=== PATIENT | female | born 1960 | race Caucasian/White ===

== ENCOUNTER 2016-05-08 23:27 | Observation (INO) | payer OTHER ==
[2016-05-08] MEDS ORDERED: MORPHINE SULFATE 4 MG/ML SYRINGE IV STA (23:45)
[2016-05-08] MEDS ORDERED: ASPIRIN 81 MG CHEW PO STA (23:45)
[2016-05-08] MEDS ORDERED: NITROGLYCERIN OINT 1 INCH/GM PACKET TOPICAL STA (23:45)
[2016-05-08] MEDS ORDERED: SODIUM CHLORIDE 0.9% 1,000 ML IV STA (23:45)
[2016-05-08] MEDS ORDERED: ONDANSETRON 4 MG/2 ML VIAL IVP STA (23:45)
[2016-05-08 23:58] LABS: Basophils % (A) 1 %; CH 32.1; CHCM 33.4; Eosinophils # (A) 0.3 k/uL (0-0.7); Eosinophils % (A) 3 %; HCT 42.9 % (34.0-46.0); HDW 2.43; HGB 14.3 gm/dL (11.4-16.0); Luc # (Auto) 0.12; Luc % (Auto) 1; Lymphocytes # (A) 2.5 k/uL (1.0-4.8); Lymphocytes % (A) 30 %; MCH 32.2 pg (25.0-35.0); MCHC 33.3 g/dL (31.0-37.0); MCV 96.7 fL (80.0-100.0); Mean Platelet Volume 7.4; Monocytes # (A) 0.4 k/uL (0-1.0); Monocytes % (A) 4 %; Neutrophils # (A) 5.1 k/uL (1.3-7.7); Neutrophils % (A) 61 %; RBC 4.43 m/uL (3.80-5.40); RDW 13.7 % (11.5-15.5); WBC 8.4 k/uL (3.8-10.6); WBC (Perox) 8.36
[2016-05-09 00:08] LABS: ALT 29 U/L (9-52); AST 28 U/L (14-36); Alkaline Phosphatase 88 U/L (38-126); Anion Gap 12 mmol/L; Blood Urea Nitrogen 14 mg/dL (7-17); Calcium 10.3 mg/dL (8.4-10.2); Carbon Dioxide 28 mmol/L (22-30); Chloride 106 mmol/L (98-107); Glucose 84 mg/dL (74-99); Magnesium 2.2 mg/dL (1.6-2.3); Non-African American GFR(MDRD) >60 (>60 ml/min/1.73 sqM); Potassium 3.5 mmol/L (3.5-5.1); Sodium 146 mmol/L (137-145); Total Bilirubin 0.4 mg/dL (0.2-1.3); Total Protein 7.6 g/dL (6.3-8.2)
[2016-05-09 00:14] LABS: Partial Thromboplastin Time 24.2 sec (22.0-30.0); Prothrombin Time 9.9 sec (9.0-12.0)
[2016-05-09 00:20] LABS: Creatine Kinase 73 U/L (30-135)
[2016-05-09 00:33] LABS: Creatine Kinase MB 0.8 ng/mL (0.0-2.4); Troponin I <0.012 ng/mL (0.000-0.034)
--- NOTE | 2016-05-09 00:41 | XR ---
Chest PA and lateral views INDICATION: Chest pain COMPARISON: CXR 08/30/14 FINDINGS: PA and lateral views of the chest are obtained. The cardiomediastinal silhouette is within normal limits. Lungs are clear. No pleural effusion or pneumothorax. Bony elements are within normal limits. IMPRESSION: No radiographic evidence of acute cardiopulmonary disease.
[2016-05-09] MEDS ORDERED: HEPARIN SODIUM,PORCINE 5,000 UNIT/ML 1 ML VIAL IV ONE (00:49)
[2016-05-09] MEDS ORDERED: NITROGLYCERIN SL TABS 0.4 MG TAB SUBLINGUAL PRN (00:49)
--- NOTE | 2016-05-09 00:49 | ED ---
Chest Pain HPI - General Chief Complaint: Chest Pain Stated Complaint: Chest pain Time Seen by Provider: 05/08/16 23:36 Source: patient Mode of arrival: wheelchair Limitations: no limitations - History of Present Illness Initial Comments: 56 years old female came in with a chest pain started around 4 PM she was resting at the time denies any nausea no vomiting she had a shortness of breath but then she has a history of COPD chest pain was worse with deep breaths denies any fever or any chills she does cough and bringing up some phlegm so far she has no history of heart disease. Denies any headaches no neck stiffness no abdominal pain no frequency urgency dysuria no sinus symptoms of TIA or CVA - Related Data Home Medications Medication Instructions Recorded Confirmed Dicyclomine [Bentyl] 10 mg PO QID PRN 01/26/14 08/30/14 Ranitidine HCl [Zantac] 150 mg PO BID 01/26/14 08/30/14 clonazePAM [KlonoPIN] 1 mg PO BID PRN 01/26/14 08/30/14 Previous Rx's Medication Instructions Recorded Azithromycin [Zithromax Z-pack] 0 mg PO DIRECTED #6 tab 08/30/14 Promethaz-Cod 6.25-10 mg/5 ml 5 ml PO Q6HR PRN #100 bottle 08/30/14 [Phenergan with Codeine] Allergies Allergy/AdvReac Type Severity Reaction Status Date / Time Penicillins Allergy Unknown Verified 05/08/16 23:32 Childhood Review of Systems ROS Statement: Those systems with pertinent positive or pertinent negative responses have been documented in the HPI. ROS Other: All systems not noted in ROS Statement are negative. EKG Findings - EKG Comments: EKG Findings:: EKG is normal sinus rhythm ventricular rate is 93 IN interval is 136 QRS duration is 80 QT/QTc is 366/455 review of this EKG does not reveal any ST elevation or significant ST depression Past Medical History Past Medical History: COPD, GERD/Reflux Additional Past Medical History / Comment(s): past hx. colon polyps, IBS, hx. ulcerative colitis History of Any Multi-Drug Resistant Organisms: None Reported Past Surgical History: Cholecystectomy, Tonsillectomy Additional Past Surgical History / Comment(s): D & C Past Anesthesia/Blood Transfusion Reactions: No Reported Reaction Past Psychological History: Anxiety Smoking Status: Current every day smoker Past Alcohol Use History: None Reported Past Drug Use History: None Reported General Exam - General Exam Comments Initial Comments: General: The patient is awake and alert, in no distress, and does not appear acutely ill. Skin: Skin is warm and dry and no rashes or lesions are noted. Eye: Pupils are equal, round and reactive to light, extra-ocular movements are intact; there is normal conjunctiva bilaterally. Ears, nose, mouth and throat: There are moist mucous membranes and no oral lesions. Neck: The neck is supple, there is no tenderness or JVD. Cardiovascular: There is a regular rate and rhythm. No murmur, rub or gallop is appreciated. Respiratory: To auscultation bilateral, family is consistent with a moderate to severe COPD Gastrointestinal: Soft, non-distended, non-tender abdomen without masses or organomegaly noted. There is no rebound or guarding present. Bowel sounds are unremarkable. Back: There is no tenderness to palpation in the midline. There is no obvious deformity. Musculoskeletal: Normal ROM, no tenderness, There is no pedal edema. There is no calf tenderness or swelling. No cords were appreciated. Neurological: CN II-XII intact, Cranial nerves III through XII are intact. There are no obvious motor or sensory deficits. Coordination appears grossly intact. Speech is normal. Psychiatric: Cooperative, appropriate mood & affect, normal judgment. Limitations: no limitations Course Vital Signs 05/08/16 05/09/16 23:30 00:30 Temperature 98.2 F Pulse Rate 105 H 78 Respiratory 20 18 Rate Blood Pressure 161/89 162/96 O2 Sat by Pulse 99 98 Oximetry Critical Care Time Total Critical Care Time: 40 Critical Care Time: Her labs were reviewed home and those were explained to the patient patient has a quite a few risk factors she is 56 she has smoked for 44 years and medically very significant family history of heart disease both parents had a heart attack in mid 40s no her mom d-dimer, CBC, troponin, compressive metabolic panel and chest x-ray are normal I plan to heparinize her and admit her for serial cardiac markers she be admitted to the Dr. Fink's service and cardiology be consulted and she'll be heparinized him of this was discussed with the patient and she is agreeable Disposition Clinical Impression: Chest pain, Pleuritic chest pain Disposition: ADMITTED IP TO THIS HOSP Condition: Good
[2016-05-09] MEDS ORDERED: DICYCLOMINE 10 MG CAP PO PRN (00:53)
[2016-05-09] MEDS ORDERED: clonazePAM 1 MG TAB PO PRN (00:53)
[2016-05-09] MEDS ORDERED: HEPARIN SODIUM,PORCINE/D5W PMX 25,000 UNIT in DEXTROSE/WATER 1 500ML.BAG IV SCH (01:15)
[2016-05-09 01:58] VITALS: RESP 16
[2016-05-09] MEDS: MORPHINE SULFATE 2 MG/ML SYRINGE IVP PRN ×3 (03:22→11:53)
[2016-05-09 08:08] LABS: Creatine Kinase 54 U/L (30-135)
[2016-05-09 08:21] LABS: Creatine Kinase MB 0.5 ng/mL (0.0-2.4); Troponin I <0.012 ng/mL (0.000-0.034)
[2016-05-09] MEDS ORDERED: FAMOTIDINE 20 MG TAB PO SCH (09:00)
[2016-05-09] MEDS ORDERED: METOPROLOL TARTRATE 25 MG TAB PO SCH (09:00)
--- NOTE | 2016-05-09 10:54 | CONS ---
DATE OF CONSULTATION: Mrs. Beverly is a 56-year-old female with history of chronic tobacco use, history of hypertension and borderline hyperlipidemia, who presented with chest discomfort. The discomfort started yesterday 4 p.m. and has been continuous. The discomfort is worse when she takes a deep breath. She has mild cough and she is complaining of headache for a few days. Patient has no prior documented history of coronary artery disease. She is quite active physically, has no exertional chest discomfort. She has mild dyspnea related to her smoking. She has occasional palpitation. No peripheral edema. No PND. No orthopnea. She has rare dizziness. Her coronary risk factors are remarkable for smoking about 1 pack a day, borderline hyperlipidemia, and a history of hypertension. Her medications at home include Klonopin, ranitidine, Phenergan with codeine, Bentyl. REVIEW OF SYSTEMS: RESPIRATORY SYSTEM: She has history of for chronic obstructive lung disease and history of chronic tobacco use with cough. GI SYSTEM: No recent GI bleeding. She had a prior history of ulcerative colitis stable. SYSTEM: No dysuria or hematuria. NERVOUS SYSTEM: No stroke or seizure. PHYSICAL EXAMINATION: A 56-year-old female, alert, oriented, in no apparent distress. Blood pressure 131/60 with a heart rate in the 90s. HEAD: Normocephalic. EYES: Sclerae anicteric. NECK: Good upstroke. No bruit. No jugular venous distention. LUNGS: Clear to auscultation. HEART: Regular rate and rhythm. S1, S2, no S3, with systolic murmur heard at the base. No diastolic murmur. No rub. ABDOMEN: Soft, nontender, positive bowel sounds. No organomegaly. EXTREMITIES: No edema. Intact distal pulses. EKG sinus mechanism, normal axis and intervals, normal echocardiogram. Lab data revealed troponin less than 0.012. BUN AND creatinine of 14 and 0.9. Potassium 3.5. Hemoglobin 14.3. Chest x-ray with no infiltrate. IMPRESSION: 1. Chest discomfort, had respirophasic pattern, atypical for ischemic heart disease. 2. History of chronic tobacco use. 3. Prior history of hypertension. RECOMMENDATIONS: I will stop the heparin. I will proceed with stress echocardiogram. If there is no evidence of inducible ischemia, then no further cardiac workup will be needed. I have discussed with the patient the importance of smoking cessation. Thank you for this consult. We will follow with you.
--- NOTE | 2016-05-09 12:03 | ECHOF ---
Referral Reason: MEASUREMENTS -------- HEIGHT: 165.1 cm WEIGHT: 49.9 kg BP: 130/60 RVIDd: 2.7 cm (< 3.3) IVSd: 0.9 cm (0.6 - 1.1) LVIDd: 3.7 cm (3.9 - 5.3) LVPWd: 0.9 cm (0.6 - 1.1) IVSs: 1.0 cm LVIDs: 2.4 cm LVPWs: 1.5 cm LA Diam: 2.6 cm (2.7 - 3.8) LAESV Index (A-L): 14.38 ml/m Ao Diam: 2.7 cm (2.0 - 3.7) LA Diam: 2.9 cm (2.7 - 3.8) MV E Hitesh: 0.79 m/s MV DecT: 212 ms MV A Hitesh: 0.92 m/s MV E/A Ratio: 0.86 RAP: 5.00 mmHg RVSP: 18.74 mmHg FINDINGS -------- Sinus rhythm. This was a technically good study. LV size, wall thickness and systolic function are normal, with an EF greater than 55%. The right ventricle is normal in size. Normal LA size by volume 22+/-6 ml/m2. The right atrial size is normal. The aortic valve is trileaflet, and appears structurally normal. No aortic stenosis or regurgitation. Mild mitral regurgitation is present. Mild tricuspid regurgitation present. There is no evidence of pulmonary hypertension. The right ventricular systolic pressure, as measured by Doppler, is 18.74mmHg. The pulmonic valve is normal. The aortic root size is normal. There is no pericardial effusion. CONCLUSIONS -------- 1. LV size, wall thickness and systolic function are normal, with an EF greater than 55%. 2. Mild mitral regurgitation is present. 3. Mild tricuspid regurgitation present. 4. There is no evidence of pulmonary hypertension. SITE SAFETY REPRESENTATIVE: Fannie Juarez RDCS
[2016-05-09 12:36] VITALS: BP 148/81; PULSE 104; TEMP 98.5
--- NOTE | 2016-05-09 12:52 | P.HPIM ---
History of Present Illness H&P Date: 05/09/16 Chief Complaint: Chest pain HISTORY AND PHYSICAL AND DISCHARGE SUMMARY: This is a 56-year-old female patient of Dr. Malik Cobb with a past medical history of COPD, vitamin D deficiency, gastroesophageal reflux disease with hiatal hernia, irritable bowel syndrome, ulcerative colitis, hepatitis C which patient states went away without treatment, glaucoma status post laser surgery, tobacco use and dependence, anxiety. Patient states that she had chest pain that kept getting worse and worse and when she got out of the car she felt it go into her neck and jaw. She denies any sweats, nausea. She is never had this pain before. She denies any pain with activity. Pain hurts more with deep breathing. She denies any history of neck problems. She does complain of Raynaud's type phenomenon that has not been diagnosed and a family member recommended that she take witches brew and magnesium to treat. She does have a niece diagnosed with lupus and mother had lupus symptoms but not diagnosed. She came into [facility] emergency center for evaluation. Troponin has been negative on 2 draws. Echocardiogram reveals EF of 55%, mild mitral regurgitation, mild tricuspid regurgitation. No pulmonary hypertension. Patient has been placed on the observation unit and seen in consultation by Dr. Ravi from cardiology. Exercise stress test reveals negative for stress-induced ischemia. Cervical spine x-ray shows degenerative disc disease of C5-C6 with posterior spondylosis. Consider MRI follow-up. DAVID and rheumatoid factor are pending. Patient will be discharged home today in stable condition. Review of Systems All systems: negative Constitutional: Denies chills, Denies fever, Denies malaise, Denies poor appetite, Denies sweats, Denies weakness Eyes: denies blurred vision, denies pain Ears, nose, mouth and throat: Denies dysphagia, Denies headache, Denies mouth pain, Denies sore throat Cardiovascular: Reports chest pain, Reports lightheadedness, Denies leg edema, Denies paroxysmal nocturnal dyspnea, Denies shortness of breath, Denies syncope Respiratory: Denies cough, Denies cough with sputum, Denies dyspnea, Denies excessive sputum, Denies wheezing Gastrointestinal: Denies abdominal pain, Denies diarrhea, Denies nausea, Denies vomiting Genitourinary: Denies dysuria, Denies hematuria Musculoskeletal: Reports neck pain, Denies myalgias Integumentary: Denies pruritus, Denies rash Neurological: Denies numbness, Denies weakness Psychiatric: Denies anxiety, Denies depression Endocrine: Denies fatigue, Denies weight change Past Medical History Past Medical History: COPD, GERD/Reflux Additional Past Medical History / Comment(s): Hiatal hernia, past hx. colon polyps, IBS, hx. ulcerative colitis, vitamin D deficiency, hepatitis C which patient states went away without treatment, glaucoma status post laser surgery, infectious mononucleosis History of Any Multi-Drug Resistant Organisms: None Reported Past Surgical History: Cholecystectomy, Tonsillectomy Additional Past Surgical History / Comment(s): D & C, laser surgery for glaucoma Past Anesthesia/Blood Transfusion Reactions: No Reported Reaction Past Psychological History: Anxiety Smoking Status: Current every day smoker Past Alcohol Use History: None Reported Additional Past Alcohol Use History / Comment(s): Patient is a smoker one pack per day since she was 11 years old. She denies any medical marijuana, marijuana , street drug use or alcohol use. Past Drug Use History: None Reported - Past Family History Father Family Medical History: Myocardial Infarction (HI) Additional Family Medical History / Comment(s): 1st in 40's. Father at age 73 from esophageal cancer. Mother Family Medical History: Myocardial Infarction (HI) Additional Family Medical History / Comment(s): 1st in 40's. Mother at age 68 from lung cancer. Brother(s) Additional Family Medical History / Comment(s): She has 2 brothers and one has history of bladder cancer and is a smoker. Sister(s) Additional Family Medical History / Comment(s): Patient has 1 sister with no major medical problems. Daughter(s) Additional Family Medical History / Comment(s): Patient has 1 daughter and 3 sons with no major medical problems. Patient has one niece that has been diagnosed with lupus. Medications and Allergies Home Medications Medication Instructions Recorded Confirmed Type Dicyclomine [Bentyl] 10 mg PO HS 01/26/14 05/09/16 History clonazePAM [KlonoPIN] 1 mg PO HS 01/26/14 05/09/16 History Amitriptyline HCl [Elavil] 20 mg PO HS 05/09/16 05/09/16 History Black Cohosh 40 mg PO HS 05/09/16 05/09/16 History Cholecalciferol [Vitamin D3] 2,000 unit PO HS 05/09/16 05/09/16 History Fluticasone Nasal [place] [Flonase 2 spr EA NOSTRIL DAILY PRN 05/09/16 05/09/16 History Nasal [place]] L.acidoph,Paracasei, B.lactis 1 cap PO HS 05/09/16 05/09/16 History [Probiotic] Magnesium Oxide [Mag-Ox] 400 mg PO HS 05/09/16 05/09/16 History Pnv with Ca,No.72/Iron/FA 1 tab PO HS 05/09/16 05/09/16 History [ Plus Tablet] Allergies Allergy/AdvReac Type Severity Reaction Status Date / Time Penicillins Allergy Unknown Verified 05/09/16 08:07 Childhood Physical Exam Vitals: Vital Signs Temp Pulse Pulse Resp BP BP Pulse Ox 05/09/16 08:00 98 16 05/09/16 07:40 99.2 F 98 16 134/81 93 L 05/09/16 04:00 98.0 F 90 16 131/66 92 L 05/09/16 03:50 95 16 05/09/16 02:15 84 16 05/09/16 01:57 97.8 F 86 16 158/87 100 05/09/16 01:25 97.4 F L 80 18 155/69 97 05/09/16 00:55 85 20 158/99 98 Intake and Output 05/08/16 05/09/16 05/09/16 22:59 06:59 14:59 Other: Voiding Method Toilet Toilet # Voids 2 Gen: This is a 56-year-old female. She is sitting up in bed and appears to be comfortable. HEENT: Head is atraumatic, normocephalic. Pupils equal, round. Sclerae is anicteric. NECK: Supple. No JVD. No lymphadenopathy. No thyromegaly. LUNGS: Clear to auscultation. No wheezes or rhonchi. No intercostal retractions. HEART: Regular rate and rhythm. Systolic murmur. ABDOMEN: Soft. Bowel sounds are present. No masses. No tenderness. EXTREMITIES: No pedal edema. No calf tenderness. Dorsalis pedis +2 bilaterally. NEUROLOGICAL: Patient is awake, alert and oriented x3. Cranial nerves 2 through 12 are grossly intact. Results CBC & Chem 7: 05/08/16 23:40 05/08/16 23:40 Labs: Abnormal Lab Results - Last 24 Hours (Table) 05/09/16 Range/Units 06:48 APTT 31.7 H (22.0-30.0) sec Thrombosis Risk Factor Assmnt - DVT/VTE Prophylaxis DVT/VTE Prophylaxis: Mechanical Prophylaxis ordered - Choose All That Apply Each Factor Represents 1 point: Abnormal pulmonary function (COPD), Age 41-60 years Thrombosis Risk Factor Assessment Total Risk Factor Score: 2 Thrombosis Risk Factor Assessment Level: Low Risk Assessment and Plan Plan: 1. Chest pain. Echocardiogram as above. Stress test is negative, patient will be discharged home. 2. Tobacco use and dependence. Smoking cessation. 3. Irritable bowel syndrome. Continue Bentyl. 4. Anxiety. Continue Elavil and Klonopin. 5. COPD, stable. 6. Vitamin D deficiency, continue supplement. 7. Raynaud's, rule out autoimmune disease with history of lupus and family. DAVID and rheumatoid factor ordered. 8. Neck pain. Cervical spine x-ray reveals degenerative changes with spondylosis at C5-6. Patient placed on the observation unit. Discharge plan: Return home Impression and plan of care have been directed as dictated by the signing physician. Ashly Obando nurse practitioner acting as scribe for signing physician. Cc: Dr. Malik Cobb Time with Patient: Greater than 30
--- NOTE | 2016-05-09 12:55 | ECHOS ---
DATE OF SERVICE: 05/09/2016 AGE: 56Y SEX: F HT: 65" WT: 110 lbs. Protocol Osmar: X Others: Stress Echo Stage: 1 Dur. of Exercise: 4:01 *Heart Rate Blood Pressure *Rest: 104 Rest: 130/80 * *Max. Achieved: 145 Maximum BP: 144/66 85% PMHR: 139 100% PMHR: 164 *METS: 5.0 INDICATIONS: Chest pain. MEDICATIONS: Klonopin, vitamin D3, Elavil, herbal meds. Patient was exercised for a total period of 4 minutes. A peak heart rate of 145 was achieved. Maximum blood pressure of 144/66 mmHg was noted. Resting EKG shows normal sinus rhythm with normal [place] interval and QRS duration and normal ST-T waves. No ST segment depression suggestive of ischemia is noted. The baseline echocardiographic images reveal a normal left ventricular chamber size with normal left ventricular systolic function. In the immediate postexercise period, normal increase in the wall thickness and contractility is noted. FINAL IMPRESSION: This dobutamine stress echocardiographic study is negative for stress-induced ischemia. Patient's exercise tolerance is below average. EKG portion of the stress test is not suggestive of ischemia.
--- NOTE | 2016-05-09 12:59 | XR ---
EXAMINATION TYPE: XR cervical spine comp DATE OF EXAM: 05/09/2016 12:50 PM COMPARISON: NONE HISTORY: Neck pain TECHNIQUE: Four views are submitted. FINDINGS: The odontoid is intact. There are no compression deformities. The prevertebral soft tissue structur es are within normal limits. Moderate degenerative disc disease C5-C6 with posterior spondylosis. Fa cet arthropathy C4-5, C5-6 and C6-C7. IMPRESSION: 1. Degenerative disc disease C5-C6 with posterior spondylosis. Consider MRI follow-up..
[2016-05-09 13:04] LABS: Creatine Kinase 50 U/L (30-135)
[2016-05-09 13:16] LABS: Creatine Kinase MB 0.5 ng/mL (0.0-2.4); Troponin I <0.012 ng/mL (0.000-0.034)
[2016-05-09] MEDS ORDERED: ATORVASTATIN 40 MG TAB PO SCH (21:00)
[2016-05-10] MEDS ORDERED: ASPIRIN 325 MG TAB PO SCH (09:00)
== END 2016-05-09 15:08 | disposition home or self-care (01) ==
LOC: EC 23:27 → 3OBS 05-09 00:49
PROVIDERS: ADMIT Internal Medicine; ATTEND Internal Medicine
DX: R07.89 Other chest pain (principal); J44.9 Chronic obstructive pulmonary disease, unspecified; Z79.899 Other long term (current) drug therapy; Z88.0 Allergy status to penicillin; K21.9 Gastro-esophageal reflux disease without esophagitis; F41.9 Anxiety disorder, unspecified; F17.200 Nicotine dependence, unspecified, uncomplicated; Z86.010 Personal history of colon polyps; K58.9 Irritable bowel syndrome, unspecified; Z82.49 Family history of ischemic heart disease and other diseases of the circulatory system; I10 Essential (primary) hypertension; R51 Headache; E55.9 Vitamin D deficiency, unspecified; Z80.0 Family history of malignant neoplasm of digestive organs; Z80.1 Family history of malignant neoplasm of trachea, bronchus and lung; I73.00 Raynaud's syndrome without gangrene; M47.812 Spondylosis without myelopathy or radiculopathy, cervical region; M50.322 Other cervical disc degeneration at C5-C6 level
CPT/HCPCS: 96376; 96360; 96374; 96375 ×2; 99291; 36415; 93005; 93017; 93306; 93350; 85379; 83880; 80053; 82550 ×2; 82553 ×2; 83735; 84484 ×2; 85025; 85610; 85730 ×2; 86431; 86038; 71020; 72050; 96361; G0378; J2270 ×2; J1644 ×2; J2405; 96366

== ENCOUNTER 2017-05-02 06:49 | Day surgery (SDC) | payer OTHER ==
[2017-04-27 15:27] VITALS: BMI 20.2
[~2017-05-02 06:49] MED LIST: LACTATED RINGERS 1,000 ML IV SCH; MOXIFLOXACIN HCL 0.5% DROPS 3 ML BTL OP ONE; TETRACAINE 0.5% OPHTH (PF) DROPS 4 ML BTL OP ONE; TIMOLOL 0.5% OPHTH DROPS 5 ML BTL OP ONE
[2017-05-02] MEDS: CYCLOPENTOLATE 1% OPHTH SOLN 2 ML BTL OP ONE ×3 (07:29→07:45)
[2017-05-02] MEDS: PHENYLEPHRINE 2.5% OPHTH DRP 2ML OP NR ×3 (07:32→07:49)
[2017-05-02] MEDS ORDERED: LIDOCAINE 1% 20 ML VIAL (10MG/ML) FOR IV START INTRADERMA ONE (07:49)
[2017-05-02] MEDS ORDERED: LACTATED RINGERS 1,000 ML IV ONE (07:50)
[2017-05-02 08:08] VITALS: RESP 18; TEMP 97.8
[2017-05-02] MEDS ORDERED: fentaNYL (PF) 50 MCG/ML 2 ML AMP ONE (08:12)
[2017-05-02] MEDS ORDERED: MIDAZOLAM 2 MG/2 ML VIAL ONE (08:12)
[2017-05-02] MEDS ORDERED: EPINEPHrine (PF) 0.3 ML in BALANCED SALT IRRIG SOLN COMB2 500 ML IRRIGATION ONE (08:15)
[2017-05-02] MEDS ORDERED: BALANCED SALT IRRIG SOLN COMB2 15 ML IRRIG.SOLN IRRIGATION ONE (08:23)
[2017-05-02] MEDS ORDERED: DUOVISC KIT (GREEN BOX) INTRAOCULA ONE (08:24)
[2017-05-02] MEDS ORDERED: LIDOCAINE 1% (PF) 10MG/ML VIAL MISCELLANE ONE (08:25)
[2017-05-02] MEDS ORDERED: CHONDROITIN-SOD HYALURONATE 1 EACH SYRINGE (0.75 ML) INTRAOCULA ONE (08:33)
--- NOTE | 2017-05-02 08:55 | P.OP ---
Date of Procedure: 05/02/17 Preoperative Diagnosis: NS & NAG Postoperative Diagnosis: with miosis Procedure(s) Performed: PIOL, iStent implant and Malyugin ring implant Implants: PCB0 24.00 & iStent [id number] Anesthesia: MAC Surgeon: Haseeb Rashid Estimated Blood Loss (ml): 0 Pathology: none sent Condition: stable Disposition: same day Indications for Procedure: NAG & blurry vision Operative Findings: no complications
[2017-05-02 09:22] VITALS: PULSE 80
[2017-05-02 09:31] VITALS: BP 160/92
--- NOTE | 2017-05-03 09:45 | OP ---
OPERATIVE REPORT DATE OF SURGERY: May 02, 2017. PROCEDURE PERFORMED: Phacoemulsification of cataract and intraocular lens implant of the right eye with eye stent implantation of the right eye. 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 POSTOPERATIVE DIAGNOSES: Nuclear sclerosis, cortical sclerosis, narrow angle glaucoma, with persistent miosis. SURGEON: Dr. Haseeb Rashid. ANESTHESIA: Topical. ESTIMATED BLOOD LOSS: None. SPECIMEN: Taken none. NARRATIVE: After obtaining the appropriate consent, the patient was brought to the operating room there she was placed on cardiac monitoring prepped and draped in the usual sterile manner. She was approached from her right temporal side and at the 11 o'clock position an MVR blade was used to create a paracentesis port. Through this opening 1% Xylocaine MPF 50 50 mix with balanced salt solution was injected into the anterior chamber. This was followed by stabilization of the anterior chamber with Viscoat. At the 9 o'clock position, a 2.5 mm keratome was used to create a self-sealing corneal flap incision in a Langerman's fashion. Additional Viscoat was placed on the patient's cornea. The patient was asked to rotate her head approximately 45 degrees and look straight ahead in that direction. A gonio prism was placed on the eye to check for the trabecular meshwork and a Glaukos eye stent GTS 100 mL was passed across the anterior chamber and implanted into the trabecular meshwork without difficulty. The patient was then rotated back into the normal supine position. At this point, it appeared that the iris dilation was waning and therefore a 7 mm Malyugin ring was inserted on the pupillary sphincter to maintain dilation through the balance of the case. Once the ring was secure, a cystotome was then introduced to begin a continuous tear capsulorrhexis which was then completed using the Utrata forceps. Hydrodissection and hydrodelineation of the lens was accomplished with balanced salt solution. Phacoemulsification of the lens utilizing phaco chop was accomplished in 7.49 seconds at 9% power. Additional Xylocaine MPF was instilled into the anterior chamber. This was followed by removal of the remaining cortex within the capsular bag and careful polishing of the posterior capsule was accomplished under the capsule vacuum mode. Provisc was then used to stabilize the capsular bag and an AUGUST PCB 0 0 24.0 diopter posterior chamber intraocular lens was then inserted into the capsular bag without difficulty. The remaining viscoelastic from in and around the intra-ocular lens was removed after removing the Malyugin ring. The eye was then brought to normal intraocular pressure through the paracentesis port and watertight integrity was confirmed. She then received 2 drops of 0.5% timolol followed by 2 drops of Vigamox was then lightly patched and shielded in the usual manner. There were no complications from the procedure. She tolerated the procedure well, was returned to outpatient recovery in good condition. MMTAMMIEL / IJN: [id number] /
== END 2017-05-02 10:12 | disposition home or self-care (01) ==
LOC: OR 06:49
PROVIDERS: ATTEND Ophthalmology
DX: H25.11 Age-related nuclear cataract, right eye (principal); H40.1131 Primary open-angle glaucoma, bilateral, mild stage; H40.033 Anatomical narrow angle, bilateral; H18.51 Endothelial corneal dystrophy; I10 Essential (primary) hypertension; H52.03 Hypermetropia, bilateral; H52.223 Regular astigmatism, bilateral; H52.4 Presbyopia; H57.03 Miosis; Z88.0 Allergy status to penicillin; F17.210 Nicotine dependence, cigarettes, uncomplicated; J44.9 Chronic obstructive pulmonary disease, unspecified; K21.9 Gastro-esophageal reflux disease without esophagitis; Z79.899 Other long term (current) drug therapy; Z88.8 Allergy status to other drugs, medicaments and biological substances; M79.7 Fibromyalgia; Z79.51 Long term (current) use of inhaled steroids; Z83.3 Family history of diabetes mellitus; Z82.49 Family history of ischemic heart disease and other diseases of the circulatory system; Z97.3 Presence of spectacles and contact lenses
CPT/HCPCS: 0191T; 66982

== ENCOUNTER 2017-05-30 07:09 | Day surgery (SDC) | payer OTHER ==
[2017-05-24 12:05] VITALS: BMI 20.5
[2017-05-30 07:45] VITALS: TEMP 97.7
[2017-05-30] MEDS ORDERED: LIDOCAINE 1% 20 ML VIAL (10MG/ML) FOR IV START INTRADERMA ONE (08:01)
[2017-05-30] MEDS: CYCLOPENTOLATE 1% OPHTH SOLN 2 ML BTL OP ONE ×3 (08:10→08:22)
[2017-05-30] MEDS: PHENYLEPHRINE 2.5% OPHTH DRP 2ML OP NR ×3 (08:13→08:25)
[2017-05-30] MEDS ORDERED: DUOVISC KIT (GREEN BOX) INTRAOCULA ONE (08:46)
[2017-05-30] MEDS ORDERED: BALANCED SALT IRRIG SOLN COMB2 15 ML IRRIG.SOLN IRRIGATION ONE (08:46)
[2017-05-30] MEDS ORDERED: LIDOCAINE 1% (PF) 10MG/ML VIAL MISCELLANE ONE (08:46)
[2017-05-30] MEDS ORDERED: fentaNYL (PF) 50 MCG/ML 2 ML AMP ONE (08:47)
[2017-05-30] MEDS ORDERED: MIDAZOLAM 2 MG/2 ML VIAL ONE (08:47)
[2017-05-30] MEDS ORDERED: EPINEPHrine (PF) 0.3 ML in BALANCED SALT IRRIG SOLN COMB2 500 ML IRRIGATION ONE (08:55)
[2017-05-30] MEDS ORDERED: EPINEPHrine (PF) 1 MG/ML AMP MISCELLANE ONE (09:02)
--- NOTE | 2017-05-30 09:21 | P.OP ---
Date of Procedure: 05/30/17 Preoperative Diagnosis: NS & CS glaucoma Postoperative Diagnosis: same Procedure(s) Performed: PIOL & iSTent implantation OS Implants: PCB00 24.50 & [id number] Anesthesia: MAC Surgeon: Haseeb Rashid Estimated Blood Loss (ml): 0 Pathology: none sent Condition: stable Disposition: same day Indications for Procedure: blurry vision and glaucoma Operative Findings: no complications
[2017-05-30 09:25] VITALS: RESP 16
[2017-05-30 09:54] VITALS: BP 153/94; PULSE 76
--- NOTE | 2017-05-30 14:17 | OP ---
OPERATIVE REPORT DATE OF SURGERY: May 30, 2017. PROCEDURE PERFORMED: Phacoemulsification of cataract and intraocular lens implant of the left eye with eye stent implantation, left eye. 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 POSTOPERATIVE DIAGNOSES: Nuclear sclerosis with narrow anterior chamber angle and primary open angle glaucoma mild stage. SURGEONS: Dr. Haseeb Rashid. ANESTHESIA: Topical. ESTIMATED BLOOD LOSS: None. SPECIMEN: Taken none. NARRATIVE: After obtaining the appropriate consent, the patient was brought to the operating room, there she was placed on cardiac monitoring prepped and draped in the usual sterile manner. She was approached from her left temporal side and at the 5 o'clock position an MVR blade was used to create a paracentesis port. Through this opening 1% Xylocaine MPF 50 50 mix with balanced salt solution was injected into the anterior chamber. This was followed by stabilization of the anterior chamber with Viscoat. At the 3 o'clock position, a 2.5 mm keratome was used to create a self-sealing corneal flap incision in Langerman's fashion. The patient was then asked to turn her head to her right approximately 45 degrees and maintaining gaze in that general direction. A small amount of Viscoat was placed on the patient's cornea and a gonio prism was placed to examine the trabecular meshwork. This area was completely wide open. Therefore, a Agrar33 stent model number DTS 100 mL was then passed across the patient's anterior chamber and placed into the trabecular meshwork without difficulty. She was then rotated back into the normal supine position where a cystotome was used to start a continuous tear capsulorrhexis which was completed using the Utrata forceps. Hydrodissection and hydrodelineation of the lens was accomplished with balanced salt solution. Phacoemulsification of the lens utilizing phaco chop was accomplished in 6.78 seconds at 8% power. Additional Xylocaine MPF was instilled into the anterior chamber. This was followed by removal of the remaining cortex under irrigation and aspiration along with careful polishing of the posterior capsule in capsule vacuum mode. Additional Provisc was then used to stabilize the capsular bag and an AUGUST PZB 0 0 24.5 diopter posterior chamber intraocular lens was then placed into the capsular bag without difficulty. The remaining viscoelastic was then removed under irrigation aspiration. The eye was brought to normal intraocular pressure through the paracentesis port with balanced salt solution. The eye was confirmed watertight. She then received 2 drops of 0.5% timolol followed by 2 drops of Vigamox, was then lightly patched and shielded in the usual manner. There were no complications from the procedure. She tolerated the procedure well and was returned to outpatient recovery in good condition. MMODL / STEPHANIEN: [id number] /
== END 2017-05-30 10:04 | disposition home or self-care (01) ==
LOC: OR 07:09
PROVIDERS: ATTEND Ophthalmology
DX: H25.12 Age-related nuclear cataract, left eye (principal); F17.210 Nicotine dependence, cigarettes, uncomplicated; H40.1121 Primary open-angle glaucoma, left eye, mild stage; M79.7 Fibromyalgia; H40.032 Anatomical narrow angle, left eye; H18.51 Endothelial corneal dystrophy; H52.03 Hypermetropia, bilateral; I10 Essential (primary) hypertension; Z88.0 Allergy status to penicillin; H52.4 Presbyopia; H52.223 Regular astigmatism, bilateral; Z79.899 Other long term (current) drug therapy
CPT/HCPCS: 0191T; 66984

== ENCOUNTER → 2017-10-12 | Outpatient (CLI) | payer OTHER ==
[2017-10-12 12:04] LABS: HCT 46.1 % (34.0-46.0); MCH 31.9 pg (25.0-35.0); MCHC 32.5 g/dL (31.0-37.0); MCV 98.2 fL (80.0-100.0); Mean Platelet Volume 7.5; Platelet Count 184 k/uL (150-450); RBC 4.69 m/uL (3.80-5.40); RDW 14.1 % (11.5-15.5); WBC 6.6 k/uL (3.8-10.6)
[2017-10-12 12:37] LABS: Anion Gap 8 mmol/L; Blood Urea Nitrogen 13 mg/dL (7-17); Carbon Dioxide 25 mmol/L (22-30); Chloride 107 mmol/L (98-107); Sodium 140 mmol/L (137-145)
== END | disposition home or self-care (01) ==
LOC: LABPAT 11:33
PROVIDERS: ATTEND Internal Medicine Interventional Cardiology
DX: Z01.812 Encounter for preprocedural laboratory examination (principal)
CPT/HCPCS: 36415; 80051; 82565; 84520; 85027

== ENCOUNTER 2017-10-18 06:27 | Observation (INO) | payer OTHER ==
[2017-10-18] MEDS ORDERED: ATORVASTATIN 80 MG TAB PO STA (06:51)
[2017-10-18] MEDS ORDERED: ASPIRIN 325 MG TAB PO STA (06:51)
[2017-10-18] MEDS ORDERED: ALPRAZolam 0.5 MG TAB PO PRN (06:51)
[2017-10-18] MEDS ORDERED: SODIUM CHLORIDE 0.9% 1,000 ML in EMPTY BAG 1 BAG IV ONE (06:51)
[2017-10-18] MEDS ORDERED: NITROGLYCERIN SL TABS 0.4 MG TAB SUBLINGUAL PRN ×2 (06:51→08:20)
[2017-10-18] MEDS ORDERED: ALPRAZolam 0.25 MG TAB PO PRN (06:51)
[2017-10-18] MEDS ORDERED: fentaNYL (PF) 50 MCG/ML 2 ML AMP IVP ONE (07:30)
[2017-10-18] MEDS ORDERED: LIDOCAINE 1% (PF) 10MG/ML VIAL SQ ONE (07:35)
[2017-10-18] MEDS: MIDAZOLAM 2 MG/2 ML VIAL IVP ONE ×2 (07:38→07:53)
[2017-10-18] MEDS ORDERED: IV FLUID CONTINUATION 1,000 ML IV ONE (07:39)
[2017-10-18] MEDS ORDERED: VERAPAMIL SYRINGE (5 MG/10 ML) INTRAARTER ONE (07:40)
[2017-10-18] MEDS ORDERED: BIVALIRUDIN BOLUS 250 MG/50 ML IV ONE (07:53)
[2017-10-18] MEDS ORDERED: BIVALIRUDIN 250 MG in SODIUM CHLORIDE 0.9% 50 ML IV ONE (07:53)
[2017-10-18] MEDS ORDERED: CLOPIDOGREL 75 MG TAB PO ONE (07:56)
[2017-10-18] MEDS ORDERED: NITROGLYCERIN 1000MCG/10ML SYRINGE INTRACORON ONE (07:57)
[2017-10-18] MEDS ORDERED: IOPAMIDOL-370 125ML BTL INJ ONE (08:02)
[2017-10-18] MEDS ORDERED: IOPAMIDOL-370 100ML BTL INJ ONE (08:07)
[2017-10-18] MEDS ORDERED: RX INFO: IV CONTRAST WAS GIVEN 1 EACH MISC MISCELLANE PRN (08:20)
[2017-10-18] MEDS ORDERED: ATROPINE SULFATE 0.1 MG/ML 10ML SYRINGE IV PRN (08:20)
[2017-10-18] MEDS ORDERED: MAG HYDROX/AL HYDROX/SIMETH 30 ML CUP PO PRN (08:20)
[2017-10-18] MEDS ORDERED: SODIUM CHLORIDE 0.9% 1,000 ML IV SCH (08:30)
--- NOTE | 2017-10-18 08:53 | CC ---
CARDIAC CATHETERIZATION REPORT Mrs. Beverly is a 57-year-old female with known history of chronic tobacco use, history of hypertension and a family history of premature coronary artery disease who has been complaining of episode of chest discomfort. She has underwent a myocardial perfusion imaging that revealed evidence of inducible ischemia. In view of that, recommendation was made regarding cardiac catheterization. The procedure as well as the risks and the complications were discussed with the patient who is in full understanding and agreement. 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 Using Xylocaine anesthesia in the Seldinger technique, a 6-Salvadorean sheath was introduced in the right radial artery. Selective right and left angiography performed using 5-Salvadorean 3.5 bend right and left Meet catheter. Multiple views of the coronary artery including hemiaxial views obtained. Following that angioplasty and stenting was performed. Following that 5-Salvadorean tight pigtail catheter was left ventricle and a 30-degree AL view of the left ventricle was obtained. Following that, catheter and sheaths were removed. Hemostasis was obtained with deployment of a TR band. There was no immediate complication. Patient is returned to her room in stable condition. FINDINGS: FLUOROSCOPY: There was mild calcification involving the right coronary artery and the left anterior descending artery. LEFT MAIN: This is a large-sized vessel bifurcating in left circumflex, left anterior descending artery. Left main coronary artery has no evidence of high-grade stenosis. LEFT ANTERIOR DESCENDING ARTERY: This is a large-sized vessel reaching to the apex with wraparound apex segment giving rise to a large diagonal branch. The left anterior descending artery proximally at the ostium is calcified and has a 10% to 20% plaque. LEFT CIRCUMFLEX: This is a nondominant large vessel giving rise to 3 obtuse marginal branches. In the mid segment at the takeoff of the second obtuse marginal branch, there is an 80% to 85% stenosis. The rest of the vessel has no high-grade stenosis. RIGHT CORONARY ARTERY: This is a large dominant vessel bifurcating distally PDA and posterolateral segment and branches. The right coronary artery has mild plaque in the mid segment of about 20% to 30%. The rest of the vessel has no high-grade stenosis. LEFT VENTRICULOGRAM: Left ventriculogram was performed in 30-degree AL view and revealed a normal left ventricular size and systolic function. The ejection fraction is 60%. There was no significant mitral regurgitation. HEMODYNAMICS: There was no gradient across the aortic valve. The left ventricular end- diastolic pressure key 10 to 12 mmHg. CONCLUSION: 1. Mildly calcified coronary arteries. 2. Significant stenosis in the mid left circumflex and the origin of the second obtuse marginal branch. 3. Mild disease in the left anterior descending artery and the right coronary artery. 4. Normal left ventricular size and systolic function. RECOMMENDATION: In view of finding anatomy, I recommend proceeding with angioplasty and stenting of the left circumflex. The procedure as well as risks and the complications were discussed with the patient who is in full understanding and agreement. Of note, the patient received intra-arterial verapamil. MMODL / IJN: [id number] /
--- NOTE | 2017-10-18 08:59 | PTCA ---
PERCUTANEOUSTRANS CORORONARY ANGIOGRAPHY Mrs Beverly is a 57-year-old female with a known history of hypertension, chronic tobacco use and family history of premature coronary artery disease who has been complaining of chest discomfort and abnormal myocardial perfusion imaging underwent a cardiac catheterization and was found to have significant obstructive disease involving the left circumflex in the origin of the second obtuse marginal branch. In view of that, recommendation was made regarding angioplasty and stenting. The procedure as well as the risks and the complication were discussed with the patient who is in full understanding and agreement. PROCEDURE: A 6-Swedish FL3.5 guiding catheter introduced in the system. After cannulating the left main, a 0.014 balanced medium weight J-wire was advanced across the lesion, positioned distally then a 2.5 x 15 mm Xience Alpine stent was advanced, deployed and post dilated at 14 atmospheres. After the last inflation, after appropriate wait, the balloon and the guidewire were withdrawn back in the guiding catheter. Images were obtained and repeated. Those images reveal stable successful stenting. At that point, a 6-Swedish tight pigtail catheter was introduced in the left ventricle and left ventriculography was performed. Following that, catheter and sheaths were removed. Hemostasis was obtained with deployment of an TR band. There was no immediate complication. Patient is returned to her room in stable condition. Of note, the patient had chest discomfort with the inflation that resolved at the end of the procedure. She received Angiomax per protocol as well as oral loading dose of clopidogrel. RESULTS: Successful stenting of the second obtuse marginal branch and mid left circumflex with reduction of stenosis from 80% to 0%. RECOMMENDATION: The patient will be continued on aspirin, Plavix and aggressive coronary risk modification. Those findings and recommendation were discussed with the patient and her family who are in full understanding and agreement. DURATION OF PROCEDURE: 36 minutes. MMODL / IJN: [id number] /
[2017-10-18 09:37] VITALS: BMI 18.8
[2017-10-18] MEDS: ASPIRIN 81 MG PO SCH (10:05)
[2017-10-18] MEDS: ACETAMINOPHEN TAB 500 MG TAB PO PRN (17:10)
[2017-10-18] MEDS ORDERED: clonazePAM 1 MG TAB PO SCH (21:00)
[2017-10-18] MEDS ORDERED: ATORVASTATIN 40 MG TAB PO SCH (21:00)
[2017-10-18] MEDS ORDERED: ZOLPIDEM 5 MG TAB PO PRN (21:00)
[2017-10-18] MEDS ORDERED: DICYCLOMINE 20 MG TAB PO SCH (21:00)
[2017-10-18] MEDS ORDERED: MAGNESIUM OXIDE 400 MG TAB PO SCH (21:00)
[2017-10-18] MEDS ORDERED: LISINOPRIL 2.5 MG TAB PO SCH (21:00)
[2017-10-18] MEDS ORDERED: CHOLECALCIFEROL 1,000 UNIT TAB PO SCH (21:00)
[2017-10-18] MEDS ORDERED: AMITRIPTYLINE HCL 10 MG TAB PO SCH (21:00)
[2017-10-18] MEDS ORDERED: amLODIPine 2.5 MG TAB PO SCH (21:00)
[2017-10-18] MEDS ORDERED: FAMOTIDINE 20 MG TAB PO SCH (21:00)
[2017-10-18] MEDS: MORPHINE SULFATE 2 MG/ML SYRINGE IVP PRN (22:52)
[2017-10-19] MEDS: MORPHINE SULFATE 2 MG/ML SYRINGE IVP PRN (04:33)
[2017-10-19 06:13] LABS: Anion Gap 12 mmol/L; Blood Urea Nitrogen 14 mg/dL (7-17); Calcium 9.2 mg/dL (8.4-10.2); Carbon Dioxide 20 mmol/L (22-30); Chloride 108 mmol/L (98-107); Glucose 100 mg/dL (74-99); Sodium 140 mmol/L (137-145)
[2017-10-19 08:07] VITALS: BP 141/80; PULSE 103; RESP 16; TEMP 98.2
[2017-10-19] MEDS: ACETAMINOPHEN TAB 500 MG TAB PO PRN (08:15)
[2017-10-19] MEDS: ASPIRIN 81 MG PO SCH (08:17)
[2017-10-19] MEDS ORDERED: CLOPIDOGREL 75 MG TAB PO SCH (09:00)
--- NOTE | 2017-10-19 11:45 | P.PN ---
Subjective Progress Note Date: 10/19/17 Discharge note This Is a 57-year-old female with known history of chronic tobacco use, hypertension, family history of premature coronary artery disease who underwent myocardial perfusion imaging which revealed evidence of inducible ischemia in view of that patient was admitted to the hospital to undergo cardiac catheterization. This was performed yesterday by Dr. Ravi, subsequently she underwent angioplasty and stenting of the circumflex artery. She was seen and examined this morning, denied any chest pain, breathing overall has been stable. She was complaining last evening of some discomfort in the right arm area, right radial site this morning looks good, it soft and she has a good distal pulse. Blood pressure 140/80, heart rate in the 70s, 97% on room air. Sodium 140, potassium 4.0, BUN 14, creatinine 0.7. Objective - Vital Signs Vital signs: Vital Signs Temp 98.2 F 10/19/17 08:00 Pulse 103 H 10/19/17 08:00 Resp 16 10/19/17 08:00 BP 141/80 10/19/17 08:00 Pulse Ox 97 10/19/17 08:00 Intake & Output 10/18/17 10/19/17 10/19/17 18:59 06:59 18:59 Intake Total 1687 Output Total 275 Balance 1412 Weight 49.8 kg 52.3 kg Intake: IV 905 Sodium Chloride 0.9% 1, 800 000 ml @ 100 mls/hr IV . Q10H [facility] Rx#:[id number] Oral 782 Output: Urine 275 Other: Voiding Method Toilet # Voids 1 1 - Exam PHYSICAL EXAMINATION: GENERAL: 87-year-old female in no acute distress at the time of my examination HEENT: Head is atraumatic, normocephalic. Pupils equal, round. Sclera anicteric. Conjunctiva are clear. Mucous membranes of the mouth are moist. Neck is supple. There is no elevated jugular venous pressure.] bruit is heard. HEART EXAMINATION: Heart S1, S2 normal. No murmur or gallop heard. CHEST EXAMINATION: Lungs are clear to auscultation and precussion. No chest wall tenderness is noted on palpation or with deep breathing. ABDOMEN: Soft, nontender. Bowel sounds are heard. No organomegaly noted. EXTREMITIES: 2+ peripheral pulses with no evidence of peripheral edema and no calf tenderness noted. Right radial site, soft, clean and dry, good distal pulse. NEUROLOGIC patient is awake, alert and oriented ?-3. . - Labs CBC & Chem 7: 10/19/17 05:32 Labs: Abnormal Lab Results - Last 24 Hours (Table) 10/19/17 Range/Units 05:32 Chloride 108 H (98-107) mmol/L Carbon Dioxide 20 L (22-30) mmol/L Glucose 100 H (74-99) mg/dL Assessment and Plan Plan: Assessment and plan #1 status post angioplasty and stenting of the circumflex artery #2 nicotine dependence #3 family history of premature coronary artery disease Plan Patient will be discharged home today. We will make her a follow-up appointment to see Dr. Ravi in the office in one week. Discharge medications include Norvasc 2.5 mg daily, Ecotrin 81 mg daily, Lipitor 40 mg daily, Plavix 75 mg daily, Zestril 2-1/2 mg daily, sublingual nitroglycerin as needed for chest pain. has been educated regarding her medications as well as the importance of nicotine cessation. DNP note has been reviewed, I agree with a documented findings and plan of care. Patient was seen and examined.
== END 2017-10-19 10:24 | disposition home or self-care (01) ==
LOC: CATHCVL 06:27 → 6SEL 08:10 → CATHCVL 10-19 06:32 → 6SEL 10-19 06:32
PROVIDERS: ADMIT Internal Medicine Interventional Cardiology; ATTEND Internal Medicine Interventional Cardiology
DX: I25.10 Atherosclerotic heart disease of native coronary artery without angina pectoris (principal); I10 Essential (primary) hypertension; Z82.49 Family history of ischemic heart disease and other diseases of the circulatory system; M79.7 Fibromyalgia; F17.210 Nicotine dependence, cigarettes, uncomplicated; Z79.899 Other long term (current) drug therapy; Z88.0 Allergy status to penicillin
CPT/HCPCS: 92928; 93458; 80048; G0378; C9600; C1769 ×2; C1887; C1894; C1874; J2250; J3010; J2270 ×2; J0583; J2001; Q9967 ×2

== ENCOUNTER → 2018-01-28 | Outpatient (CLI) | payer OTHER ==
[2018-01-28 15:41] LABS: Albumin 4.9 g/dL (3.80-4.90); Albumin/Globulin Ratio 2.58 (1.20-2.10); Anion Gap 6.3 mmol/L (4.00-12.00); Calcium 9.6 mg/dL (8.7-10.3); Carbon Dioxide 24.7 mmol/L (21.6-31.8); Globulin 1.9 g/dL (1.6-3.3); LDL Cholesterol,Calculated 78.8 mg/dL (0.0-131.0); Potassium 4.1 mmol/L (3.5-5.5); Total Bilirubin 0.5 mg/dL (0.3-1.2); Total Protein 6.8 g/dL (6.2-8.2); VLDL Calculation 15.2 mg/dL (5.00-40.00)
== END | disposition home or self-care (01) ==
LOC: LABWHC1 11:44
PROVIDERS: ATTEND Internal Medicine Interventional Cardiology
DX: E78.2 Mixed hyperlipidemia (principal)
CPT/HCPCS: 36415; 80053; 80061

== ENCOUNTER → 2018-08-14 | Outpatient (CLI) | payer OTHER ==
[2018-08-14 17:31] LABS: HCT 42.3 % (34.0-46.0); HGB 14.1 gm/dL (11.4-16.0); MCHC 33.3 g/dL (31.0-37.0); MCV 96.1 fL (80.0-100.0); Mean Platelet Volume 7.9; Platelet Count 165 k/uL (150-450); RDW 13.8 % (11.5-15.5); WBC 8.3 k/uL (3.8-10.6)
[2018-08-14 17:52] LABS: African American GFR (CKD) >90 (>60 ml/min/1.73 sqM); Anion Gap 7 mmol/L; Blood Urea Nitrogen 10 mg/dL (7-17); Carbon Dioxide 25 mmol/L (22-30); Chloride 105 mmol/L (98-107); Potassium 4.4 mmol/L (3.5-5.1); Sodium 137 mmol/L (137-145)
== END | disposition home or self-care (01) ==
LOC: LABPAT 16:41
PROVIDERS: ATTEND Internal Medicine Interventional Cardiology
DX: Z01.812 Encounter for preprocedural laboratory examination (principal); I25.10 Atherosclerotic heart disease of native coronary artery without angina pectoris
CPT/HCPCS: 80051; 82565; 84520; 85027

== ENCOUNTER 2018-08-22 06:05 | Day surgery (SDC) | payer OTHER ==
[2018-08-20 11:15] VITALS: BMI 18.5
[2018-08-22] MEDS ORDERED: ALPRAZolam 0.25 MG TAB PO PRN (06:53)
[2018-08-22] MEDS ORDERED: SODIUM CHLORIDE 0.9% 1,000 ML in EMPTY BAG 1 BAG IV ONE (06:53)
[2018-08-22] MEDS ORDERED: ASPIRIN 325 MG TAB PO ONE (06:53)
[2018-08-22] MEDS ORDERED: LIDOCAINE 1% INJ 10MG/ML (20 ML MDV) ONE (07:17)
[2018-08-22] MEDS ORDERED: VERAPAMIL 2.5 MG/ML 2 ML AMP ONE (07:18)
[2018-08-22] MEDS ORDERED: fentaNYL (PF) 50 MCG/ML 2 ML AMP ONE (07:18)
[2018-08-22] MEDS ORDERED: SODIUM CHLORIDE 0.9% 1,000 ML IV ONE (07:20)
[2018-08-22] MEDS ORDERED: fentaNYL (PF) 50 MCG/ML 2 ML AMP IV ONE (07:45)
[2018-08-22] MEDS ORDERED: LIDOCAINE 1% INJ 10MG/ML (20 ML MDV) SQ ONE (07:50)
[2018-08-22] MEDS: MIDAZOLAM (PF) 2 MG/2 ML VIAL IV ONE ×2 (07:51→08:01)
[2018-08-22] MEDS: VERAPAMIL SYRINGE (5 MG/10 ML) INTRAARTER ONE ×2 (07:52→07:57)
[2018-08-22] MEDS ORDERED: HEPARIN SODIUM 1,000 UN/ML (10ML VL) ONE (07:59)
[2018-08-22] MEDS ORDERED: HEPARIN SODIUM 1,000 UN/ML (10ML VL) IV ONE (08:00)
[2018-08-22] MEDS ORDERED: IOPAMIDOL-370 125ML BTL INJ ONE (08:04)
[2018-08-22] MEDS ORDERED: NITROGLYCERIN SL TABS 0.4 MG TAB SUBLINGUAL PRN (08:19)
[2018-08-22] MEDS ORDERED: RX INFO: IV CONTRAST WAS GIVEN 1 EACH MISC MISCELLANE PRN (08:19)
[2018-08-22] MEDS ORDERED: SODIUM CHLORIDE 0.9% 1,000 ML IV SCH (08:30)
--- NOTE | 2018-08-22 08:54 | CC ---
CARDIAC CATHETERIZATION REPORT Mrs. Beverly is a 58-year-old female with a known history of coronary artery disease, prior history of stenting, history of hypertension, and chronic tobacco use, who presented with symptoms of chest discomfort, exertion pattern at times that somewhat reminds her of the way she felt in October. In view of that, recommendation made regarding cardiac catheterization, the procedures, risks and complication were discussed with the patient who is in full understanding and agreement. 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 Using Xylocaine anesthesia and Seldinger technique, a 6-Kazakh sheath was introduced in the right radial artery. Selective right and left coronary angiography were performed using 5- Kazakh 3.5 bend right and left Meet catheter, multiple views of the coronary artery including hemiaxial views obtained following that a 5-Kazakh tight pigtail catheter was introduced into the left ventricle and a 30 degree AL view of the left ventricle was obtained. Following that, catheter and sheaths were removed, hemostasis was obtained with deployment of a TR band. There was no immediate complication. Patient is returned to her room in stable condition. Of note, the patient received a total of 3000 units of intravenous heparin. FINDINGS: LEFT MAIN: This is a large-sized vessel, bifurcating into left circumflex, left anterior descending artery. Left main coronary artery has no evidence of high-grade stenosis. LEFT ANTERIOR DESCENDING ARTERY: This is a large-sized vessel reaching toward the apex that tapers down distal third, giving rise to a large diagonal branch. The left anterior descending artery has mild plaque of 10% to 20% in the mid segment without any evidence of high-grade stenosis. LEFT CIRCUMFLEX: This is a large nondominant vessel giving rise to 2 obtuse marginal branches. The stented segment at the mid left circumflex and second obtuse marginal branch is patent. There is mild plaque proximal to it about 10%-20% The rest of the vessel has no high-grade stenosis. RIGHT CORONARY ARTERY: This is a dominant vessel bifurcating distally into PDA and posterolateral segment and branches. The right coronary artery as well as branches have no evidence of obstructive coronary artery disease. LEFT VENTRICULOGRAM: Left ventriculogram is performed in 30 degree AL view and revealed normal left ventricular size and systolic function. Ejection fraction is 60%. There was no significant mitral regurgitation. Calcification of the distal aorta was noted. CONCLUSION: 1. No evidence of restenosis at the site of prior stenting. 2. Mild disease involving the left anterior descending artery and the left circumflex. 3. Normal left ventricular size and systolic function with calcification of the distal aorta. RECOMMENDATION: In view of finding anatomy, I recommend continue medical therapy with aggressive risk factor modifications being initiated. The importance of smoking cessation were discussed with the patient and she was in full understanding and agreement. Duration of procedure is 20 minutes. MMODL / IJN: [id number] /
[2018-08-22] MEDS ORDERED: CLOPIDOGREL 75 MG TAB PO SCH (09:00)
[2018-08-22] MEDS ORDERED: BECLOMETHASONE DIPROPIONATE INHALATION SCH (09:00)
[2018-08-22 10:57] VITALS: RESP 20
[2018-08-22 13:55] VITALS: BP 129/78
[2018-08-22] MEDS ORDERED: CHOLECALCIFEROL 1,000 UNIT TAB PO SCH (21:00)
[2018-08-22] MEDS ORDERED: RANITIDINE HCL 300 MG PO SCH (21:00)
[2018-08-22] MEDS ORDERED: AMITRIPTYLINE HCL 10 MG TAB PO SCH (21:00)
[2018-08-22] MEDS ORDERED: clonazePAM 1 MG TAB PO SCH (21:00)
[2018-08-22] MEDS ORDERED: amLODIPine 2.5 MG TAB PO SCH (21:00)
[2018-08-22] MEDS ORDERED: NON-FORMULARY DRUG (Magnesium Oxide [Phillips] 500 MG) PO SCH (21:00)
[2018-08-22] MEDS ORDERED: LISINOPRIL 2.5 MG TAB PO SCH (21:00)
[2018-08-22] MEDS ORDERED: ATORVASTATIN 40 MG TAB PO SCH (21:00)
[2018-08-22] MEDS ORDERED: DICYCLOMINE 10 MG CAP PO SCH (21:00)
[2018-08-23] MEDS ORDERED: ASPIRIN 81 MG PO SCH (09:00)
== END 2018-08-22 13:30 | disposition home or self-care (01) ==
LOC: CATHCVL 06:05
PROVIDERS: ATTEND Internal Medicine Interventional Cardiology
DX: I25.110 Atherosclerotic heart disease of native coronary artery with unstable angina pectoris (principal); I70.0 Atherosclerosis of aorta; I10 Essential (primary) hypertension; F17.210 Nicotine dependence, cigarettes, uncomplicated; M79.7 Fibromyalgia; E78.2 Mixed hyperlipidemia; Z95.5 Presence of coronary angioplasty implant and graft; Z79.82 Long term (current) use of aspirin; Z79.02 Long term (current) use of antithrombotics/antiplatelets; Z79.899 Other long term (current) drug therapy; Z82.49 Family history of ischemic heart disease and other diseases of the circulatory system; Z88.0 Allergy status to penicillin
CPT/HCPCS: 93458; J2001; J3010; J1644; Q9967; J2250

== ENCOUNTER → 2018-09-10 | Outpatient (CLI) | payer OTHER ==
--- NOTE | 2018-09-10 11:56 | BD ---
EXAMINATION TYPE: Axial Bone Density DATE OF EXAM: 09/10/2018 COMPARISON: NONE CLINICAL HISTORY: osteopenia of neck, M 85.859 Height: 5'4 Weight: 109 FRAX RISK QUESTIONS: Family History (Parent hip fracture): y Secondary Osteoporosis: Current Tobacco Use: y RISK FACTORS HISTORY OF: Diet low in dairy products/other sources of calcium: y Postmenopausal woman: y MEDICATIONS: Additional Medications: vitamin D, fibromyalgia, high blood pressure, copd neuropathy Additional History: heart stents and eyes, glaucoma EXAM MEASUREMENTS: Bone mineral densitometry was performed using the Ule System. Bone mineral density as measured about the Lumbar spine is: ----- L1-L4(G/cm2): 0.984 T Score Values are as follows: ----- L2: -2.1 ----- L3: -1.6 ----- L4: -1.0 ----- L1-L4: -1.6 Bone mineral density about the R hip (g/cm2): 0.800 Bone mineral density about the L hip (g/cm2): -0.875 T Score values are as follows: -----R Neck: -1.7 -----L Neck: -1.2 -----R Total: -1.9 -----L Total: -1.7 IMPRESSION: Osteopenia (T Score between -2.5 and -1). There is slightly increased risk of fracture and the patient may be considered for treatment. Re-Screen 2-5 years. NOTE: T-SCORE=SD OF THE YOUNG ADULT MEAN.
== END | disposition home or self-care (01) ==
LOC: RADBDWWP 08:45
PROVIDERS: ATTEND Family Medicine
DX: M85.80 Other specified disorders of bone density and structure, unspecified site (principal)
CPT/HCPCS: 77080

== ENCOUNTER → 2019-12-22 | Outpatient (CLI) | payer OTHER ==
[2019-12-22 18:41] LABS: African American GFR (CKD) 93.5 (60.0-200.0); Albumin 4.4 g/dL (3.80-4.90); Anion Gap 5.3 mmol/L (4.00-12.00); BUN/Creat Ratio 13.75 Ratio (12.00-20.00); Calcium 9.6 mg/dL (8.7-10.3); Carbon Dioxide 29.7 mmol/L (21.6-31.8); Chol/HDL Ratio 3.61; Globulin 2.2 g/dL (1.6-3.3); LDL Cholesterol,Calculated 130.6 mg/dL (0.0-131.0); Non-African American GFR(CKD) 80.7 (60.0-200.0); Potassium 4.7 mmol/L (3.5-5.5); Total Bilirubin 0.3 mg/dL (0.2-1.2); Total Protein 6.6 g/dL (6.2-8.2); VLDL Calculation 28.4 mg/dL (5.00-40.00)
== END | disposition home or self-care (01) ==
LOC: LABWHC1 11:30
PROVIDERS: ATTEND Internal Medicine Interventional Cardiology
DX: E78.2 Mixed hyperlipidemia (principal)
CPT/HCPCS: 36415; 80053; 80061

== ENCOUNTER → 2021-01-20 | Outpatient (CLI) | payer OTHER ==
[2021-01-20 15:40] LABS: ALT 15 U/L (8-44); AST 23 U/L (13-35); Chol/HDL Ratio 3.85 Ratio; LDL Cholesterol,Calculated 183.3 mg/dL (0.0-131.0); VLDL Calculation 15.86 mg/dL (5.00-40.00)
== END | disposition home or self-care (01) ==
LOC: LABWHC1 10:53
PROVIDERS: ATTEND Nurse Practitioner Adult Health
DX: E78.2 Mixed hyperlipidemia (principal)
CPT/HCPCS: 36415; 80061; 84450; 84460

== ENCOUNTER → 2021-07-23 | Outpatient (CLI) | payer OTHER ==
[2021-07-23 18:14] LABS: ALT 18 U/L (8-44); AST 25 U/L (13-35); African American GFR (CKD) 92.2 (60.0-200.0); Albumin 4.6 g/dL (3.8-4.9); Alkaline Phosphatase 107 U/L (41-126); BUN/Creat Ratio 16.13 Ratio (12.00-20.00); Blood Urea Nitrogen 12.9 mg/dL (9.0-27.0); Calcium 9.3 mg/dL (8.7-10.3); Carbon Dioxide 24.8 mmol/L (20.0-27.5); Chloride 107 mmol/L (96-109); Chol/HDL Ratio 2.05 Ratio; Glucose 92 mg/dL (70-110); LDL Cholesterol,Calculated 66.4 mg/dL (0.0-131.0); Non-African American GFR(CKD) 79.6 (60.0-200.0); Potassium 4.2 mmol/L (3.5-5.5); Sodium 142 mmol/L (135-145); Total Protein 6.6 g/dL (6.2-8.2); VLDL Calculation 12.96 mg/dL (5.00-40.00)
== END | disposition home or self-care (01) ==
LOC: LABWHC1 10:41
PROVIDERS: ATTEND Internal Medicine Interventional Cardiology
DX: E78.2 Mixed hyperlipidemia (principal)
CPT/HCPCS: 36415; 80053; 80061

== ENCOUNTER → 2022-07-21 | Outpatient (CLI) | payer OTHER ==
--- NOTE | 2022-07-22 07:33 | PE ---
EXAMINATION TYPE: PET CT fusion skull to thigh DATE OF EXAM: 07/21/2022 CLINICAL INDICATION:Female, 62 years old with history of R91.1; TECHNIQUE: Following the intravenous administration of 10.0 mCi of F-18 FDG, whole body images are performed from the skull base to the midthigh. Images are reviewed on the computer in the coronal, a xial, and sagittal planes. Reconstructed rotating images are created on independent workstation and reviewed on the computer. A non-contrast CT is performed in conjunction with the PET scan. Glucose level 73 mg/dL COMPARISON: CT 08/30/2014, PET/CT None, FINDINGS: Mediastinal SUV mean is 1.7. Hepatic parenchyma SUV mean is 1.9. SKULL BASE AND NECK: No suspicious radiotracer activity. CHEST, MEDIASTINUM, AND HILAR REGION: * Right upper lung pulmonary nodule measuring 16 x 10 mm Max SUV 0.6. * Left upper lung ground glass opacity measuring 18.9 mm. ABDOMEN AND PELVIS: No suspicious radiotracer activity. OSSEOUS STRUCTURES: No suspicious radiotracer activity. Degeneration changes in the lower lumbar spin e facet joint max SUV 3.4 on the left. OTHER CT: Atherosclerosis of the carotid bifurcations and the coronary arteries. Gallbladder appears surgically absent. Large stool burden throughout the colon. Appendix appears normal. IMPRESSION: 1. Right upper lung 16 x 10 mm pulmonary nodule without FDG activity above background levels. 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 No minimum short-term follow-up with CT niraj st in 3 months is recommended. This is new from 2014. No elevated FDG activity lesions visualized. 2. Left upper lung ground glass opacity measuring 18.9 mm. Continues surveillance with CT recommende d.
== END | disposition home or self-care (01) ==
LOC: RADPETMAIN 13:56
PROVIDERS: ATTEND Internal Medicine Sleep Medicine
DX: R91.8 Other nonspecific abnormal finding of lung field (principal)
CPT/HCPCS: 78815; A9552

== ENCOUNTER → 2022-12-07 | Outpatient (CLI) | payer OTHER | END | disposition home or self-care (01) | LOC: LABWHC1 09:00 | PROVIDERS: ATTEND Internal Medicine Interventional Cardiology | DX: Z53.9 Procedure and treatment not carried out, unspecified reason (principal) ==

== ENCOUNTER 2023-01-21 06:59 | Inpatient (IN) | payer OTHER ==
[2023-01-21] MEDS ORDERED: PANTOPRAZOLE 40 MG/10 ML VIAL IVP STA (07:10)
[2023-01-21] MEDS ORDERED: SODIUM CHLORIDE 0.9% 1,000 ML IV STA (07:10)
[2023-01-21] MEDS ORDERED: HYDROmorphone 1 MG/ML 1 ML SYRINGE IVP STA ×2 (07:11→13:27)
--- NOTE | 2023-01-21 07:14 | ED ---
General Adult HPI - General Chief complaint: Abdominal Pain Stated complaint: abp Time Seen by Provider: 01/21/23 07:00 Source: patient, EMS, RN notes reviewed Mode of arrival: EMS Limitations: no limitations - History of Present Illness Initial comments: Patient is a pleasant 62-year-old female presenting to the emergency department with concerns for abdominal pain. Onset of symptoms was a few days ago. Patient has had some vomiting. Last bowel movement was around 2 or 3 weeks ago. Patient does have history of previous bowel instruction. Discomfort started becoming more severe this morning. Discomfort is mostly lower abdomen. - Related Data Home Medications Medication Instructions Recorded Confirmed Albuterol Sulfate [Proair Hfa] 1 - 2 puff INHALATION RT-Q6H PRN 08/20/18 01/21/23 Amitriptyline HCl [Elavil] 25 mg PO HS 01/21/23 01/21/23 Aspirin/Acetaminophen/Caffeine 1 tab PO Q6H PRN 01/21/23 01/21/23 [Excedrin Migraine Caplet] Cholecalciferol [Vitamin D3 (25 50 mcg PO HS 01/21/23 01/21/23 Mcg = 1000 Iu)] Clopidogrel [Plavix] 75 mg PO HS 01/21/23 01/21/23 Fluticasone Propionate 110 Mcg 1 puff INHALATION RT-BID 01/21/23 01/21/23 [Flovent 110 Mcg Inhaler] Rosuvastatin Calcium [Crestor] 40 mg PO HS 01/21/23 01/21/23 amLODIPine [Norvasc] 5 mg PO HS 01/21/23 01/21/23 methocarbamoL [Robaxin] 500 - 1,000 mg PO QID PRN 01/21/23 01/21/23 polyethylene glycoL 3350 [Miralax] 17 gm PO DAILY PRN 01/21/23 01/21/23 Previous Rx's Medication Instructions Recorded Nitroglycerin Sl Tabs [Nitrostat] 0.4 mg SUBLINGUAL Q5M PRN #25 tab 10/19/17 Allergies Allergy/AdvReac Type Severity Reaction Status Date / Time Penicillins Allergy Unknown Verified 01/21/23 13:46 Childhood Review of Systems ROS Statement: Those systems with pertinent positive or pertinent negative responses have been documented in the HPI. ROS Other: All systems not noted in ROS Statement are negative. Constitutional: Denies: fever Eyes: Denies: eye pain ENT: Denies: ear pain Respiratory: Denies: cough Cardiovascular: Denies: chest pain Endocrine: Denies: fatigue Gastrointestinal: Reports: as per HPI, abdominal pain, nausea, vomiting, constipation Musculoskeletal: Denies: back pain Skin: Denies: rash Past Medical History Past Medical History: Asthma, COPD, Fibromyalgia, GERD/Reflux, Hyperlipidemia, Hypertension, Liver Disease Additional Past Medical History / Comment(s): Hiatal hernia, past hx. colon polyps, IBS,ulcerative colitis, vitamin D deficiency, hepatitis C which patient states went away without treatment, glaucoma status post laser surgery, infectious mononucleosis History of Any Multi-Drug Resistant Organisms: None Reported Past Surgical History: Cholecystectomy, Heart Catheterization With Stent, Tonsillectomy Additional Past Surgical History / Comment(s): D & C, laser surgery for glaucoma with stents in eyes, morenita cataract with lens implants Past Anesthesia/Blood Transfusion Reactions: No Reported Reaction Date of Last Stent Placement:: 10/23 Past Psychological History: Anxiety Past Alcohol Use History: None Reported Past Drug Use History: None Reported - Past Family History Father Additional Family Medical History / Comment(s): 1st in 40's. Father at age 73 from esophageal cancer. Mother Family Medical History: Cancer, Deep Vein Thrombosis (DVT), Myocardial Infarction ([place]) Additional Family Medical History / Comment(s): 1st in 40's. Mother at age 68 from lung cancer. Brother(s) Family Medical History: Cancer Additional Family Medical History / Comment(s): She has 2 brothers and one has history of bladder cancer and is a smoker. Sister(s) Additional Family Medical History / Comment(s): Patient has 1 sister with no ma lexy medical problems. Daughter(s) Additional Family Medical History / Comment(s): Patient has 1 daughter and 3 sons with no major medical problems. Patient has one niece that has been diagnosed with lupus. General Exam Limitations: no limitations General appearance: alert, in no apparent distress Head exam: Present: normocephalic Eye exam: Present: normal appearance Neck exam: Present: normal inspection Respiratory exam: Present: normal lung sounds bilaterally Cardiovascular Exam: Present: regular rate, normal rhythm GI/Abdominal exam: Present: soft, tenderness (Mild to moderate lower abdominal tenderness), normal bowel sounds. Absent: pulsatile mass Extremities exam: Present: normal inspection Neurological exam: Present: alert Psychiatric exam: Present: normal affect, normal mood Skin exam: Present: normal color Course Vital Signs 01/21/23 01/21/23 01/21/23 07:01 08:44 12:03 Temperature 97.9 F 97.6 F Pulse Rate 74 72 79 Respiratory 18 18 18 Rate Blood Pressure 120/83 92/63 95/54 O2 Sat by Pulse 96 96 99 Oximetry Medical Decision Making - Medical Decision Making Was pt. sent in by a medical professional or institution (, PA, TUBE DRAWER, urgent care, hospital, or skilled nursing...) When possible be specific @ -No Did you speak to anyone other than the patient for history (EMS, parent, family, police, friend...)? What history was obtained from this source @ -No Did you review nursing and triage notes (agree or disagree)? Why? @ -I reviewed and agree with nursing and triage notes Were old charts reviewed (outside hosp., previous admission, EMS record, old EKG, old radiological studies, urgent care reports/EKG's, skilled nursing records)? Report findings @ -No old charts were reviewed Differential Diagnosis (chest pain, altered mental status, abdominal pain women, abdominal pain men, vaginal bleeding, weakness, fever, dyspnea, syncope, headache, dizziness, GI bleed, back pain, seizure, CVA, palpatations, mental health, musculoskeletal)? @ -Differential Abdominal Pain Women: Appendicitis, Cholecystitis, diverticulosis, ischemic bowel, pancreatitis, hepatitis, UTI, gastroenteritis, AAA, incarcerated hernia, bowel obstruction, constipation, inflammatory bowel, hepatitis, peptic ulcer disease, splenic infarction, perforated viscus, vulvitis, ovarian torsion, PID, kidney stone, placenta abruption, this is not meant to be an all-inclusive list EKG interpreted by me (3pts min.). @ -As above X-rays interpreted by me (1pt min.). @ -None done CT interpreted by me (1pt min.). @ -Computed tomography scan abdomen pelvis with increased stool U/S interpreted by me (1pt. min.). @ -None done What testing was considered but not performed or refused? (CT, X-rays, U/S, labs)? Why? @ -None What meds were considered but not given or refused? Why? @ -None Did you discuss the management of the patient with other professionals (professionals i.e. , PA, TUBE DRAWER, lab, RT, psych nurse, social media marketer, refractory mixer, teacher, chief financial officer, community case manager)? Give summary @ -Case was discussed with Dr. Roque who will admit covering Dr. Cobb Was smoking cessation discussed for >3mins.? @ -No Was critical care preformed (if so, how long)? @ -No Were there social determinants of health that impacted care today? How? (Homelessness, low income, unemployed, alcoholism, drug addiction, transportation, low edu. Level, literacy, decrease access to med. care, [facility] [facility], rehab)? @ -No Was there de-escalation of care discussed even if they declined (Discuss DNR or withdrawal of care, Hospice)? DNR status @ -No What co-morbidities impacted this encounter? (DM, HTN, Smoking, COPD, CAD, Cancer, CVA, ARF, Chemo, Hep., AIDS, mental health diagnosis, sleep apnea, morbid obesity)? @ -None Was patient admitted / discharged? Hospital course, mention meds given and route, prescriptions, significant lab abnormalities, going to OR and other pertinent info. @ -Patient with no improvement despite 2 enemas. Patient has a large amount of stool on CAT scan. Patient will be admitted. Admission orders written. Surgery will be placed on consult. Undiagnosed new problem with uncertain prognosis? @ -No Drug Therapy requiring intensive monitoring for toxicity (Heparin, Nitro, Insulin, Cardizem)? @ -No Were any procedures done? @ -No Diagnosis/symptom? @ -Abdominal pain, constipation Acute, or Chronic, or Acute on Chronic? @ -Acute, acute Uncomplicated (without systemic symptoms) or Complicated (systemic symptoms)? @ -default Side effects of treatment? @ -No Exacerbation, Progression, or Severe Exacerbation? @ -No Poses a threat to life or bodily function? How? (Chest pain, [place], [place], pneumonia, PE, COPD, DKA, ARF, appy, cholecystitis, CVA, Diverticulitis, Homicidal, Suicidal, threat to staff... and all critical care pts) @ -No - Lab Data Result diagrams: 01/21/23 07:26 01/21/23 07:26 Lab Results 01/21/23 01/21/23 01/21/23 Range/Units 07:26 07:26 07:26 WBC 22.0 H (3.8-10.6) k/uL RBC 4.34 (3.80-5.40) m/uL Hgb 13.8 (11.4-16.0) gm/dL Hct 42.2 (34.0-46.0) % MCV 97.1 (80.0-100.0) fL MCH 31.7 (25.0-35.0) pg MCHC 32.7 (31.0-37.0) g/dL RDW 13.1 (11.5-15.5) % Plt Count 267 (150-450) k/uL MPV 7.6 Neutrophils % 82 % Lymphocytes % 13 % Monocytes % 3 % Eosinophils % 1 % Basophils % 0 % Neutrophils # 18.1 H (1.3-7.7) k/uL Lymphocytes # 2.9 (1.0-4.8) k/uL Monocytes # 0.6 (0-1.0) k/uL Eosinophils # 0.3 (0-0.7) k/uL Basophils # 0.1 (0-0.2) k/uL PT 10.0 (10.0-12.5) sec INR 0.9 (<1.2) APTT 22.0 (22.0-30.0) sec Sodium 137 (137-145) mmol/L Potassium 4.4 (3.5-5.1) mmol/L Chloride 103 (98-107) mmol/L Carbon Dioxide 23 (22-30) mmol/L Anion Gap 11 mmol/L BUN 21 H (7-17) mg/dL Creatinine 0.69 (0.52-1.04) mg/dL Est GFR (CKD-EPI)AfAm >90 (>60 ml/min/1.73 sqM) Est GFR (CKD-EPI)NonAf >90 (>60 ml/min/1.73 sqM) Glucose 147 H (74-99) mg/dL Calcium 9.6 (8.4-10.2) mg/dL Total Bilirubin 1.0 (0.2-1.3) mg/dL AST 47 H (14-36) U/L ALT 35 H (4-34) U/L Alkaline Phosphatase 79 (38-126) U/L Total Protein 6.6 (6.3-8.2) g/dL Albumin 3.8 (3.5-5.0) g/dL Amylase 55 (30-110) U/L Lipase 228 (23-300) U/L Disposition Clinical Impression: Abdominal pain, Constipation Disposition: ADMITTED IP TO THIS HOSP Is patient prescribed a controlled substance at d/c from ED?: No Referrals: Malik Cobb [Primary Care Provider] - 1-2 days Time of Disposition: 14:11
[2023-01-21 07:50] LABS: Basophils # (A) 0.1 k/uL (0-0.2); Basophils % (A) 0 %; Eosinophils # (A) 0.3 k/uL (0-0.7); Eosinophils % (A) 1 %; HCT 42.2 % (34.0-46.0); HGB 13.8 gm/dL (11.4-16.0); Lymphocytes # (A) 2.9 k/uL (1.0-4.8); Lymphocytes % (A) 13 %; MCH 31.7 pg (25.0-35.0); MCHC 32.7 g/dL (31.0-37.0); MCV 97.1 fL (80.0-100.0); Mean Platelet Volume 7.6; Monocytes # (A) 0.6 k/uL (0-1.0); Monocytes % (A) 3 %; Neutrophils # (A) 18.1 k/uL (1.3-7.7); Neutrophils % (A) 82 %; Platelet Count 267 k/uL (150-450); RBC 4.34 m/uL (3.80-5.40); RDW 13.1 % (11.5-15.5)
[2023-01-21 08:18] LABS: ALT 35 U/L (4-34); AST 47 U/L (14-36); African American GFR (CKD) >90 (>60 ml/min/1.73 sqM); Albumin 3.8 g/dL (3.5-5.0); Alkaline Phosphatase 79 U/L (38-126); Amylase 55 U/L (30-110); Anion Gap 11 mmol/L; Blood Urea Nitrogen 21 mg/dL (7-17); Calcium 9.6 mg/dL (8.4-10.2); Carbon Dioxide 23 mmol/L (22-30); Chloride 103 mmol/L (98-107); Glucose 147 mg/dL (74-99); Lipase 228 U/L (23-300); Non-African American GFR(CKD) >90 (>60 ml/min/1.73 sqM); Sodium 137 mmol/L (137-145); Total Protein 6.6 g/dL (6.3-8.2)
[2023-01-21 08:23] LABS: INR 0.9 (<1.2)
[2023-01-21 08:30] LABS: Potassium 4.4 mmol/L (3.5-5.1)
--- NOTE | 2023-01-21 09:02 | CT ---
EXAMINATION TYPE: CT abdomen pelvis w con CT DLP: 475 mGycm, Automated exposure control for dose reduction was used. DATE OF EXAM: 01/21/2023 8:44 AM COMPARISON: Pet/CT 07/21/2022. CLINICAL INDICATION:Female, 62 years old with history of abdominal pain; lower abd pain TECHNIQUE: Axial CT of the ;CT abdomen pelvis w con;Sagittal and coronal reformats were created on a separate workstation. Contrast used:100 mL of Isovue 300 with IV Contrast, (none if empty) Oral contrast used: without Oral Contrast (none if empty) FINDINGS: LOWER CHEST: Unremarkable ABDOMEN LIVER: Unremarkable GALLBLADDER AND BILE DUCTS: Gallbladder is surgically absent with mild intrahepatic and extra hepatic biliary dilatation likely physiologic and a postcholecystectomy change. No evidence of choledocholit hiasis. PANCREAS: Unremarkable. SPLEEN: Unremarkable. ADRENAL GLANDS: Unremarkable. KIDNEYS AND URETERS: No evidence of hydronephrosis or renal calculus. The ureters are unremarkable. PELVIS BLADDER: Unremarkable REPRODUCTIVE: Unremarkable. ABDOMEN & PELVIS STOMACH AND BOWEL: There is a marked amount of stool burden throughout the colon extending to the inf erior the rectum. The appendix is normal. PERITONEUM/RETROPERITONEUM: No evidence of pneumoperitoneum or free fluid. VASCULATURE: No evidence of aortic aneurysm. MUSCULOSKELETAL: No acute osseous abnormalities LYMPH NODES: No gross evidence for lymphadenopathy. SOFT TISSUE/ABDOMINAL WALL: Unremarkable IMPRESSION: Marked amount of stool burden throughout the colon extending to the sigmoid colon/rectal junction.
[2023-01-21] MEDS ORDERED: LACTULOSE 20 GM/30 ML CUP PO ONE (14:11)
[2023-01-21] MEDS ORDERED: NALOXONE 0.4 MG/ML 1 ML VIAL IV PRN (14:12)
[2023-01-21] MEDS ORDERED: polyethylene glycoL 3350 17 GM POWD.PACK PO PRN (14:16)
[2023-01-21] MEDS ORDERED: ALBUTEROL NEBULIZED 2.5 MG/3 ML INHALATION PRN (14:16)
[2023-01-21] MEDS ORDERED: ASPIRIN-ACET-CAFF 250-250-65MG 1 EACH TAB PO PRN (14:16)
[2023-01-21 14:18] LABS: Hyaline Casts,Urine 14 /lpf (0-2); Mucus,Urine Rare /hpf; RBC,Urine 2 /hpf (0-5); WBC,Urine 4 /hpf (0-5)
[2023-01-21 14:19] LABS: Appearance,Urine Clear (Clear)
[2023-01-21 14:20] LABS: Color,Urine Dark Red
--- NOTE | 2023-01-21 14:24 | P.HPIM ---
History of Present Illness H&P Date: 01/21/23 History of present illness; patient is 62-year-old lady with past medical histor y significant for coronary disease, hypertension, hyperlipidemia, irritable bowel syndrome who presented to the ER because of abdominal pain. Patient stated that she has history of constipation and IBS and normally has baseline abdominal pain. Patient stated that she has not had a bowel movement for the last 2 weeks. This morning patient woke up this with severe abdominal pain located in the left lower quadrant, pain was sharp, nonradiating, not associated with any nausea or vomiting. There was no complaint of fever or chills. No complain of any blood in the stools. No complaint of chest pain or shortness of breath. Because of severe abdominal pain, patient came to the ER Initial lab work done in the ER showed WBC 22, platelet count 267, hemoglobin 13.8 sodium 137, potassium 4.4, BUNs 21, creatinine 0.69, glucose 147, AST 47, ALT 35, amylase 55, lipase 228 CT abdominal and pelvis done showed marked amount of stool burden throughout the colon extending to the sigmoid colon Patient admitted to internal medicine service REVIEW OF SYSTEMS: CONSTITUTIONAL: No fever, no malaise, no fatigue. HEENT: No recent visual problems or hearing problems. Denied any sore throat. CARDIOVASCULAR: No chest pain, orthopnea, PND, no palpitations, no syncope. PULMONARY: No shortness of breath, no cough, no hemoptysis. GASTROINTESTINAL: As mentioned in HPI NEUROLOGICAL: No headaches, no weakness, no numbness. HEMATOLOGICAL: Denies any bleeding or petechiae. GENITOURINARY: Denies any burning micturition, frequency, or urgency. MUSCULOSKELETAL/RHEUMATOLOGICAL: Denies any joint pain, swelling, or any muscle pain. ENDOCRINE: Denies any polyuria or polydipsia. The rest of the 14-point review of systems is negative. PHYSICAL EXAMINATION: GENERAL: The patient is alert and oriented x3, not in any acute distress. Well developed, well nourished. HEENT: Pupils are round and equally reacting to light. EOMI. No scleral icterus. No conjunctival pallor. Normocephalic, atraumatic. No pharyngeal erythema. No thyromegaly. CARDIOVASCULAR: S1 and S2 present. No murmurs, rubs, or gallops. PULMONARY: Chest is clear to auscultation, no wheezing or crackles. ABDOMEN: Distended, tenderness left lower quadrant ,normoactive bowel sounds. No palpable organomegaly. MUSCULOSKELETAL: No joint swelling or deformity. EXTREMITIES: No cyanosis, clubbing, or pedal edema. NEUROLOGICAL: Gross neurological examination did not reveal any focal deficits. SKIN: No rashes. Assessment and plan Abdominal pain Severe constipation History of coronary artery disease Hypertension Hyperlipidemia History of irritable bowel syndrome Monitor vital signs Monitor CBC Monitor CMP Continue IV fluids Continue pain management continue antiemetics Aggressive bowel regimen Results of CT abdominal and pelvis noted. Consults Gen. surgery Resume home Labs and medication were reviewed.. Continue same treatment. Continue with symptomatic treatment. Resume home medication. Monitor labs and vitals. DVT and GI prophylaxis. Further recommendations as per clinical course of the patient Dictation was produced using [employer] dictation software. please excuse any grammatical, word or spelling errors. Past Medical History Past Medical History: Asthma, COPD, Fibromyalgia, GERD/Reflux, Hyperlipidemia, Hypertension, Liver Disease Additional Past Medical History / Comment(s): Hiatal hernia, past hx. colon polyps, IBS,ulcerative colitis, vitamin D deficiency, hepatitis C which patient states went away without treatment, glaucoma status post laser surgery, infectious mononucleosis History of Any Multi-Drug Resistant Organisms: None Reported Past Surgical History: Cholecystectomy, Heart Catheterization With Stent, Tonsillectomy Additional Past Surgical History / Comment(s): D & C, laser surgery for glaucoma with stents in eyes, morenita cataract with lens implants Past Anesthesia/Blood Transfusion Reactions: No Reported Reaction Date of Last Stent Placement:: 10/23 Past Psychological History: Anxiety Past Alcohol Use History: None Reported Past Drug Use History: None Reported - Past Family History Father Additional Family Medical History / Comment(s): 1st in 40's. Father at age 73 from esophageal cancer. Mother Family Medical History: Cancer, Deep Vein Thrombosis (DVT), Myocardial Infarction ([place]) Additional Family Medical History / Comment(s): 1st in 40's. Mother at age 68 from lung cancer. Brother(s) Family Medical History: Cancer Additional Family Medical History / Comment(s): She has 2 brothers and one has history of bladder cancer and is a smoker. Sister(s) Additional Family Medical History / Comment(s): Patient has 1 sister with no major medical problems. Daughter(s) Additional Family Medical History / Comment(s): Patient has 1 daughter and 3 sons with no major medical problems. Patient has one niece that has been diagnosed with lupus. Medications and Allergies Home Medications Medication Instructions Recorded Confirmed Type Nitroglycerin Sl Tabs [Nitrostat] 0.4 mg SUBLINGUAL Q5M PRN #25 tab 10/19/17 01/21/23 Rx Albuterol Sulfate [Proair Hfa] 1 - 2 puff INHALATION RT-Q6H PRN 08/20/18 01/21/23 History Amitriptyline HCl [Elavil] 25 mg PO HS 01/21/23 01/21/23 History Aspirin/Acetaminophen/Caffeine 1 tab PO Q6H PRN 01/21/23 01/21/23 History [Excedrin Migraine Caplet] Cholecalciferol [Vitamin D3 (25 50 mcg PO HS 01/21/23 01/21/23 History Mcg = 1000 Iu)] Clopidogrel [Plavix] 75 mg PO HS 01/21/23 01/21/23 History Fluticasone Propionate 110 Mcg 1 puff INHALATION RT-BID 01/21/23 01/21/23 History [Flovent 110 Mcg Inhaler] Rosuvastatin Calcium [Crestor] 40 mg PO HS 01/21/23 01/21/23 History amLODIPine [Norvasc] 5 mg PO HS 01/21/23 01/21/23 History methocarbamoL [Robaxin] 500 - 1,000 mg PO QID PRN 01/21/23 01/21/23 History polyethylene glycoL 3350 [Miralax] 17 gm PO DAILY PRN 01/21/23 01/21/23 History Allergies Allergy/AdvReac Type Severity Reaction Status Date / Time Penicillins Allergy Unknown Verified 01/21/23 13:46 Childhood Physical Exam Vitals: Vital Signs Temp Pulse Resp BP Pulse Ox 01/21/23 12:03 97.6 F 79 18 95/54 99 01/21/23 08:44 72 18 92/63 96 01/21/23 07:01 97.9 F 74 18 120/83 96 Intake and Output 01/20/23 01/21/23 01/21/23 22:59 06:59 14:59 Other: Weight 52.163 kg Results CBC & Chem 7: 01/21/23 07:26 01/21/23 07:26 Labs: Abnormal Lab Results - Last 24 Hours (Table) 01/21/23 01/21/23 Range/Units 07:26 07:26 WBC 22.0 H (3.8-10.6) k/uL Neutrophils # 18.1 H (1.3-7.7) k/uL BUN 21 H (7-17) mg/dL Glucose 147 H (74-99) mg/dL AST 47 H (14-36) U/L ALT 35 H (4-34) U/L
[2023-01-21] MEDS ORDERED: NA PHOS,M-B/NA PHOS,DI-BA 133 ML ENEMA RECTAL ONE (14:30)
[2023-01-21] MEDS: bisacodyL 5 MG TABLET.DR PO SCH ×2 (15:07→20:16)
[2023-01-21] MEDS: SODIUM CHLORIDE 0.9% 1,000 ML IV SCH (15:12)
[2023-01-21] MEDS: HYDROmorphone 1 MG/ML 1 ML SYRINGE IVP PRN (19:36)
[2023-01-21] MEDS: amLODIPine 5 MG TAB PO SCH (20:16)
[2023-01-21] MEDS: AMITRIPTYLINE HCL 25 MG TAB PO SCH (20:16)
[2023-01-21] MEDS: polyethylene glycoL 3350 17 GM POWD.PACK PO SCH (20:16)
[2023-01-21] MEDS: CHOLECALCIFEROL 25 MCG (1000 IU) TABLET PO SCH (20:16)
[2023-01-21] MEDS: ATORVASTATIN 80 MG TAB PO SCH (20:18)
[2023-01-21] MEDS: FLUTICASONE 110 MCG INHALER INHALATION SCH (20:25)
[2023-01-21] MEDS ORDERED: CALCIUM CARBONATE 500 MG CHEWABLE PO PRN (20:32)
[2023-01-21] MEDS ORDERED: CLOPIDOGREL 75 MG TAB PO SCH (21:00)
[2023-01-21] MEDS: HYDROmorphone 0.5 MG/0.5 ML SYRINGE IVP PRN (21:35)
[2023-01-22] MEDS: HYDROmorphone 1 MG/ML 1 ML SYRINGE IVP PRN ×5 (00:15→15:47)
[2023-01-22] MEDS ORDERED: ONDANSETRON 4 MG/2 ML VIAL IVP STA (00:19)
[2023-01-22] MEDS ORDERED: LORazepam 2 MG/ML INJ IV STA (00:46)
[2023-01-22] MEDS: ONDANSETRON 4 MG/2 ML VIAL IVP PRN ×3 (03:55→15:47)
[2023-01-22] MEDS: SODIUM CHLORIDE 0.9% 1,000 ML IV SCH ×2 (05:27→17:56)
[2023-01-22 09:06] LABS: HCT 41.6 % (37.2-46.3); HGB 13.3 g/dL (12.0-15.0); MCH 31.1 pg (27.0-32.0); MCV 97.2 FL (80.0-97.0); Mean Platelet Volume 10.5 FL (9.5-12.2); NRBC Per 100 WBC 0 X 10*3/uL (0.00-0.01); Platelet Count 267 X 10*3/uL (140-440); RBC 4.28 X 10*6/uL (4.10-5.20); RDW 13.9 % (11.5-14.5); WBC 37.31 X 10*3/uL (4.50-10.00)
[2023-01-22] MEDS: FLUTICASONE 110 MCG INHALER INHALATION SCH ×2 (09:19→20:52)
[2023-01-22] MEDS: bisacodyL 5 MG TABLET.DR PO SCH (09:25)
[2023-01-22] MEDS: PANTOPRAZOLE 40 MG/10 ML VIAL IV SCH (09:26)
[2023-01-22 09:43] LABS: ALT 48 U/L (8-44); AST 46 U/L (13-35); Albumin 3.8 g/dL (3.8-4.9); Albumin/Globulin Ratio 1.81 Ratio (1.60-3.17); Alkaline Phosphatase 100 U/L (41-126); BUN/Creat Ratio 40.38 Ratio (12.00-20.00); Blood Urea Nitrogen 32.3 mg/dL (9.0-27.0); Calcium 9.1 mg/dL (8.7-10.3); Carbon Dioxide 20.7 mmol/L (21.6-31.8); Chloride 100 mmol/L (96-109); Globulin 2.1 g/dL (1.6-3.3); Glucose 164 mg/dL (70-110); Sodium 135 mmol/L (135-145); Total Bilirubin 0.4 mg/dL (0.3-1.2); Total Protein 5.9 g/dL (6.2-8.2)
[2023-01-22 11:03] LABS: Basophils # (A) 0.08 X 10*3/uL (0.00-0.10); Basophils % (A) 0.2 %; Eosinophils # (A) 0 X 10*3/uL (0.04-0.35); Eosinophils % (A) 0 %; Lymphocytes # (A) 0.96 X 10*3/uL (0.90-5.00); Lymphocytes % (A) 2.6 %; Monocytes # (A) 1.82 X 10*3/uL (0.20-1.00); Monocytes % (A) 4.9 %; Neutrophils % (A) 90.3 %; RBC Morphology Normal (Normal)
[2023-01-22] MEDS: polyethylene glycoL 3350 17 GM POWD.PACK PO SCH (11:19)
--- NOTE | 2023-01-22 11:19 | P.GSCN ---
History of Present Illness Consult date: 01/22/23 History of present illness: CHIEF COMPLAINT: Abdominal pain HISTORY OF PRESENT ILLNESS: This is a 62-year-old female with a known history of constipation. She presents to the hospital with complaints of abdominal pain and abdominal distention. She reports the pain started 2 days ago. She has been having nausea and vomiting. The emesis is brownish in color. She reports having a very small BM yesterday. And since then has had no further bowel movements or flatus. And prior to that she had a small hard BM about 3 days ago. Patient reports her last colonoscopy was about 9 years ago. Colonoscopy had shown a colonic polyp. Patient reports a history of ulcerative colitis as a teenager. But is not on any medication for it. Surgical history includes a cholecystectomy. She also reports a history of hepatitis C that went away without treatment. Patient has history of coronary artery disease with heart catheterization and cardiac stents and on Plavix. Last dose of Plavix was last night. Patient had a computed tomography scan of abdomen and pelvis completed reported marked amount of stool burden throughout the colon extending to the sigmoid colon/rectal junction. Patient reports that her abdomen does remained painful and distended even after the small BM with enema. She also complains of blood in her urine with burning with urination. PAST MEDICAL HISTORY: See below PAST SURGICAL HISTORY: See below MEDICATIONS: See below ALLERGIES: See below SOCIAL HISTORY: No illicit drug use. REVIEW OF SYSTEMS: CONSTITUTIONAL: Denies fever or chills. HEENT: Denies blurred vision, vision changes, or eye pain. Denies hemoptysis CARDIOVASCULAR: Denies chest pain or pressure. RESPIRATORY: No shortness of breath. GASTROINTESTINAL: See HPI for pertinent findings HEMATOLOGIC: Denies bleeding disorders. GENITOURINARY: Denies any blood in urine or increased urinary frequency. SKIN: Denies pruitis. Denies rash. PHYSICAL EXAM: VITAL SIGNS: Reviewed GENERAL: Well-developed in no acute distress. HEENT: No sclera icterus. Extraocular movements grossly intact. Moist buccal mucosa. Head is atraumatic, normocephalic. No nasal drainage. ABDOMEN: Distended. Firm with diffuse tenderness NEUROLOGIC: Alert and oriented. Cranial nerves II through XII grossly intact. LABORATORY DATA: WBC 22 up to 37.31 hgb 13.3 plt 267 Na 135 K 4.0 Cr 0.8 Total bili 0.4 AST 46 ALT 48 alk phos 100 Lipase 228 IMAGING: Computed tomography scan abdomen and pelvis marked amount of stool burden throughout the colon extending to the sigmoid colon/rectal junction ASSESSMENT: 1. Abdominal distention and abdominal pain 2. Constipation 3. Hematuria and dysuria. Possible UTI 4. Mildly elevated LFTs. History of cholecystectomy 5. Leukocytosis PLAN: -Barium enema with a Gastrografin ordered for further evaluation of patient's abdominal distention -Make patient nothing by mouth -NG tube ordered for decompression -Agree with adding antibiotics. Discussed case with medicine service. -Check lactic acid level -Continue IV fluids -Further recommendations forthcoming per surgeon Physician Costume Design Teacher note has been reviewed by physician. Signing provider agrees with the documented findings, assessment, and plan of care. I have personally seen and examined the patient, reviewed the WRAPPER STEMMER HAND /PAs history, exam and MDM and agree with the assessment and plan as written. Based on total visit time, I have performed more than 50% of the visit. As above: We were consulted for abdominal pain and distention. The patient was on my list today. I was not notified of the consult personally even though it was placed yesterday. Patient with significant abdominal distention and abdominal discomfort. CAT scan shows fairly diffuse constipation and colonic wall thickening. No definite pneumatosis or perforation is seen. No definite transition point is identified. Patient has a history of previous colonoscopy 9 years ago. Questionable history of ulcerative colitis in her 20s. We ordered a Gastrografin enema to evaluate for obstruction. There were unable to pass contrast beyond the distal descending/proximal sigmoid colon region. There does appear to be a more dense portion of stool on CAT scan in that region however no definite mass lesion is seen. After the enema the patient has not been able to pass asymmetric significant volume of stool. She is still having pain. Nursing staff is placing a nasogastric tube at this time. Discussed with the patient and her family at the bedside that if no improvement will require laparotomy with possible bowel resection and possible ostomy. Discussed that her elevated white blood cell count raises the concern for possible bowel ischemia or microperforation. She would like to avoid surgery if possible. We will see how she responds after this recent enema over the next 1-2 hours. She was scheduled for surgery this afternoon however I am unable to get into an operating room for a couple of hours here. If the patient has marked improvement we will postpone otherwise recommend laparotomy. She is agreeable. Risks of bleeding, infection, scarring, numbness, hernia, abscess, possible need for ostomy and associated complications all reviewed. She understands and wishes to proceed. Past Medical History Past Medical History: Asthma, COPD, Fibromyalgia, GERD/Reflux, Hyperlipidemia, Hypertension, Liver Disease Additional Past Medical History / Comment(s): Hiatal hernia, past hx. colon polyps, IBS,ulcerative colitis, vitamin D deficiency, hepatitis C which patient states went away without treatment, glaucoma status post laser surgery, infectious mononucleosis, states has masses in bilateral lungs History of Any Multi-Drug Resistant Organisms: None Reported Past Surgical History: Cholecystectomy, Heart Catheterization With Stent, Tonsillectomy Additional Past Surgical History / Comment(s): D & C, laser surgery for glaucoma with stents in eyes, morenita cataract with lens implants Past Anesthesia/Blood Transfusion Reactions: No Reported Reaction Date of Last Stent Placement:: 10/23 Past Psychological History: Anxiety Smoking Status: Former smoker Past Alcohol Use History: None Reported Additional Past Alcohol Use History / Comment(s): Patient is a smoker one pack per day since she was 11 years old. Past Drug Use History: None Reported - Past Family History Father Additional Family Medical History / Comment(s): 1st in 40's. Father at age 73 from esophageal cancer. Mother Family Medical History: Cancer, Deep Vein Thrombosis (DVT), Myocardial Infarction ([place]) Additional Family Medical History / Comment(s): 1st in 40's. Mother at age 68 from lung cancer. Brother(s) Family Medical History: Cancer Additional Family Medical History / Comment(s): She has 2 brothers and one has history of bladder cancer and is a smoker. Sister(s) Additional Family Medical History / Comment(s): Patient has 1 sister with no major medical problems. Daughter(s) Additional Family Medical History / Comment(s): Patient has 1 daughter and 3 sons with no major medical problems. Patient has one niece that has been diagnosed with lupus. Medications and Allergies Home Medications Medication Instructions Recorded Confirmed Type Nitroglycerin Sl Tabs [Nitrostat] 0.4 mg SUBLINGUAL Q5M PRN #25 tab 10/19/17 01/21/23 Rx Albuterol Sulfate [Proair Hfa] 1 - 2 puff INHALATION RT-Q6H PRN 08/20/18 01/21/23 History Amitriptyline HCl [Elavil] 25 mg PO HS 01/21/23 01/21/23 History Aspirin/Acetaminophen/Caffeine 1 tab PO Q6H PRN 01/21/23 01/21/23 History [Excedrin Migraine Caplet] Cholecalciferol [Vitamin D3 (25 50 mcg PO HS 01/21/23 01/21/23 History Mcg = 1000 Iu)] Clopidogrel [Plavix] 75 mg PO HS 01/21/23 01/21/23 History Fluticasone Propionate 110 Mcg 1 puff INHALATION RT-BID 01/21/23 01/21/23 History [Flovent 110 Mcg Inhaler] Rosuvastatin Calcium [Crestor] 40 mg PO HS 01/21/23 01/21/23 History amLODIPine [Norvasc] 5 mg PO HS 01/21/23 01/21/23 History methocarbamoL [Robaxin] 500 - 1,000 mg PO QID PRN 01/21/23 01/21/23 History polyethylene glycoL 3350 [Miralax] 17 gm PO DAILY PRN 01/21/23 01/21/23 History Allergies Allergy/AdvReac Type Severity Reaction Status Date / Time Penicillins Allergy Unknown Verified 01/21/23 13:46 Childhood Surgical - Exam Vital Signs Temp Pulse Resp BP Pulse Ox 97.9 F 74 18 120/83 96 01/21/23 07:01 01/21/23 07:01 01/21/23 07:01 01/21/23 07:01 01/21/23 07:01 Results - Labs 01/22/23 06:14 01/22/23 06:14 Abnormal Lab Results - Last 24 Hours (Table) 01/21/23 01/22/23 Range/Units 13:58 06:14 WBC 37.31 H (4.50-10.00) X 10*3/uL MCV 97.2 H (80.0-97.0) FL Hyaline Casts 14 H (0-2) /lpf Urine Mucus Rare H (None) /hpf
[2023-01-22 11:55] LABS: Appearance,Urine Clear (Clear); Bacteria,Urine Rare /hpf; Bilirubin,Urine Negative (Negative); Blood,Urine Negative (Negative); Color,Urine Light Orange; Glucose,Urine (UA) Negative (Negative); Granular Casts,Urine 8 /lpf (0); Hyaline Casts,Urine 4 /lpf (0-2); Ketones,Urine Negative (Negative); Leukocyte Esterase,Urine Negative (Negative); Mucus,Urine Occasional /hpf; Nitrite,Urine Negative (Negative); PH, Urine 5.5 (5.0-8.0); Protein,Urine 1+ (Negative); RBC,Urine 1 /hpf (0-5); Specific Gravity,Urine 1.034 (1.001-1.035); WBC,Urine 2 /hpf (0-5)
[2023-01-22] MEDS: metroNIDAZOLE-NS PMX 500 MG in SALINE 1 100ML.BAG IVPB SCH ×2 (12:29→17:54)
[2023-01-22 15:35] LABS: Hepatitis B Core IgM Reactive (Non-Reactive)
[2023-01-22 16:00] LABS: Hepatitis A Antibody IgM Nonreactive; Hepatitis B Surface Antigen Nonreactive; Hepatitis C IgG Antibody Nonreactive
--- NOTE | 2023-01-22 16:02 | FL ---
EXAMINATION TYPE: FL barium enema DATE OF EXAM: 01/22/2023 COMPARISON: CT 01/21/2023 HISTORY: Fecal retention TECHNIQUE: Water-soluble contrast was utilized for retrograde lower GI enema. Real-time observation, fluoroscopy, and overhead radiographs were obtained. FINDINGS: Contrast was refluxed through the sigmoid colon to the descending colon sigmoid colon junct ion region. Patient was very uncomfortable at this point. The balloon came out. Balloon was reinserte d and additional contrast was administered. However, no contrast passes beyond this distal descending colon and sigmoid colon region. A discrete mass is not identified. Fecal debris appears to be throug h the redundant transverse colon and descending colon as well as beyond the sigmoid colon. An etiolog y for obstruction at this level is not identified beyond fecal impaction. Abundant fecal debris remai ns present within the ascending transverse and descending colon. Fluoroscopy time: 1 minute 2 seconds. Images: 12 IMPRESSION: 1. There is obstruction of retrograde contrast at the level of the descending colon sigmoid colon ju nction. Discrete etiology beyond fecal impaction is not identified. Preliminary results were discusse d with Dr. Dash by Dr. Oviedo.
--- NOTE | 2023-01-22 17:43 | XR ---
EXAM: XR chest 1V portable CLINICAL INDICATION:Female, 62 years old with history of NG Tube Placement; [facility] COMPARISON: 05/09/2016 chest x-ray and 01/21/2023 CT abdomen TECHNIQUE: Chest single view. FINDINGS: Lines/tubes/devices: There is jewelry about the neck. 2 tubes are seen extending craniocaudally over the mediastinum and upper abdomen. One of these is believed to be the internalized portion of the NG tube, which demonstrates a sidehole over the gastric cardia and the tip is not well seen but is belie amena to terminate over the gastric body. The other tube is believed to be the extrinsic portion of the NG tube. Cardiomediastinum: Cardiac silhouette appears normal in size. Partially calcified aorta. Mediastinum is not widened. Vasculature: No increased pulmonary vasculature. Lungs/pleura: Mildly increased interstitial markings bilaterally, likely chronic changes. No focal airspace consoli dation, sizable pleural effusion, or pneumothorax demonstrated. Bones/soft tissues: Bony thorax appears grossly intact as seen. Regional soft tissues appear unremarkable. Other: No definite free air is seen beneath the diaphragm. There is moderate gaseous distention of th e visualized colon. Clips in the right upper quadrant likely from cholecystectomy. IMPRESSION: NG tube is believed to terminate over the gastric body. No acute cardiopulmonary abnormality.
[2023-01-22] MEDS ORDERED: SODIUM CHLORIDE 0.9% 500 ML 500 ML IV ONE (18:17)
[2023-01-22] MEDS ORDERED: PROPOFOL 10 MG/ML 20 ML VIAL IV ONE (20:14)
[2023-01-22] MEDS ORDERED: DEXAMETHASONE SOD PHOSPHATE 4 MG/ML 1 ML VIAL ONE (20:14)
[2023-01-22] MEDS ORDERED: GLYCOPYRROLATE 0.2 MG/ML 2 ML VIAL ONE (20:14)
[2023-01-22] MEDS ORDERED: LIDOCAINE 1% INJ 10MG/ML (20 ML MDV) ONE (20:14)
[2023-01-22] MEDS ORDERED: PHENYLEPHRINE-0.9% NACL SYG 1,000 MCG/10 ML SYRINGE ONE (20:14)
[2023-01-22] MEDS ORDERED: ONDANSETRON 4 MG/2 ML VIAL ONE (20:14)
[2023-01-22] MEDS ORDERED: MIDAZOLAM 2 MG/2 ML VIAL ONE (20:14)
[2023-01-22] MEDS ORDERED: ROCURONIUM 10 MG/ML (5 ML VIAL) IV ONE (20:14)
[2023-01-22] MEDS ORDERED: NEOSTIGMINE 1 MG/ML 10 ML VIAL ONE (20:14)
[2023-01-22] MEDS ORDERED: SODIUM CHLORIDE 0.9% (PF) 10 ML VIAL ONE (20:14)
[2023-01-22] MEDS ORDERED: fentaNYL (PF) 50 MCG/ML 2 ML AMP ONE (20:14)
[2023-01-22] MEDS ORDERED: ROPIVACAINE 5 MG/ML 30 ML VIAL ONE (20:14)
[2023-01-22] MEDS ORDERED: ePHEDrine 50 MG/ML 1 ML VIAL ONE (20:14)
[2023-01-22] MEDS ORDERED: SUCCINYLCHOLINE CHLORIDE 200 MG/10 ML VIAL IV ONE (20:14)
[2023-01-22] MEDS ORDERED: SODIUM CHLORIDE 0.9% 50 ML with ceFAZolin 2,000 MG IV ONE ×2 (20:19)
[2023-01-22] MEDS ORDERED: SODIUM CHLORIDE 0.9% 1,000 ML IV ONE (20:19)
[2023-01-22] MEDS ORDERED: LACTATED RINGERS 1,000 ML IV ONE (21:00)
--- NOTE | 2023-01-22 21:32 | P.ANPRN ---
Procedure Note - Anesthesia - Nerve Block Performed Bilateral Rectus Abdominis Single Time Out Performed: Yes (2007) Date of Procedure: 01/22/23 Procedure Start Time: 20:09 Procedure Stop Time: 20:12 Location of Patient: Phase I Indication: Acute Post-Operative Pain, Requested by Surgeon Specifically requested for management of pain by DrLissette: Sacha Copeland Sedation Type: Sedate with meaningful contact maintained Preparation: Sterile Prep Position: Supine Catheter: None Needle Types: Pajunk Needle Gauge: 21 Ultrasound used to visualize needle placement: Yes Ultrasound used to observe medication spread: Yes Injectate: 0.5% Ropivacaine (see comment for volume) (15cc +10cc nacl pf each side) Blood Aspirated: No Pain Paresthesia on Injection Noted: No Resistance on Injection: Normal Image Stored and Saved: Yes Events: Uneventful and Well Tolerated
[2023-01-22] MEDS ORDERED: HYDROmorphone 0.5 MG/0.5 ML SYRINGE IVP PRN (21:56)
--- NOTE | 2023-01-22 22:04 | P.OP ---
Date of Procedure: 01/22/23 Procedure(s) Performed: PREOPERATIVE DIAGNOSIS: Colonic obstruction POSTOPERATIVE DIAGNOSIS: Colonic obstruction secondary to fecal stasis PROCEDURE: Exploratory laparotomy, fecal disimpaction, appendectomy SURGEON: Min EBL: 25 mL ANESTHESIA: Gen. COMPLICATIONS: None OPERATIVE PROCEDURE: Patient placed on the operative table in supine position. Patient was placed under general anesthesia. The patient had some liquid stool in her brief. No solid stool was noted. A Caballero catheter was placed. The ab domen was then prepped and draped sterilely. A midline incision was created. Entrance into the perineal cavity occurred. The patient's colon was markedly distended throughout primarily however in the cecum and transverse colon. The transverse colon was eviscerated allowing us to visualize the structures better. Small amount of serous fluid within the cavity was noted and evacuated. As the distal descending proximal sigmoid colon was inspected the area where we suspected the obstruction to be had a firm piece of stool that was present there. Gently I was able to break this into 2 smaller pieces which was then able to be advanced into the sigmoid and subsequently the rectum. As soon as I did that we were able to milk some additional liquid stool through the anus. At this location of obstruction I was able to appreciate a fibropurulent exudate over the serosa of the colon in that area. As this was gently removed the serosa appeared healthy and pink. There was no evidence of perforation or ischemic changes. There was still marked distention of the transverse colon and cecum and I would estimate at least 1/2-2/3 of the contents here were air. The patient had 2-3 appendicoliths in the appendix. The appendix was opened and I was able to place a pull tip suction in the cecum. We then milked the air all the way from the descending colon around to our suction device decreasing the colonic distention by about two thirds. The base of the appendix was then divided using a linear 75 blue load stapler. The staple line was imbricated using interrupted 3-0 GI silk sutures. I then placed a 36-Bulgarian chest tube in the anus passing to the proximal rectum. I then milked the bowel contents distally from the cecum across the transverse down the descending colon and we were able to evacuate a large volume of liquid and solid stool. At the completion of the procedure I removed additional solid stool from the rectal vault manually. The colon was then again inspected from cecum to proximal rectum. There was no evidence of any ischemic changes or pneumatosis. There was no signs of perforation. The abdomen was copiously irrigated with saline. The fascia was reapproximated using 3 separate double-stranded #1 PDS sutures. The subcutaneous tissues were closed using 3-0 Vicryl sutures. The skin was closed using aristides. Sterile dressings and abdominal binder was applied. Chest tube was removed and the manual disimpaction took place. DISPOSITION: Stable to recovery room
--- NOTE | 2023-01-22 23:25 | P.CONS ---
History of Present Illness - Reason for Consult Consult date: 01/22/23 - History of Present Illness Patient is a 62-year-old female with a past medical history significant for COPD asthma fibromyalgia hypertension hyperlipidemia patient presenting to the ER yesterday morning for evaluation of abdominal pain patient symptom has been going on for few days patient also complaining of constipation with last bowel movement about 3 weeks ago patient did have worsening of abdominal pain the day of presentation to the hospital to be mostly generalized and severe in intensity without any radiation and started throwing up patient did have some chills but denies high-grade fever with the symptoms the patient was evaluated on presentation to the hospital the patient was afebrile and no fever has been recorded subsequently patient was tachycardic but not hypotensive or hypoxic patient did have a white count of 22,000 that is up to 37,000 today creatinine was normal liver enzymes mildly elevated amylase lipase was normal urine has been negative patient did have a CT of abdominal pelvis marked amount of stool burden throughout the colon did not mention any colitis or abscess patient was started on Rocephin with worsening of the white count infectious disease was consulted for further management of antibiotic therapy patient to have penicillin allergy as a child Past Medical History Past Medical History: Asthma, COPD, Fibromyalgia, GERD/Reflux, Hyperlipidemia, Hypertension, Liver Disease Additional Past Medical History / Comment(s): Hiatal hernia, past hx. colon polyps, IBS,ulcerative colitis, vitamin D deficiency, hepatitis C which patient states went away without treatment, glaucoma status post laser surgery, infectious mononucleosis, states has masses in bilateral lungs History of Any Multi-Drug Resistant Organisms: None Reported Past Surgical History: Cholecystectomy, Heart Catheterization With Stent, Tonsillectomy Additional Past Surgical History / Comment(s): D & C, laser surgery for glaucoma with stents in eyes, morenita cataract with lens implants Past Anesthesia/Blood Transfusion Reactions: No Reported Reaction Date of Last Stent Placement:: 10/23 Past Psychological History: Anxiety Smoking Status: Former smoker Past Alcohol Use History: None Reported Additional Past Alcohol Use History / Comment(s): Patient is a smoker one pack per day since she was 11 years old. Past Drug Use History: None Reported - Past Family History Father Additional Family Medical History / Comment(s): 1st in 40's. Father at age 73 from esophageal cancer. Mother Family Medical History: Cancer, Deep Vein Thrombosis (DVT), Myocardial Infarction ([place]) Additional Family Medical History / Comment(s): 1st in 40's. Mother at age 68 from lung cancer. Brother(s) Family Medical History: Cancer Additional Family Medical History / Comment(s): She has 2 brothers and one has history of bladder cancer and is a smoker. Sister(s) Additional Family Medical History / Comment(s): Patient has 1 sister with no major medical problems. Daughter(s) Additional Family Medical History / Comment(s): Patient has 1 daughter and 3 sons with no major medical problems. Patient has one niece that has been diagnosed with lupus. Medications and Allergies Home Medications Medication Instructions Recorded Confirmed Type Nitroglycerin Sl Tabs [Nitrostat] 0.4 mg SUBLINGUAL Q5M PRN #25 tab 10/19/17 01/21/23 Rx Albuterol Sulfate [Proair Hfa] 1 - 2 puff INHALATION RT-Q6H PRN 08/20/18 01/21/23 History Amitriptyline HCl [Elavil] 25 mg PO HS 01/21/23 01/21/23 History Aspirin/Acetaminophen/Caffeine 1 tab PO Q6H PRN 01/21/23 01/21/23 History [Excedrin Migraine Caplet] Cholecalciferol [Vitamin D3 (25 50 mcg PO HS 01/21/23 01/21/23 History Mcg = 1000 Iu)] Clopidogrel [Plavix] 75 mg PO HS 01/21/23 01/21/23 History Fluticasone Propionate 110 Mcg 1 puff INHALATION RT-BID 01/21/23 01/21/23 History [Flovent 110 Mcg Inhaler] Rosuvastatin Calcium [Crestor] 40 mg PO HS 01/21/23 01/21/23 History amLODIPine [Norvasc] 5 mg PO HS 01/21/23 01/21/23 History methocarbamoL [Robaxin] 500 - 1,000 mg PO QID PRN 01/21/23 01/21/23 History polyethylene glycoL 3350 [Miralax] 17 gm PO DAILY PRN 01/21/23 01/21/23 History Allergies Allergy/AdvReac Type Severity Reaction Status Date / Time Penicillins Allergy Unknown Verified 01/21/23 13:46 Childhood Physical Exam Vitals: Vital Signs Temp Pulse Pulse Resp BP BP Pulse Ox 01/22/23 07:00 98.1 F 103 H 16 117/77 93 L 01/22/23 02:00 97.8 F 100 16 111/77 93 L 01/21/23 20:32 92 01/21/23 20:21 96 01/21/23 20:00 98.1 F 116 H 16 105/64 93 L 01/21/23 16:44 97.6 F 102 H 22 99/65 94 L 01/21/23 15:14 98 18 107/72 95 01/21/23 12:03 97.6 F 79 18 95/54 99 Intake and Output 01/21/23 01/22/23 01/22/23 22:59 06:59 14:59 Other: Voiding Method Toilet Toilet # Voids 1 1 # Bowel Movements 1 Weight 52.163 kg Results CBC & Chem 7: 01/25/23 08:11 01/24/23 06:41 Labs: Abnormal Lab Results - Last 24 Hours (Table) 01/21/23 01/22/23 01/22/23 Range/Units 13:58 06:14 06:14 WBC 37.31 H (4.50-10.00) X 10*3/uL MCV 97.2 H (80.0-97.0) FL Carbon Dioxide 20.7 L (21.6-31.8) mmol/L Anion Gap 14.30 H (4.00-12.00) mmol/L BUN 32.3 H (9.0-27.0) mg/dL BUN/Creatinine Ratio 40.38 H (12.00-20.00) Ratio Glucose 164 H (70-110) mg/dL AST 46 H (13-35) U/L ALT 48 H (8-44) U/L Total Protein 5.9 L (6.2-8.2) g/dL Hyaline Casts 14 H (0-2) /lpf Urine Mucus Rare H (None) /hpf Assessment and Plan Plan: 1patient with presentation to hospital abdominal pain and constipation in this patient who did not have any bowel movement for 3 weeks patient noticed to have a significant elevated white count with mild distention of the colon on the CT more likely related to the fecal stasis and likely need to cover for enteric gram-negative both aerobes and anaerobes 2-penicillin allergy that will limit the number of antibiotics safe to use 3-continue with Rocephin 2 g daily will add Flagyl 500 every 8 hours 4-await surgery evaluation and possible plan for CT pelvis with rectal contrast as per discussion with the nursing staff We will follow on clinical condition and cultures to further adjust medication if needed Thank you for this consultation we will follow the patient along with you Dictation was produced using [employer] dictation software. please excuse any grammatical, word or spelling errors.
[2023-01-23] MEDS: HYDROmorphone 1 MG/ML 1 ML SYRINGE IVP PRN ×4 (00:01→23:50)
[2023-01-23] MEDS: SODIUM CHLORIDE 0.9% 1,000 ML IV SCH ×3 (00:01→20:19)
[2023-01-23] MEDS: polyethylene glycoL 3350 17 GM POWD.PACK PO SCH ×3 (00:02→20:17)
[2023-01-23] MEDS: CHOLECALCIFEROL 25 MCG (1000 IU) TABLET PO SCH ×2 (00:02→20:19)
[2023-01-23] MEDS: AMITRIPTYLINE HCL 25 MG TAB PO SCH ×2 (00:02→20:19)
[2023-01-23] MEDS: amLODIPine 5 MG TAB PO SCH ×2 (00:02→20:19)
[2023-01-23] MEDS: bisacodyL 5 MG TABLET.DR PO SCH ×3 (00:02→20:19)
[2023-01-23] MEDS: ACETAMINOPHEN IV (For NPO) 1,000 MG in EMPTY BAG 1 BAG IVPB SCH ×5 (00:22→23:18)
[2023-01-23] MEDS: metroNIDAZOLE-NS PMX 500 MG in SALINE 1 100ML.BAG IVPB SCH ×4 (00:26→23:17)
[2023-01-23] MEDS: KETOROLAC 15 MG/ML 1 ML VIAL IVP SCH ×5 (00:30→23:17)
[2023-01-23] MEDS: METOCLOPRAMIDE 5 MG/ML 2 ML VIAL IVP PRN (00:34)
[2023-01-23] MEDS: HEPARIN SODIUM,PORCINE 5,000 UNIT/ML 1 ML VIAL SQ SCH ×4 (00:34→23:17)
[2023-01-23] MEDS: ATORVASTATIN 80 MG TAB PO SCH (02:01)
[2023-01-23] MEDS: HYDROmorphone 0.5 MG/0.5 ML SYRINGE IVP PRN ×2 (03:48→08:14)
[2023-01-23 06:39] LABS: Basophils % (A) 0 %; Eosinophils % (A) 0 %; HCT 32.3 % (34.0-46.0); HGB 10.9 gm/dL (11.4-16.0); Lymphocytes # (A) 0.4 k/uL (1.0-4.8); Lymphocytes % (A) 2 %; MCH 32.5 pg (25.0-35.0); MCHC 33.7 g/dL (31.0-37.0); MCV 96.6 fL (80.0-100.0); Mean Platelet Volume 8.4; Monocytes # (A) 0.7 k/uL (0-1.0); Monocytes % (A) 3 %; Neutrophils # (A) 18.4 k/uL (1.3-7.7); Neutrophils % (A) 94 %; Platelet Count 204 k/uL (150-450); RBC 3.34 m/uL (3.80-5.40); RDW 13.3 % (11.5-15.5); WBC 19.5 k/uL (3.8-10.6)
[2023-01-23] MEDS: BENZOCAINE SPRAY 1 CAN MUCOUS MEM PRN ×2 (06:45→12:26)
[2023-01-23 06:49] LABS: African American GFR (CKD) >90 (>60 ml/min/1.73 sqM); Anion Gap 8 mmol/L; Blood Urea Nitrogen 24 mg/dL (7-17); Calcium 7.6 mg/dL (8.4-10.2); Carbon Dioxide 23 mmol/L (22-30); Chloride 106 mmol/L (98-107); Glucose 121 mg/dL (74-99); Non-African American GFR(CKD) 88 (>60 ml/min/1.73 sqM); Potassium 3.8 mmol/L (3.5-5.1); Sodium 137 mmol/L (137-145)
[2023-01-23] MEDS: PANTOPRAZOLE 40 MG/10 ML VIAL IV SCH (08:02)
[2023-01-23] MEDS: FLUTICASONE 110 MCG INHALER INHALATION SCH ×2 (09:58→21:18)
--- NOTE | 2023-01-23 10:42 | P.PN ---
Subjective Progress Note Date: 01/23/23 CHIEF COMPLAINT: Colonic obstruction HISTORY OF PRESENT ILLNESS: Patient is postop day #1 status post exploratory laparotomy, fecal disimpaction and appendectomy. Patient reports that she is feeling better than yesterday prior to surgery. She reports decreased abdominal pain. Denies any nausea. She denies any flatus. Afebrile. Tachycardia improved. WBC 37.31 down to 19.5 Hgb down from 13-10.9 platelets 204 sodium 137 potassium 3.8 creatinine 0.74 lactic acid 3.2 down to 1.9 PHYSICAL EXAM: VITAL SIGNS: Reviewed. GENERAL: Well-developed in no acute distress. ABDOMEN: Soft. less distended. Mild tenderness with palpation at incision site. Incision dressing clean dry and intact. NEUROLOGIC: Alert and oriented. Cranial nerves II through XII grossly intact. ASSESSMENT: 1. Colonic obstruction secondary to fecal stasis PLAN: -Continue NG tube for decompression -Keep patient nothing by mouth expressed some popsicles -Encouraged patient to increase activity level -Continue antibiotics -Continue IV fluids -Continue pain management -DVT prophylaxis subcu heparin Physician Dental Laboratory Supervisor note has been reviewed by physician. Signing provider agrees with the documented findings, assessment, and plan of care. I have personally seen and examined the patient, reviewed the TRAIN EXAMINER /PAs history, exam and MDM and agree with the assessment and plan as written. Based on total visit time, I have performed more than 50% of the visit. As above: Patient feels better than she did previously. White blood cell count improved. Abdomen mildly distended. Nasogastric tube without significant outp ut. Started low volume GoLYTELY earlier today. Continue ambulation. Continue Reglan. We'll follow closely. Objective - Vital Signs Vital signs: Vital Signs Temp 98.3 F 01/23/23 07:55 Pulse 99 01/23/23 07:55 Resp 16 01/23/23 07:55 BP 104/73 01/23/23 07:55 Pulse Ox 95 01/23/23 07:55 FiO2 Intake & Output 01/22/23 01/23/23 01/23/23 18:59 06:59 18:59 Intake Total 1950 Output Total 400 1395 Balance -400 555 Intake: IV 1950 Output: Gastric Drainage 100 Urine 400 1270 Straight 400 Estimated Blood Loss 25 Other: Voiding Method Toilet Indwelling Catheter Indwelling Catheter # Voids 2 - Labs CBC & Chem 7: 01/23/23 05:58 01/23/23 05:58 Labs: Abnormal Lab Results - Last 24 Hours (Table) 01/22/23 01/22/23 01/22/23 Range/Units 06:14 06:14 10:50 WBC (3.8-10.6) k/uL RBC (3.80-5.40) m/uL Hgb (11.4-16.0) gm/dL Hct (34.0-46.0) % Immature Gran # 0.75 H (0.00-0.04) X 10*3/uL Neutrophils # 33.70 H (1.80-7.70) X 10*3/uL Lymphocytes # (1.0-4.8) k/uL Monocytes # 1.82 H (0.20-1.00) X 10*3/uL Eosinophils # 0 L (0.04-0.35) X 10*3/uL BUN (7-17) mg/dL Glucose (74-99) mg/dL Plasma Lactic Acid Nicholas (0.7-2.0) mmol/L Calcium (8.4-10.2) mg/dL Urine Protein 1+ H (Negative) Urine Bacteria Rare H (None) /hpf Hyaline Casts 4 H (0-2) /lpf Urine Mucus Occasional H (None) /hpf Hep B Core IgM Ab Reactive A (Non-Reactive) 01/22/23 01/23/23 01/23/23 Range/Units 17:14 05:58 05:58 WBC 19.5 H (3.8-10.6) k/uL RBC 3.34 L (3.80-5.40) m/uL Hgb 10.9 L (11.4-16.0) gm/dL Hct 32.3 L (34.0-46.0) % Immature Gran # (0.00-0.04) X 10*3/uL Neutrophils # 18.4 H (1.80-7.70) X 10*3/uL Lymphocytes # 0.4 L (1.0-4.8) k/uL Monocytes # (0.20-1.00) X 10*3/uL Eosinophils # (0.04-0.35) X 10*3/uL BUN 24 H (7-17) mg/dL Glucose 121 H (74-99) mg/dL Plasma Lactic Acid Nicholas 3.2 H* (0.7-2.0) mmol/L Calcium 7.6 L (8.4-10.2) mg/dL Urine Protein (Negative) Urine Bacteria (None) /hpf Hyaline Casts (0-2) /lpf Urine Mucus (None) /hpf Hep B Core IgM Ab (Non-Reactive)
[2023-01-23] MEDS ORDERED: PEG 3350 (236 GM/BTL) + LYTES 4,000 ML BOTTLE PO ONE (14:00)
[2023-01-24] MEDS: HYDROmorphone 1 MG/ML 1 ML SYRINGE IVP PRN ×3 (03:32→22:18)
[2023-01-24] MEDS: KETOROLAC 15 MG/ML 1 ML VIAL IVP SCH ×3 (06:39→17:49)
[2023-01-24] MEDS: ACETAMINOPHEN IV (For NPO) 1,000 MG in EMPTY BAG 1 BAG IVPB SCH ×3 (06:39→17:50)
[2023-01-24] MEDS: SODIUM CHLORIDE 0.9% 1,000 ML IV SCH ×3 (06:40→22:13)
[2023-01-24 07:09] LABS: Basophils % (A) 0 %; Eosinophils # (A) 0.1 k/uL (0-0.7); Eosinophils % (A) 0 %; HCT 30.8 % (34.0-46.0); HGB 10.2 gm/dL (11.4-16.0); Lymphocytes # (A) 1.1 k/uL (1.0-4.8); Lymphocytes % (A) 8 %; MCV 96.9 fL (80.0-100.0); Mean Platelet Volume 8.3; Monocytes # (A) 0.6 k/uL (0-1.0); Monocytes % (A) 4 %; Neutrophils # (A) 12.8 k/uL (1.3-7.7); Neutrophils % (A) 87 %; Platelet Count 181 k/uL (150-450); RBC 3.18 m/uL (3.80-5.40); RDW 13.4 % (11.5-15.5); WBC 14.7 k/uL (3.8-10.6)
[2023-01-24] MEDS: HEPARIN SODIUM,PORCINE 5,000 UNIT/ML 1 ML VIAL SQ SCH ×2 (07:50→15:01)
[2023-01-24] MEDS: polyethylene glycoL 3350 17 GM POWD.PACK PO SCH ×4 (07:50→22:13)
[2023-01-24] MEDS: metroNIDAZOLE-NS PMX 500 MG in SALINE 1 100ML.BAG IVPB SCH ×2 (07:50→15:01)
[2023-01-24] MEDS: PANTOPRAZOLE 40 MG/10 ML VIAL IV SCH (07:50)
[2023-01-24] MEDS: bisacodyL 5 MG TABLET.DR PO SCH ×2 (07:50→22:13)
[2023-01-24 07:56] LABS: African American GFR (CKD) >90 (>60 ml/min/1.73 sqM); Anion Gap 7 mmol/L; Blood Urea Nitrogen 17 mg/dL (7-17); Calcium 7.7 mg/dL (8.4-10.2); Carbon Dioxide 23 mmol/L (22-30); Chloride 109 mmol/L (98-107); Glucose 78 mg/dL (74-99); Non-African American GFR(CKD) >90 (>60 ml/min/1.73 sqM); Potassium 3.9 mmol/L (3.5-5.1); Sodium 139 mmol/L (137-145)
[2023-01-24] MEDS: FLUTICASONE 110 MCG INHALER INHALATION SCH ×2 (09:43→21:27)
--- NOTE | 2023-01-24 11:04 | P.PN ---
Subjective Progress Note Date: 01/24/23 CHIEF COMPLAINT: Colonic obstruction HISTORY OF PRESENT ILLNESS: Patient is postop day #2 status post exploratory laparotomy, fecal disimpaction and appendectomy. Patient reports her pain continues to improve. She denies any nausea. There is 200ml brownish output through the NG tube. Initially patient had had no flatus or bowel movement. Later this morning she did have a bowel movement and the nurse does report that the abdomen is softer. She has been receiving the GoLYTELY every 6 hours. Afeb rile. Heart rate 105. WBC is down from 19.5-14.7 PHYSICAL EXAM: VITAL SIGNS: Reviewed. GENERAL: Well-developed in no acute distress. ABDOMEN: Distended but softer. Mild tenderness with palpation to the right of the incision site. incision dressing with small amount of blood saturation at the top of the dressing. NEUROLOGIC: Alert and oriented. Cranial nerves II through XII grossly intact. ASSESSMENT: 1. Colonic obstruction secondary to fecal stasis PLAN: -Continue NG tube for decompression -Continue GoLYTELY 6 ounces every 6 hours -Keep patient nothing by mouth except ice chips and popsicles -Encouraged patient to increase activity level -Continue antibiotics -Continue IV fluids -Continue pain management -DVT prophylaxis subcu heparin Physician Travel Writer note has been reviewed by physician. Signing provider agrees with the documented findings, assessment, and plan of care. I have personally seen and examined the patient, reviewed the ESCALATOR CONSTRUCTOR /PAs history, exam and MDM and agree with the assessment and plan as written. Based on total visit time, I have performed more than 50% of the visit. As above: Patient doing well today. She had a bowel movement. We'll remove nasogastric tube. May start liquids. Objective - Vital Signs Vital signs: Vital Signs Temp 98.1 F 01/24/23 07:47 Pulse 105 H 01/24/23 07:47 Resp 18 01/24/23 07:47 BP 131/74 01/24/23 07:47 Pulse Ox 95 01/24/23 07:47 FiO2 Intake & Output 01/23/23 01/24/23 01/24/23 18:59 06:59 18:59 Output Total 500 400 900 Balance -500 -400 -900 Output: Gastric Drainage 200 Urine 500 400 700 Other: Voiding Method Indwelling Catheter Toilet Toilet - Labs CBC & Chem 7: 01/24/23 06:41 01/24/23 06:41 Labs: Abnormal Lab Results - Last 24 Hours (Table) 01/24/23 01/24/23 Range/Units 06:41 06:41 WBC 14.7 H (3.8-10.6) k/uL RBC 3.18 L (3.80-5.40) m/uL Hgb 10.2 L (11.4-16.0) gm/dL Hct 30.8 L (34.0-46.0) % Neutrophils # 12.8 H (1.3-7.7) k/uL Chloride 109 H (98-107) mmol/L Calcium 7.7 L (8.4-10.2) mg/dL Microbiology - Last 24 Hours (Table) 01/22/23 17:21 Blood Culture - Preliminary Blood
[2023-01-24] MEDS: amLODIPine 5 MG TAB PO SCH (22:12)
[2023-01-24] MEDS: AMITRIPTYLINE HCL 25 MG TAB PO SCH (22:12)
[2023-01-24] MEDS: CHOLECALCIFEROL 25 MCG (1000 IU) TABLET PO SCH (22:13)
--- NOTE | 2023-01-24 23:56 | P.PN ---
Subjective Progress Note Date: 01/22/23 History of present illness; patient is 62-year-old lady with past medical history significant for coronary disease, hypertension, hyperlipidemia, irritable bowel syndrome who presented to the ER because of abdominal pain. Patient stated that she has history of constipation and IBS and normally has baseline abdominal pain. Patient stated that she has not had a bowel movement for the last 2 weeks. This morning patient woke up this with severe abdominal pain located in the left lower quadrant, pain was sharp, nonradiating, not associated with any nausea or vomiting. There was no complaint of fever or chills. No complain of any blood in the stools. No complaint of chest pain or shortness of breath. Because of severe abdominal pain, patient came to the ER Initial lab work done in the ER showed WBC 22, platelet count 267, hemoglobin 13.8 sodium 137, potassium 4.4, BUNs 21, creatinine 0.69, glucose 147, AST 47, ALT 35, amylase 55, lipase 228 CT abdominal and pelvis done showed marked amount of stool burden throughout the colon extending to the sigmoid colon Patient admitted to internal medicine service 01/22/2023 Patient is currently lying in the bed. Awake alert and oriented. Still having abdominal pain and no bowel movement. Patient was also elevated WBC count 37.3 BUN 32.3 and creatinine 0.8 and mild transaminitis. Barium in the above was ordered as above General surgery recommendations. Showed there is obstruction of retrograde contrast at the level of the descending colon sigmoid colon junction discrete etiology beyond fecal impaction is not identified.. General surgery is planning for exploratory laparotomy.Patient was started on antibiotics empirically with ceftriaxone and also Flagyl was added. As per ID recommendations. Other laboratory data reviewed. Current medications reviewed REVIEW OF SYSTEMS: CONSTITUTIONAL: No fever, no malaise, no fatigue. HEENT: No recent visual problems or hearing problems. Denied any sore throat. CARDIOVASCULAR: No chest pain, orthopnea, PND, no palpitations, no syncope. PULMONARY: No shortness of breath, no cough, no hemoptysis. GASTROINTESTINAL: As mentioned in HPI NEUROLOGICAL: No headaches, no weakness, no numbness. HEMATOLOGICAL: Denies any bleeding or petechiae. GENITOURINARY: Denies any burning micturition, frequency, or urgency. MUSCULOSKELETAL/RHEUMATOLOGICAL: Denies any joint pain, swelling, or any muscle pain. ENDOCRINE: Denies any polyuria or polydipsia. The rest of the 14-point review of systems is negative. PHYSICAL EXAMINATION: GENERAL: The patient is alert and oriented x3, not in any acute distress. Well developed, well nourished. HEENT: Pupils are round and equally reacting to light. EOMI. No scleral icterus. No conjunctival pallor. Normocephalic, atraumatic. No pharyngeal erythema. No thyromegaly. CARDIOVASCULAR: S1 and S2 present. No murmurs, rubs, or gallops. PULMONARY: Chest is clear to auscultation, no wheezing or crackles. ABDOMEN: Distended, tenderness left lower quadrant ,normoactive bowel sounds. No palpable organomegaly. MUSCULOSKELETAL: No joint swelling or deformity. EXTREMITIES: No cyanosis, clubbing, or pedal edema. NEUROLOGICAL: Gross neurological examination did not reveal any focal deficits. SKIN: No rashes. Assessment and plan Abdominal pain Fecal impaction Severe constipation History of coronary artery disease Hypertension Hyperlipidemia History of irritable bowel syndrome Monitor vital signs Monitor CBC Monitor CMP Continue IV fluids Continue pain management continue antiemetics Aggressive bowel regimen Results of CT abdominal and pelvis noted. Gen. surgery is planning for expolatory lap Resume home Labs and medication were reviewed.. Continue with symptomatic treatment. Resume home medication. Monitor labs and vitals. DVT and GI prophylaxis. Dictation was produced using [employer] dictation software. please excuse any gr ammatical, word or spelling errors. Objective - Vital Signs Vital signs: Vital Signs Temp 99.0 F 01/22/23 21:57 Pulse 97 01/22/23 22:47 Resp 16 01/22/23 22:47 BP 109/70 01/22/23 22:47 Pulse Ox 94 L 01/22/23 22:47 FiO2 Intake & Output 01/22/23 01/22/23 01/23/23 06:59 18:59 06:59 Intake Total 1800 Output Total 400 495 Balance -400 1305 Intake: IV 1800 Output: Gastric Drainage 100 Urine 400 370 Straight 400 Estimated Blood Loss 25 Other: Voiding Method Toilet Toilet # Voids 1 2 # Bowel Movements 1 - Labs CBC & Chem 7: 01/24/23 06:41 01/24/23 06:41 Labs: Abnormal Lab Results - Last 24 Hours (Table) 01/22/23 01/22/23 01/22/23 Range/Units 06:14 06:14 06:14 WBC 37.31 H (4.50-10.00) X 10*3/uL MCV 97.2 H (80.0-97.0) FL Immature Gran # 0.75 H (0.00-0.04) X 10*3/uL Neutrophils # 33.70 H (1.80-7.70) X 10*3/uL Monocytes # 1.82 H (0.20-1.00) X 10*3/uL Eosinophils # 0 L (0.04-0.35) X 10*3/uL Carbon Dioxide 20.7 L (21.6-31.8) mmol/L Anion Gap 14.30 H (4.00-12.00) mmol/L BUN 32.3 H (9.0-27.0) mg/dL BUN/Creatinine Ratio 40.38 H (12.00-20.00) Ratio Glucose 164 H (70-110) mg/dL Plasma Lactic Acid Nicholas (0.7-2.0) mmol/L AST 46 H (13-35) U/L ALT 48 H (8-44) U/L Total Protein 5.9 L (6.2-8.2) g/dL Urine Protein (Negative) Urine Bacteria (None) /hpf Hyaline Casts (0-2) /lpf Urine Mucus (None) /hpf Hep B Core IgM Ab Reactive A (Non-Reactive) 01/22/23 01/22/23 Range/Units 10:50 17:14 WBC (4.50-10.00) X 10*3/uL MCV (80.0-97.0) FL Immature Gran # (0.00-0.04) X 10*3/uL Neutrophils # (1.80-7.70) X 10*3/uL Monocytes # (0.20-1.00) X 10*3/uL Eosinophils # (0.04-0.35) X 10*3/uL Carbon Dioxide (21.6-31.8) mmol/L Anion Gap (4.00-12.00) mmol/L BUN (9.0-27.0) mg/dL BUN/Creatinine Ratio (12.00-20.00) Ratio Glucose (70-110) mg/dL Plasma Lactic Acid Nicholas 3.2 H* (0.7-2.0) mmol/L AST (13-35) U/L ALT (8-44) U/L Total Protein (6.2-8.2) g/dL Urine Protein 1+ H (Negative) Urine Bacteria Rare H (None) /hpf Hyaline Casts 4 H (0-2) /lpf Urine Mucus Occasional H (None) /hpf Hep B Core IgM Ab (Non-Reactive) Assessment and Plan Time with Patient: Greater than 30
--- NOTE | 2023-01-25 | P.PN ---
Subjective Progress Note Date: 01/23/23 History of present illness; patient is 62-year-old lady with past medical history significant for coronary disease, hypertension, hyperlipidemia, irritable bowel syndrome who presented to the ER because of abdominal pain. Patient stated that she has history of constipation and IBS and normally has baseline abdominal pain. Patient stated that she has not had a bowel movement for the last 2 weeks. This morning patient woke up this with severe abdominal pain located in the left lower quadrant, pain was sharp, nonradiating, not associated with any nausea or vomiting. There was no complaint of fever or chills. No complain of any blood in the stools. No complaint of chest pain or shortness of breath. Because of severe abdominal pain, patient came to the ER Initial lab work done in the ER showed WBC 22, platelet count 267, hemoglobin 13.8 sodium 137, potassium 4.4, BUNs 21, creatinine 0.69, glucose 147, AST 47, ALT 35, amylase 55, lipase 228 CT abdominal and pelvis done showed marked amount of stool burden throughout the colon extending to the sigmoid colon Patient admitted to internal medicine service 01/22/2023 Patient is currently lying in the bed. Awake alert and oriented. Still having abdominal pain and no bowel movement. Patient was also elevated WBC count 37.3 BUN 32.3 and creatinine 0.8 and mild transaminitis. Barium in the above was ordered as above General surgery recommendations. Showed there is obstruction of retrograde contrast at the level of the descending colon sigmoid colon junction discrete etiology beyond fecal impaction is not identified.. General surgery is planning for exploratory laparotomy.Patient was started on antibiotics empirically with ceftriaxone and also Flagyl was added. As per ID recommendations. Other laboratory data reviewed. 01/23/2023 Patient is status post exploratory laparotomy, fecal impaction and appendectomy. Postoperative day 1 Patient states that she feels better today. Abdominal pain is improved. No nausea or vomiting. No involvement of passing flatus yet. Patient is being continued on IV hypericin antibiotics. Currently nothing by mouth. Laboratory data showed improved improving leukocytosis with WBC 19.5 hemoglobin 10.9 and platelets 204 BUN 24 and creatinine 0.74 and calcium 7.6. Current medications reviewed REVIEW OF SYSTEMS: CONSTITUTIONAL: No fever, no malaise, no fatigue. HEENT: No recent visual problems or hearing problems. Denied any sore throat. CARDIOVASCULAR: No chest pain, orthopnea, PND, no palpitations, no syncope. PULMONARY: No shortness of breath, no cough, no hemoptysis. GASTROINTESTINAL: As above NEUROLOGICAL: No headaches, no weakness, no numbness. HEMATOLOGICAL: Denies any bleeding or petechiae. GENITOURINARY: Denies any burning micturition, frequency, or urgency. MUSCULOSKELETAL/RHEUMATOLOGICAL: Denies any joint pain, swelling, or any muscle pain. ENDOCRINE: Denies any polyuria or polydipsia. The rest of the 14-point review of systems is negative. PHYSICAL EXAMINATION: GENERAL: The patient is alert and oriented x3, not in any acute distress. Well developed, well nourished. HEENT: Pupils are round and equally reacting to light. EOMI. No scleral icterus. No conjunctival pallor. Normocephalic, atraumatic. No pharyngeal erythema. No thyromegaly. CARDIOVASCULAR: S1 and S2 present. No murmurs, rubs, or gallops. PULMONARY: Chest is clear to auscultation, no wheezing or crackles. ABDOMEN: Distended, tenderness left lower quadrant ,normoactive bowel sounds. No palpable organomegaly. MUSCULOSKELETAL: No joint swelling or deformity. EXTREMITIES: No cyanosis, clubbing, or pedal edema. NEUROLOGICAL: Gross neurological examination did not reveal any focal deficits. SKIN: No rashes. Assessment and plan Abdominal pain Fecal impaction Severe constipation. Status post exploratory laparotomy, fecal disimpaction and appendectomy. On 01/22/2023 History of coronary artery disease Hypertension Hyperlipidemia History of irritable bowel syndrome Hepatitis B core IgM antibody positive. Monitor vital signs Monitor CBC Monitor CMP Continue IV fluids Continue pain management continue antiemetics Aggressive bowel regimen Results of CT abdominal and pelvis noted. Patient is status post expiratory laparotomy and distal disimpaction. Continue with pain medications, nothing by mouth and also on NG tube. General surgery is on board. Continue with antibiotics ceftriaxone and Flagyl. Labs and medication were reviewed.. Continue with symptomatic treatment. Resume home medication. Monitor labs and vitals. DVT and GI prophylaxis. Dictation was produced using [employer] software. please excuse any grammatical, word or spelling errors. Objective - Vital Signs Vital signs: Vital Signs Temp 98.3 F 01/23/23 07:55 Pulse 99 01/23/23 07:55 Resp 16 01/23/23 07:55 BP 104/73 01/23/23 07:55 Pulse Ox 96 01/23/23 09:58 FiO2 Intake & Output 01/22/23 01/23/23 01/23/23 18:59 06:59 18:59 Intake Total 1950 Output Total 400 1395 Balance -400 555 Intake: IV 1950 Output: Gastric Drainage 100 Urine 400 1270 Straight 400 Estimated Blood Loss 25 Other: Voiding Method Toilet Indwelling Catheter Indwelling Catheter # Voids 2 - Labs CBC & Chem 7: 01/24/23 06:41 01/24/23 06:41 Labs: Abnormal Lab Results - Last 24 Hours (Table) 01/22/23 01/22/23 01/22/23 Range/Units 06:14 06:14 10:50 WBC (3.8-10.6) k/uL RBC (3.80-5.40) m/uL Hgb (11.4-16.0) gm/dL Hct (34.0-46.0) % Immature Gran # 0.75 H (0.00-0.04) X 10*3/uL Neutrophils # 33.70 H (1.80-7.70) X 10*3/uL Lymphocytes # (1.0-4.8) k/uL Monocytes # 1.82 H (0.20-1.00) X 10*3/uL Eosinophils # 0 L (0.04-0.35) X 10*3/uL BUN (7-17) mg/dL Glucose (74-99) mg/dL Plasma Lactic Acid Nicholas (0.7-2.0) mmol/L Calcium (8.4-10.2) mg/dL Urine Protein 1+ H (Negative) Urine Bacteria Rare H (None) /hpf Hyaline Casts 4 H (0-2) /lpf Urine Mucus Occasional H (None) /hpf Hep B Core IgM Ab Reactive A (Non-Reactive) 01/22/23 01/23/23 01/23/23 Range/Units 17:14 05:58 05:58 WBC 19.5 H (3.8-10.6) k/uL RBC 3.34 L (3.80-5.40) m/uL Hgb 10.9 L (11.4-16.0) gm/dL Hct 32.3 L (34.0-46.0) % Immature Gran # (0.00-0.04) X 10*3/uL Neutrophils # 18.4 H (1.80-7.70) X 10*3/uL Lymphocytes # 0.4 L (1.0-4.8) k/uL Monocytes # (0.20-1.00) X 10*3/uL Eosinophils # (0.04-0.35) X 10*3/uL BUN 24 H (7-17) mg/dL Glucose 121 H (74-99) mg/dL Plasma Lactic Acid Nicholas 3.2 H* (0.7-2.0) mmol/L Calcium 7.6 L (8.4-10.2) mg/dL Urine Protein (Negative) Urine Bacteria (None) /hpf Hyaline Casts (0-2) /lpf Urine Mucus (None) /hpf Hep B Core IgM Ab (Non-Reactive)
--- NOTE | 2023-01-25 00:02 | P.PN ---
Subjective Progress Note Date: 01/24/23 History of present illness; patient is 62-year-old lady with past medical history significant for coronary disease, hypertension, hyperlipidemia, irritable bowel syndrome who presented to the ER because of abdominal pain. Patient stated that she has history of constipation and IBS and normally has baseline abdominal pain. Patient stated that she has not had a bowel movement for the last 2 weeks. This morning patient woke up this with severe abdominal pain located in the left lower quadrant, pain was sharp, nonradiating, not associated with any nausea or vomiting. There was no complaint of fever or chills. No complain of any blood in the stools. No complaint of chest pain or shortness of breath. Because of severe abdominal pain, patient came to the ER Initial lab work done in the ER showed WBC 22, platelet count 267, hemoglobin 13.8 sodium 137, potassium 4.4, BUNs 21, creatinine 0.69, glucose 147, AST 47, ALT 35, amylase 55, lipase 228 CT abdominal and pelvis done showed marked amount of stool burden throughout the colon extending to the sigmoid colon Patient admitted to internal medicine service 01/22/2023 Patient is currently lying in the bed. Awake alert and oriented. Still having abdominal pain and no bowel movement. Patient was also elevated WBC count 37.3 BUN 32.3 and creatinine 0.8 and mild transaminitis. Barium in the above was ordered as above General surgery recommendations. Showed there is obstruction of retrograde contrast at the level of the descending colon sigmoid colon junction discrete etiology beyond fecal impaction is not identified.. General surgery is planning for exploratory laparotomy.Patient was started on antibiotics empirically with ceftriaxone and also Flagyl was added. As per ID recommendations. Other laboratory data reviewed. 01/23/2023 Patient is status post exploratory laparotomy, fecal impaction and appendectomy. Postoperative day 1 Patient states that she feels better today. Abdominal pain is improved. No nausea or vomiting. No involvement of passing flatus yet. Patient is being continued on IV hypericin antibiotics. Currently nothing by mouth. Laboratory data showed improved improving leukocytosis with WBC 19.5 hemoglobin 10.9 and platelets 204 BUN 24 and creatinine 0.74 and calcium 7.6. 01/24/2023 Patient is currently resting in the bed. Postoperative day 2 Patient is awake alert and oriented x 3. Currently on room air. Abdominal pain is much improved. Denies any nausea or vomiting. Patient is NG tube has been discontinued. Patient is on ice chips. Nothing by mouth.. Patient was able to pass flatus. No bowel movement. Continued on GoLytely every 6 hours. Laboratory showed WBC trending down to 14.7 hemoglobin 10.1 platelets 181 BUN 17 and creatinine 0.69. Patient is also on empiric antibiotics ceftriaxone and metronidazole. Current medications reviewed REVIEW OF SYSTEMS: CONSTITUTIONAL: No fever, no malaise, no fatigue. HEENT: No recent visual problems or hearing problems. Denied any sore throat. CARDIOVASCULAR: No chest pain, orthopnea, PND, no palpitations, no syncope. PULMONARY: No shortness of breath, no cough, no hemoptysis. GASTROINTESTINAL: As above NEUROLOGICAL: No headaches, no weakness, no numbness. HEMATOLOGICAL: Denies any bleeding or petechiae. GENITOURINARY: Denies any burning micturition, frequency, or urgency. MUSCULOSKELETAL/RHEUMATOLOGICAL: Denies any joint pain, swelling, or any muscle pain. ENDOCRINE: Denies any polyuria or polydipsia. The rest of the 14-point review of systems is negative. PHYSICAL EXAMINATION: GENERAL: The patient is alert and oriented x3, not in any acute distress. Well developed, well nourished. HEENT: Pupils are round and equally reacting to light. EOMI. No scleral icterus. No conjunctival pallor. Normocephalic, atraumatic. No pharyngeal erythema. No thyromegaly. CARDIOVASCULAR: S1 and S2 present. No murmurs, rubs, or gallops. PULMONARY: Chest is clear to auscultation, no wheezing or crackles. ABDOMEN: Distended, tenderness left lower quadrant ,normoactive bowel sounds. No palpable organomegaly. MUSCULOSKELETAL: No joint swelling or deformity. EXTREMITIES: No cyanosis, clubbing, or pedal edema. NEUROLOGICAL: Gross neurological examination did not reveal any focal deficits. SKIN: No rashes. Assessment and plan Abdominal pain Fecal impaction Severe constipation. Status post exploratory laparotomy, fecal disimpaction and appendectomy. On 01/22/2023 History of coronary artery disease Hypertension Hyperlipidemia History of irritable bowel syndrome Hepatitis B core IgM antibody positive. Monitor vital signs Monitor CBC Monitor CMP Continue IV fluids Continue pain management continue antiemetics Aggressive bowel regimen Results of CT abdominal and pelvis noted. Patient is status post expiratory laparotomy and distal disimpaction. Continue with pain medications, nothing by mouth except icde chips. General surgery is on board. Continue with antibiotics ceftriaxone and Flagyl. Labs and medication were reviewed.. Continue with symptomatic treatment. Resume home medication. Monitor labs and vitals. DVT and GI prophylaxis. Dictation was produced using [employer] dictation software. please excuse any grammatical, word or spelling errors. Objective - Vital Signs Vital signs: Vital Signs Temp 98.1 F 01/24/23 07:47 Pulse 99 01/24/23 15:00 Resp 17 01/24/23 15:00 BP 131/77 01/24/23 15:00 Pulse Ox 93 L 01/24/23 15:00 FiO2 Intake & Output 01/24/23 01/24/23 01/25/23 06:59 18:59 06:59 Intake Total 200 Output Total 400 1600 Balance -400 -1400 Intake: Oral 200 Output: Gastric Drainage 200 Urine 400 1400 Other: Voiding Method Toilet Toilet # Bowel Movements 1 - Labs CBC & Chem 7: 01/24/23 06:41 01/24/23 06:41 Labs: Abnormal Lab Results - Last 24 Hours (Table) 01/24/23 01/24/23 Range/Units 06:41 06:41 WBC 14.7 H (3.8-10.6) k/uL RBC 3.18 L (3.80-5.40) m/uL Hgb 10.2 L (11.4-16.0) gm/dL Hct 30.8 L (34.0-46.0) % Neutrophils # 12.8 H (1.3-7.7) k/uL Chloride 109 H (98-107) mmol/L Calcium 7.7 L (8.4-10.2) mg/dL Microbiology - Last 24 Hours (Table) 01/22/23 17:21 Blood Culture - Preliminary Blood Assessment and Plan Time with Patient: Greater than 30
[2023-01-25] MEDS: ACETAMINOPHEN IV (For NPO) 1,000 MG in EMPTY BAG 1 BAG IVPB SCH ×4 (00:24→17:37)
[2023-01-25] MEDS: HEPARIN SODIUM,PORCINE 5,000 UNIT/ML 1 ML VIAL SQ SCH ×3 (00:25→16:31)
[2023-01-25] MEDS: metroNIDAZOLE-NS PMX 500 MG in SALINE 1 100ML.BAG IVPB SCH ×3 (00:45→16:31)
[2023-01-25 05:01] LABS: Hepatitis BE Antibody Nonreactive (Nonreactive); Hepatitis BE Antigen Nonreactive (Nonreactive)
[2023-01-25] MEDS: SODIUM CHLORIDE 0.9% 1,000 ML IV SCH ×3 (05:09→23:19)
[2023-01-25] MEDS: HYDROmorphone 1 MG/ML 1 ML SYRINGE IVP PRN (07:04)
[2023-01-25] MEDS: ONDANSETRON 4 MG/2 ML VIAL IVP PRN (07:11)
[2023-01-25] MEDS: FLUTICASONE 110 MCG INHALER INHALATION SCH ×2 (08:16→22:09)
[2023-01-25 08:43] LABS: Basophils % (A) 0 %; Eosinophils # (A) 0.2 k/uL (0-0.7); Eosinophils % (A) 1 %; HCT 32.1 % (34.0-46.0); HGB 10.7 gm/dL (11.4-16.0); Lymphocytes # (A) 1.1 k/uL (1.0-4.8); Lymphocytes % (A) 10 %; MCH 31.9 pg (25.0-35.0); MCHC 33.2 g/dL (31.0-37.0); MCV 96.2 fL (80.0-100.0); Mean Platelet Volume 7.8; Monocytes # (A) 0.5 k/uL (0-1.0); Monocytes % (A) 5 %; Neutrophils # (A) 8.9 k/uL (1.3-7.7); Neutrophils % (A) 82 %; Platelet Count 208 k/uL (150-450); RBC 3.34 m/uL (3.80-5.40); RDW 13.1 % (11.5-15.5); WBC 10.8 k/uL (3.8-10.6)
--- NOTE | 2023-01-25 09:05 | P.PN ---
Subjective Progress Note Date: 01/23/23 Principal diagnosis: Reason for follow-up is leukocytosis and hepatitis B antibodies positive Patient is a 62-year-old female with a past medical history significant for COPD asthma fibromyalgia hypertension hyperlipidemia patient presenting to the ER for evaluation of abdominal pain and constipation x 3 weeks patient did have CT abdominal pelvis which was marked amount of stool burden throughout the colon also noticed to have elevated white count patient subsequently was taken to the OR s/p exploratory laparotomy fecal disimpaction and appendectomy no mention of any bowel perforation and no cultures were done. On today's evaluation that is 01/23/2023 the patient remains to be afebrile, the patient is breathing comfortably on 2 L nasal cannula oxygen patient did have NG patient abdominal pain has decreased in intensity no chest pain shortness of breath or cough no bowel movement. The patient white count is down to 19.5 creatinine 0.74 patient hepatitis B core IgM antibodies came back positive hepatitis B surface antigen was negative. Objective - Vital Signs Vital signs: Vital Signs Temp 98.3 F 01/23/23 07:55 Pulse 101 H 01/23/23 11:28 Resp 17 01/23/23 11:28 BP 101/66 01/23/23 11:28 Pulse Ox 90 L 01/23/23 11:28 FiO2 Intake & Output 01/22/23 01/23/23 01/23/23 18:59 06:59 18:59 Intake Total 1950 Output Total 400 1395 Balance -400 555 Intake: IV 1950 Output: Gastric Drainage 100 Urine 400 1270 Straight 400 Estimated Blood Loss 25 Other: Voiding Method Toilet Indwelling Catheter Indwelling Catheter # Voids 2 - Exam GENERAL DESCRIPTION: Middle-aged female up in bed in no distress RESPIRATORY SYSTEM: Unlabored breathing , decreased breath sounds at bases HEART: S1 S2 regular rate and rhythm , ABDOMEN: Soft , no tenderness EXTREMITIES: No edema feet - Labs CBC & Chem 7: 01/25/23 08:11 01/24/23 06:41 Labs: Abnormal Lab Results - Last 24 Hours (Table) 01/22/23 01/22/23 01/23/23 Range/Units 06:14 17:14 05:58 WBC 19.5 H (3.8-10.6) k/uL RBC 3.34 L (3.80-5.40) m/uL Hgb 10.9 L (11.4-16.0) gm/dL Hct 32.3 L (34.0-46.0) % Neutrophils # 18.4 H (1.3-7.7) k/uL Lymphocytes # 0.4 L (1.0-4.8) k/uL BUN (7-17) mg/dL Glucose (74-99) mg/dL Plasma Lactic Acid Nicholas 3.2 H* (0.7-2.0) mmol/L Calcium (8.4-10.2) mg/dL Hep B Core IgM Ab Reactive A (Non-Reactive) 01/23/23 Range/Units 05:58 WBC (3.8-10.6) k/uL RBC (3.80-5.40) m/uL Hgb (11.4-16.0) gm/dL Hct (34.0-46.0) % Neutrophils # (1.3-7.7) k/uL Lymphocytes # (1.0-4.8) k/uL BUN 24 H (7-17) mg/dL Glucose 121 H (74-99) mg/dL Plasma Lactic Acid Nicholas (0.7-2.0) mmol/L Calcium 7.6 L (8.4-10.2) mg/dL Hep B Core IgM Ab (Non-Reactive) Assessment and Plan (1) Leukocytosis Current Visit: Yes Status: Acute Code(s): D72.829 - ELEVATED WHITE BLOOD CELL COUNT, UNSPECIFIED SNOMED Code(s): 312020930 (2) Penicillin allergy Current Visit: Yes Status: Acute Code(s): Z88.0 - ALLERGY STATUS TO PENICILLIN SNOMED Code(s): 39321776 (3) Hepatitis B Current Visit: Yes Status: Acute Code(s): B19.10 - UNSPECIFIED VIRAL HEPATITIS B WITHOUT HEPATIC COMA SNOMED Code(s): 54648195 Plan: 1patient with presentation to hospital abdominal pain and constipation in this patient who did not have any bowel movement for 3 weeks patient noticed to have a significant elevated white count with mild distention of the colon on the CT more likely related to the fecal stasis and likely need to cover for enteric gram-negative both aerobes and anaerobes 2-penicillin allergy that will limit the number of antibiotics safe to use 3the patient white count is trending down to continue with Rocephin and Flagyl and wait for the culture to finalize. 4patient did have hepatitis B IgM antibodies positive antigen is negative did have a history of hepatitis B vaccination clinically not behaving as acute hepatitis B we will check hepatitis B E antigen, antibodies and hepatitis B virus DNA patient and family has multiple questions regarding hepatitis B those were answered in layman terms Dictation was produced using [employer] dictation software. please excuse any grammatical, word or spelling errors. Time with Patient: Greater than 30
--- NOTE | 2023-01-25 09:08 | P.PN ---
Subjective Progress Note Date: 01/24/23 Principal diagnosis: Reason for follow-up is leukocytosis and hepatitis B antibodies positive Patient is a 62-year-old female with a past medical history significant for COPD asthma fibromyalgia hypertension hyperlipidemia patient presenting to the ER for evaluation of abdominal pain and constipation x 3 weeks patient did have CT abdominal pelvis which was marked amount of stool burden throughout the colon also noticed to have elevated white count patient subsequen tly was taken to the OR s/p exploratory laparotomy fecal disimpaction and appendectomy no mention of any bowel perforation and no cultures were done. On today's evaluation that is 01/24/2023 the patient continues to be afebrile, the patient is breathing comfortably on 2 L nasal cannula oxygen patient denies having any chest pain shortness of breath or cough abdominal pain has decreased in intensity no worsening output from the NG no bowel movement. The patient white count is down to 14.7 creatinine 0.6 Patient hepatitis B core IgM antibodies came back positive hepatitis B surface antigen was negative. Objective - Vital Signs Vital signs: Vital Signs Temp 98.1 F 01/24/23 07:47 Pulse 105 H 01/24/23 07:47 Resp 18 01/24/23 07:47 BP 131/74 01/24/23 07:47 Pulse Ox 95 01/24/23 07:47 FiO2 Intake & Output 01/23/23 01/24/23 01/24/23 18:59 06:59 18:59 Output Total 500 400 900 Balance -500 -400 -900 Output: Gastric Drainage 200 Urine 500 400 700 Other: Voiding Method Indwelling Catheter Toilet Toilet # Bowel Movements 1 - Exam GENERAL DESCRIPTION: Middle-aged female up in bed in no distress RESPIRATORY SYSTEM: Unlabored breathing , decreased breath sounds at bases HEART: S1 S2 regular rate and rhythm , ABDOMEN: Soft , no tenderness EXTREMITIES: No edema feet - Labs CBC & Chem 7: 01/25/23 08:11 01/24/23 06:41 Labs: Abnormal Lab Results - Last 24 Hours (Table) 01/24/23 01/24/23 Range/Units 06:41 06:41 WBC 14.7 H (3.8-10.6) k/uL RBC 3.18 L (3.80-5.40) m/uL Hgb 10.2 L (11.4-16.0) gm/dL Hct 30.8 L (34.0-46.0) % Neutrophils # 12.8 H (1.3-7.7) k/uL Chloride 109 H (98-107) mmol/L Calcium 7.7 L (8.4-10.2) mg/dL Microbiology - Last 24 Hours (Table) 01/22/23 17:21 Blood Culture - Preliminary Blood Assessment and Plan (1) Hepatitis B Current Visit: Yes Status: Acute Code(s): B19.10 - UNSPECIFIED VIRAL HEPATITIS B WITHOUT HEPATIC COMA SNOMED Code(s): 69224332 (2) Leukocytosis Current Visit: Yes Status: Acute Code(s): D72.829 - ELEVATED WHITE BLOOD CELL COUNT, UNSPECIFIED SNOMED Code(s): 019842688 (3) Penicillin allergy Current Visit: Yes Status: Acute Code(s): Z88.0 - ALLERGY STATUS TO PENICILLIN SNOMED Code(s): 10197676 Plan: 1patient with presentation to hospital abdominal pain and constipation in this patient who did not have any bowel movement for 3 weeks patient noticed to have a significant elevated white count with mild distention of the colon on the CT more likely related to the fecal stasis and likely need to cover for enteric gram-negative both aerobes and anaerobes 2-penicillin allergy that will limit the number of antibiotics safe to use 3the patient white count is trending down and is down to 14.7 today, patient to to continue with Rocephin and Flagyl and monitor clinical course closely 4patient did have hepatitis B IgM antibodies positive antigen is negative did have a history of hepatitis B vaccination clinically not behaving as acute hepatitis B we are currently waiting for hepatitis B E antigen, antibodies and hepatitis B virus DNA Questions concern answered Dictation was produced using [employer] software. please excuse any grammatical, word or spelling errors.
[2023-01-25] MEDS: bisacodyL 5 MG TABLET.DR PO SCH ×2 (09:10→21:05)
[2023-01-25] MEDS: PANTOPRAZOLE 40 MG/10 ML VIAL IV SCH (09:10)
[2023-01-25] MEDS: polyethylene glycoL 3350 17 GM POWD.PACK PO SCH ×3 (09:10→21:04)
--- NOTE | 2023-01-25 12:19 | P.PN ---
Subjective Progress Note Date: 01/25/23 CHIEF COMPLAINT: Colonic obstruction HISTORY OF PRESENT ILLNESS: Patient is postop day #3 status post exploratory laparotomy, fecal disimpaction and appendectomy. NG tube removed yesterday. Patient started on clear liquids. She does report increase in nausea and pain. She feels more bloated today. She did have 3 liquidy stools yesterday. She is passing a small amount of flatus. She has been ambulating. Afebrile. WBC is down from 14.7-10.8 Hgb 10.7 platelets 208 PHYSICAL EXAM: VITAL SIGNS: Reviewed. GENERAL: Well-developed in no acute distress. ABDOMEN: Patient's is a little more distended today. Mild tenderness palpation around the incision. Tenderness more on the left side of the incision. incisional dressing with small amount of blood saturation at the top of the dressing. NEUROLOGIC: Alert and oriented. Cranial nerves II through XII grossly intact. ASSESSMENT: 1. Colonic obstruction secondary to fecal stasis PLAN: -Continue clear liquid diet -No carbonated beverages or straws -Soap vida enema ordered -Encouraged patient to increase activity level -Continue antibiotics per ID service -Continue IV fluids -Continue pain management -DVT prophylaxis subcu heparin Physician Electric Clock Mechanic note has been reviewed by physician. Signing provider agrees with the documented findings, assessment, and plan of care. I have personally seen and examined the patient, reviewed the TERMITE CONTROL SERVICER /PAs history, exam and MDM and agree with the assessment and plan as written. Based on total visit time, I have performed more than 50% of the visit. As above: Patient complaining of mild bloating. No significant pain. Still says she is significantly less bloated than preop. She had a small stool. No nausea. Says she was drinking a lot of liquids yesterday evening. Will given a soapsuds enema. Continue MiraLAX. Will follow. Objective - Vital Signs Vital signs: Vital Signs Temp 98.2 F 01/25/23 08:59 Pulse 65 01/25/23 08:59 Resp 17 01/25/23 08:59 BP 103/62 01/25/23 08:59 Pulse Ox 92 L 01/25/23 08:59 FiO2 Intake & Output 01/24/23 01/25/23 01/25/23 18:59 06:59 18:59 Intake Total 200 430 Output Total 1600 Balance -1400 430 Intake: Oral 200 430 Output: Gastric Drainage 200 Urine 1400 Other: Voiding Method Toilet Toilet Toilet # Voids 3 # Bowel Movements 1 - Labs CBC & Chem 7: 01/25/23 08:11 01/24/23 06:41 Labs: Abnormal Lab Results - Last 24 Hours (Table) 01/25/23 Range/Units 08:11 WBC 10.8 H (3.8-10.6) k/uL RBC 3.34 L (3.80-5.40) m/uL Hgb 10.7 L (11.4-16.0) gm/dL Hct 32.1 L (34.0-46.0) % Neutrophils # 8.9 H (1.3-7.7) k/uL Microbiology - Last 24 Hours (Table) 01/22/23 17:21 Blood Culture - Preliminary Blood
[2023-01-25] MEDS: HYDROmorphone 0.5 MG/0.5 ML SYRINGE IVP PRN ×2 (12:56→21:05)
[2023-01-25 13:53] VITALS: BMI 19.7
--- NOTE | 2023-01-25 15:00 | P.PN ---
Subjective Progress Note Date: 01/25/23 Principal diagnosis: Reason for follow-up is leukocytosis and hepatitis B antibodies positive Patient is a 62-year-old female with a past medical history significant for COPD asthma fibromyalgia hypertension hyperlipidemia patient presenting to the ER for evaluation of abdominal pain and constipation x 3 weeks patient did have CT abdominal pelvis which was marked amount of stool burden throughout the colon also noticed to have elevated white count patient subsequen tly was taken to the OR s/p exploratory laparotomy fecal disimpaction and appendectomy no mention of any bowel perforation and no cultures were done. On today's evaluation that is 01/25/2023 patient denies any fever or any chills, patient is breathing comfortably on room air patient complaining of some abdominal distention and no bowel movement denies having any nausea or vomiting enema has been ordered by surgery no chest pain shortness of breath or cough. The patient white count is down to 10.08, hepatitis Be antigen and antibodies are negative Objective - Vital Signs Vital signs: Vital Signs Temp 98.2 F 01/25/23 08:59 Pulse 65 01/25/23 08:59 Resp 17 01/25/23 08:59 BP 103/62 01/25/23 08:59 Pulse Ox 92 L 01/25/23 08:59 FiO2 Intake & Output 01/24/23 01/25/23 01/25/23 18:59 06:59 18:59 Intake Total 200 430 Output Total 1600 Balance -1400 430 Intake: Oral 200 430 Output: Gastric Drainage 200 Urine 1400 Other: Voiding Method Toilet Toilet Toilet # Voids 3 # Bowel Movements 1 - Exam GENERAL DESCRIPTION: Middle-aged female up in bed in no distress RESPIRATORY SYSTEM: Unlabored breathing , decreased breath sounds at bases HEART: S1 S2 regular rate and rhythm , ABDOMEN: Soft , no tenderness EXTREMITIES: No edema feet - Labs CBC & Chem 7: 01/25/23 08:11 01/24/23 06:41 Labs: Abnormal Lab Results - Last 24 Hours (Table) 01/25/23 Range/Units 08:11 WBC 10.8 H (3.8-10.6) k/uL RBC 3.34 L (3.80-5.40) m/uL Hgb 10.7 L (11.4-16.0) gm/dL Hct 32.1 L (34.0-46.0) % Neutrophils # 8.9 H (1.3-7.7) k/uL Microbiology - Last 24 Hours (Table) 01/22/23 17:21 Blood Culture - Preliminary Blood Assessment and Plan (1) Hepatitis B Current Visit: Yes Status: Acute Code(s): B19.10 - UNSPECIFIED VIRAL HEPATITIS B WITHOUT HEPATIC COMA SNOMED Code(s): 50092400 (2) Leukocytosis Current Visit: Yes Status: Acute Code(s): D72.829 - ELEVATED WHITE BLOOD CELL COUNT, UNSPECIFIED SNOMED Code(s): 518788558 (3) Penicillin allergy Current Visit: Yes Status: Acute Code(s): Z88.0 - ALLERGY STATUS TO PENICILLIN SNOMED Code(s): 50961552 Plan: 1patient with presentation to hospital abdominal pain and constipation in this patient who did not have any bowel movement for 3 weeks patient noticed to have a significant elevated white count with mild distention of the colon on the CT more likely related to the fecal stasis and likely need to cover for enteric gra m-negative both aerobes and anaerobes 2-penicillin allergy that will limit the number of antibiotics safe to use 3The patient white count down to 10.7 patient to continue with Rocephin and Flagyl waiting for resumption of her bowel activity. 4patient did have hepatitis B IgM antibodies positive however the patient hepatitis B surface antigen is negative hepatitis B E antigen and antibodies are negative more likely related to vaccination rather than infection multiple questions concern answered Dictation was produced using [employer] dictation software. please excuse any grammatical, word or spelling errors. Time with Patient: Less than 30
[2023-01-25 15:18] LABS: Hepatitis B Virus DNA Not detected (Not detected); Hepatitis B Virus DNA, Quant <10 IU/mL (<10); Log HBV IU/mL <1.00 (<1.00)
[2023-01-25] MEDS: METOCLOPRAMIDE 5 MG/ML 2 ML VIAL IVP PRN (16:35)
[2023-01-25] MEDS: AMITRIPTYLINE HCL 25 MG TAB PO SCH (21:04)
[2023-01-25] MEDS: amLODIPine 5 MG TAB PO SCH (21:04)
[2023-01-25] MEDS: CHOLECALCIFEROL 25 MCG (1000 IU) TABLET PO SCH (21:05)
[2023-01-26] MEDS: ACETAMINOPHEN IV (For NPO) 1,000 MG in EMPTY BAG 1 BAG IVPB SCH ×5 (00:10→23:00)
[2023-01-26] MEDS: HEPARIN SODIUM,PORCINE 5,000 UNIT/ML 1 ML VIAL SQ SCH ×4 (00:10→23:00)
[2023-01-26] MEDS: SODIUM CHLORIDE 0.9% 1,000 ML IV SCH ×2 (01:30→16:39)
[2023-01-26] MEDS: HYDROmorphone 0.5 MG/0.5 ML SYRINGE IVP PRN ×3 (01:30→21:28)
[2023-01-26] MEDS: metroNIDAZOLE-NS PMX 500 MG in SALINE 1 100ML.BAG IVPB SCH ×4 (01:32→23:39)
[2023-01-26] MEDS: FLUTICASONE 110 MCG INHALER INHALATION SCH ×2 (08:05→21:44)
[2023-01-26] MEDS: PANTOPRAZOLE 40 MG/10 ML VIAL IV SCH (08:55)
[2023-01-26] MEDS: bisacodyL 5 MG TABLET.DR PO SCH ×2 (08:55→21:28)
[2023-01-26] MEDS: polyethylene glycoL 3350 17 GM POWD.PACK PO SCH ×3 (08:56→21:28)
[2023-01-26 09:42] LABS: Basophils % (A) 0 %; Eosinophils # (A) 0.1 k/uL (0-0.7); Eosinophils % (A) 1 %; HCT 37.3 % (34.0-46.0); HGB 12.5 gm/dL (11.4-16.0); Lymphocytes % (A) 10 %; MCH 31.7 pg (25.0-35.0); MCHC 33.5 g/dL (31.0-37.0); MCV 94.7 fL (80.0-100.0); Mean Platelet Volume 7.8; Monocytes # (A) 0.5 k/uL (0-1.0); Monocytes % (A) 5 %; Neutrophils # (A) 8.1 k/uL (1.3-7.7); Neutrophils % (A) 83 %; Platelet Count 256 k/uL (150-450); RBC 3.94 m/uL (3.80-5.40); WBC 9.8 k/uL (3.8-10.6)
[2023-01-26 09:56] LABS: African American GFR (CKD) >90 (>60 ml/min/1.73 sqM); Anion Gap 12 mmol/L; Blood Urea Nitrogen 4 mg/dL (7-17); Calcium 7.9 mg/dL (8.4-10.2); Carbon Dioxide 25 mmol/L (22-30); Chloride 99 mmol/L (98-107); Glucose 98 mg/dL (74-99); Non-African American GFR(CKD) >90 (>60 ml/min/1.73 sqM); Sodium 136 mmol/L (137-145)
[2023-01-26 10:20] LABS: Potassium 2.4 mmol/L (3.5-5.1)
[2023-01-26] MEDS ORDERED: POTASSIUM CHLORIDE 20 MEQ in WATER FOR INJECTION 1 100ML.BAG IVPB STA (10:36)
[2023-01-26] MEDS ORDERED: POTASSIUM CHLORIDE ER 20 MEQ TAB.ER PO STA ×2 (10:37)
--- NOTE | 2023-01-26 13:15 | P.PN ---
Subjective Progress Note Date: 01/26/23 CHIEF COMPLAINT: Colonic obstruction HISTORY OF PRESENT ILLNESS: Patient is postop day #4 status post exploratory laparotomy, fecal disimpaction and appendectomy. Patient having bowel movements. She reports that her abdominal distention is slightly better. She's decrease in nausea. She has been up and ambulating. She is complaining of mouth sores. Afebrile. WBC is down from 10.8-9.8 and the globin 12.5 sodium 136 potassium is 2.4 creatinine 0.52 PHYSICAL EXAM: VITAL SIGNS: Reviewed. GENERAL: Well-developed in no acute distress. ABDOMEN: Abdomen is softer. Mildly distended. Incision site clean dry and intact. NEUROLOGIC: Alert and oriented. Cranial nerves II through XII grossly intact. ASSESSMENT: 1. Colonic obstruction secondary to fecal stasis 2. Hypokalemia PLAN: -Advance diet to full liquids. Avoid carbonated beverages -COOLS solution with nystatin ordered for oral sores -Continue laxatives -Encouraged patient to increase activity level -Continue antibiotics per ID service -Discontinue IV fluids -Replace potassium -Continue pain management -DVT prophylaxis subcu heparin Physician Field Advisor note has been reviewed by physician. Signing provider agrees with the documented findings, assessment, and plan of care. I have personally seen and examined the patient, reviewed the DINING ROOM SUPERVISOR /PAs history, exam and MDM and agree with the assessment and plan as written. Based on total visit time, I have performed more than 50% of the visit. As above: Patient doing well today. Having good bowel function. Advance diet to full liquids. Nystatin for oral plaque. Ambien daily. Possible discharge tomorrow. Objective - Vital Signs Vital signs: Vital Signs Temp 98.2 F 01/26/23 08:50 Pulse 96 01/26/23 08:50 Resp 16 01/26/23 08:50 BP 137/80 01/26/23 08:50 Pulse Ox 92 L 01/26/23 08:50 FiO2 Intake & Output 01/25/23 01/26/23 01/26/23 18:59 06:59 18:59 Intake Total 400 Output Total 320 Balance 80 Weight 52.163 kg Intake: Oral 400 Output: Urine 320 Other: Voiding Method Toilet Toilet - Labs CBC & Chem 7: 01/26/23 09:06 01/26/23 09:06 Labs: Abnormal Lab Results - Last 24 Hours (Table) 01/26/23 01/26/23 Range/Units 09:06 09:06 Neutrophils # 8.1 H (1.3-7.7) k/uL Sodium 136 L (137-145) mmol/L Potassium 2.4 L* (3.5-5.1) mmol/L BUN 4 L (7-17) mg/dL Calcium 7.9 L (8.4-10.2) mg/dL Microbiology - Last 24 Hours (Table) 01/22/23 17:21 Blood Culture - Preliminary Blood
[2023-01-26] MEDS: MAG HYDROX/AL HYDROX/SIMETH 30 ML, LIDOCAINE VISCOUS 2% 30 ML, diphenhydrAMINE ELIXIR 7... PO SCH ×12 (13:24→21:29)
[2023-01-26] MEDS ORDERED: Potassium Replacement Protocol 1 EACH MISC MISCELLANE PRN (19:08)
[2023-01-26] MEDS: amLODIPine 5 MG TAB PO SCH (21:28)
[2023-01-26] MEDS: AMITRIPTYLINE HCL 25 MG TAB PO SCH (21:28)
[2023-01-26] MEDS: CHOLECALCIFEROL 25 MCG (1000 IU) TABLET PO SCH (21:28)
[2023-01-26] MEDS: ONDANSETRON 4 MG/2 ML VIAL IVP PRN (21:37)
--- NOTE | 2023-01-26 21:50 | P.PN ---
Subjective Progress Note Date: 01/26/23 Principal diagnosis: Reason for follow-up is leukocytosis and hepatitis B antibodies positive Patient is a 62-year-old female with a past medical history significant for COPD asthma fibromyalgia hypertension hyperlipidemia patient presenting to the ER for evaluation of abdominal pain and constipation x 3 weeks patient did have CT abdominal pelvis which was marked amount of stool burden throughout the colon also noticed to have elevated white count patient subsequen tly was taken to the OR s/p exploratory laparotomy fecal disimpaction and appendectomy no mention of any bowel perforation and no cultures were done. On today's evaluation that is 01/26/2023 the patient remains to be afebrile, the patient is breathing comfortably on room air patient denies having any chest pain or shortness of breath or cough abdominal pain has slightly decreased in intensity no nausea no vomiting no new symptoms. Patient did have a normalization of the white count which is down to 9.8 creatinine 0.52 hepatitis B DNA Objective - Vital Signs Vital signs: Vital Signs Temp 98.2 F 01/26/23 08:50 Pulse 96 01/26/23 08:50 Resp 16 01/26/23 08:50 BP 137/80 01/26/23 08:50 Pulse Ox 92 L 01/26/23 08:50 FiO2 Intake & Output 01/25/23 01/26/23 01/26/23 18:59 06:59 18:59 Intake Total 400 Output Total 320 Balance 80 Weight 52.163 kg Intake: Oral 400 Output: Urine 320 Other: Voiding Method Toilet Toilet - Exam GENERAL DESCRIPTION: Middle-aged female up in bed in no distress RESPIRATORY SYSTEM: Unlabored breathing , decreased breath sounds at bases HEART: S1 S2 regular rate and rhythm , ABDOMEN: Soft , no tenderness EXTREMITIES: No edema feet - Labs CBC & Chem 7: 01/26/23 09:06 01/26/23 09:06 Labs: Abnormal Lab Results - Last 24 Hours (Table) 01/26/23 01/26/23 Range/Units 09:06 09:06 Neutrophils # 8.1 H (1.3-7.7) k/uL Sodium 136 L (137-145) mmol/L Potassium 2.4 L* (3.5-5.1) mmol/L BUN 4 L (7-17) mg/dL Calcium 7.9 L (8.4-10.2) mg/dL Microbiology - Last 24 Hours (Table) 01/22/23 17:21 Blood Culture - Preliminary Blood Assessment and Plan (1) Hepatitis B Current Visit: Yes Status: Acute Code(s): B19.10 - UNSPECIFIED VIRAL HEPATITIS B WITHOUT HEPATIC COMA SNOMED Code(s): 89758304 (2) Leukocytosis Current Visit: Yes Status: Acute Code(s): D72.829 - ELEVATED WHITE BLOOD CELL COUNT, UNSPECIFIED SNOMED Code(s): 587287682 (3) Penicillin allergy Current Visit: Yes Status: Acute Code(s): Z88.0 - ALLERGY STATUS TO PENICILLIN SNOMED Code(s): 65574145 Plan: 1patient with presentation to hospital abdominal pain and constipation in this patient who did not have any bowel movement for 3 weeks patient noticed to have a significant elevated white count with mild distention of the colon on the CT more likely related to the fecal stasis and likely need to cover for enteric gram-negative both aerobes and anaerobes 2-penicillin allergy that will limit the number of antibiotics safe to use -3the patient white count has normalized we will carry patient Rocephin and Flagyl transitioned over antibiotics once the patient did improvement in her bowel activity. 4patient did have have a positive hepatitis B IgM antibodies however the patient did have a negative hepatitis B surface antigen as well as negative hepatitis B E antigen antibodies and negative DNA no evidence of any active or recent infection Dictation was produced using [employer] dictation software. please excuse any grammatical, word or spelling errors. Time with Patient: Less than 30
--- NOTE | 2023-01-27 00:11 | P.PN ---
Subjective Progress Note Date: 01/25/23 History of present illness; patient is 62-year-old lady with past medical history significant for coronary disease, hypertension, hyperlipidemia, irritable bowel syndrome who presented to the ER because of abdominal pain. Patient stated that she has history of constipation and IBS and normally has baseline abdominal pain. Patient stated that she has not had a bowel movement for the last 2 weeks. This morning patient woke up this with severe abdominal pain located in the left lower quadrant, pain was sharp, nonradiating, not associated with any nausea or vomiting. There was no complaint of fever or chills. No complain of any blood in the stools. No complaint of chest pain or shortness of breath. Because of severe abdominal pain, patient came to the ER Initial lab work done in the ER showed WBC 22, platelet count 267, hemoglobin 13.8 sodium 137, potassium 4.4, BUNs 21, creatinine 0.69, glucose 147, AST 47, ALT 35, amylase 55, lipase 228 CT abdominal and pelvis done showed marked amount of stool burden throughout the colon extending to the sigmoid colon Patient admitted to internal medicine service 01/22/2023 Patient is currently lying in the bed. Awake alert and oriented. Still having abdominal pain and no bowel movement. Patient was also elevated WBC count 37.3 BUN 32.3 and creatinine 0.8 and mild transaminitis. Barium in the above was ordered as above General surgery recommendations. Showed there is obstruction of retrograde contrast at the level of the descending colon sigmoid colon junction discrete etiology beyond fecal impaction is not identified.. General surgery is planning for exploratory laparotomy.Patient was started on antibiotics empirically with ceftriaxone and also Flagyl was added. As per ID recommendations. Other laboratory data reviewed. 01/23/2023 Patient is status post exploratory laparotomy, fecal impaction and appendectomy. Postoperative day 1 Patient states that she feels better today. Abdominal pain is improved. No nausea or vomiting. No involvement of passing flatus yet. Patient is being continued on IV hypericin antibiotics. Currently nothing by mouth. Laboratory data showed improved improving leukocytosis with WBC 19.5 hemoglobin 10.9 and platelets 204 BUN 24 and creatinine 0.74 and calcium 7.6. 01/24/2023 Patient is currently resting in the bed. Postoperative day 2 Patient is awake alert and oriented x 3. Currently on room air. Abdominal pain is much improved. Denies any nausea or vomiting. Patient is NG tube has been discontinued. Patient is on ice chips. Nothing by mouth.. Patient was able to pass flatus. No bowel movement. Continued on GoLytely every 6 hours. Laboratory showed WBC trending down to 14.7 hemoglobin 10.1 platelets 181 BUN 17 and creatinine 0.69. Patient is also on empiric antibiotics ceftriaxone and metronidazole. 01/25/2023 Patient is postoperative day 3 Currently lying in bed. Awake alert and oriented x 3. Patient states that she is not feeling well and more bloated today. Did have liquid stools yesterday. NG tube was removed yesterday. Patient is tolerating clear liquid diet. Patient is ambulating. No complaints of chest pain or shortness of breath. No cough or sputum production. No fever no chills. Laboratory data showed WBC 10.8 hemoglobin 10.7 and platelets 208 Current medications reviewed. REVIEW OF SYSTEMS: CONSTITUTIONAL: No fever, no malaise, no fatigue. HEENT: No recent visual problems or hearing problems. Denied any sore throat. CARDIOVASCULAR: No chest pain, orthopnea, PND, no palpitations, no syncope. PULMONARY: No shortness of breath, no cough, no hemoptysis. GASTROINTESTINAL: As above NEUROLOGICAL: No headaches, no weakness, no numbness. HEMATOLOGICAL: Denies any bleeding or petechiae. GENITOURINARY: Denies any burning micturition, frequency, or urgency. MUSCULOSKELETAL/RHEUMATOLOGICAL: Denies any joint pain, swelling, or any muscle pain. ENDOCRINE: Denies any polyuria or polydipsia. The rest of the 14-point review of systems is negative. PHYSICAL EXAMINATION: GENERAL: The patient is alert and oriented x3, not in any acute distress. Well developed, well nourished. HEENT: Pupils are round and equally reacting to light. EOMI. No scleral icterus. No conjunctival pallor. Normocephalic, atraumatic. No pharyngeal erythema. No thyromegaly. CARDIOVASCULAR: S1 and S2 present. No murmurs, rubs, or gallops. PULMONARY: Chest is clear to auscultation, no wheezing or crackles. ABDOMEN: Distended, tenderness left lower quadrant ,normoactive bowel sounds. No palpable organomegaly. MUSCULOSKELETAL: No joint swelling or deformity. EXTREMITIES: No cyanosis, clubbing, or pedal edema. NEUROLOGICAL: Gross neurological examination did not reveal any focal deficits. SKIN: No rashes. Assessment and plan Abdominal pain Fecal impaction Severe constipation. Status post exploratory laparotomy, fecal disimpaction and appendectomy. On 01/22/2023 History of coronary artery disease Hypertension Hyperlipidemia History of irritable bowel syndrome Hepatitis B core IgM antibody positive. Monitor vital signs Monitor CBC Monitor CMP Continue IV fluids Continue pain management continue antiemetics Aggressive bowel regimen Results of CT abdominal and pelvis noted. Patient is status post expiratory laparotomy and distal disimpaction. Continue with pain medications, nothing by mouth except icde chips. General surgery is on board. Continue with antibiotics ceftriaxone and Flagyl. Labs and medication were reviewed.. Continue with symptomatic treatment. Resume home medication. Monitor labs and vitals. DVT and GI prophylaxis. Dictation was produced using [email or web address] dictation software. please excuse any grammatical, word or spelling errors. Objective - Vital Signs Vital signs: Vital Signs Temp 98.3 F 01/25/23 16:00 Pulse 89 01/25/23 16:00 Resp 16 01/25/23 16:00 BP 153/87 01/25/23 16:00 Pulse Ox 92 L 01/25/23 16:00 FiO2 Intake & Output 01/25/23 01/25/23 01/26/23 06:59 18:59 06:59 Intake Total 430 Balance 430 Weight 52.163 kg Intake: Oral 430 Other: Voiding Method Toilet Toilet # Voids 3 - Labs CBC & Chem 7: 01/26/23 09:06 01/26/23 23:08 Labs: Abnormal Lab Results - Last 24 Hours (Table) 01/25/23 Range/Units 08:11 WBC 10.8 H (3.8-10.6) k/uL RBC 3.34 L (3.80-5.40) m/uL Hgb 10.7 L (11.4-16.0) gm/dL Hct 32.1 L (34.0-46.0) % Neutrophils # 8.9 H (1.3-7.7) k/uL Microbiology - Last 24 Hours (Table) 01/22/23 17:21 Blood Culture - Preliminary Blood
[2023-01-27] MEDS: POTASSIUM CHLORIDE ER 20 MEQ TAB.ER PO SCH ×3 (00:19→02:34)
--- NOTE | 2023-01-27 00:22 | P.PN ---
Subjective Progress Note Date: 01/26/23 History of present illness; patient is 62-year-old lady with past medical history significant for coronary disease, hypertension, hyperlipidemia, irritable bowel syndrome who presented to the ER because of abdominal pain. Patient stated that she has history of constipation and IBS and normally has baseline abdominal pain. Patient stated that she has not had a bowel movement for the last 2 weeks. This morning patient woke up this with severe abdominal pain located in the left lower quadrant, pain was sharp, nonradiating, not associated with any nausea or vomiting. There was no complaint of fever or chills. No complain of any blood in the stools. No complaint of chest pain or shortness of breath. Because of severe abdominal pain, patient came to the ER Initial lab work done in the ER showed WBC 22, platelet count 267, hemoglobin 13.8 sodium 137, potassium 4.4, BUNs 21, creatinine 0.69, glucose 147, AST 47, ALT 35, amylase 55, lipase 228 CT abdominal and pelvis done showed marked amount of stool burden throughout the colon extending to the sigmoid colon Patient admitted to internal medicine service 01/22/2023 Patient is currently lying in the bed. Awake alert and oriented. Still having abdominal pain and no bowel movement. Patient was also elevated WBC count 37.3 BUN 32.3 and creatinine 0.8 and mild transaminitis. Barium in the above was ordered as above General surgery recommendations. Showed there is obstruction of retrograde contrast at the level of the descending colon sigmoid colon junction discrete etiology beyond fecal impaction is not identified.. General surgery is planning for exploratory laparotomy.Patient was started on antibiotics empirically with ceftriaxone and also Flagyl was added. As per ID recommendations. Other laboratory data reviewed. 01/23/2023 Patient is status post exploratory laparotomy, fecal impaction and appendectomy. Postoperative day 1 Patient states that she feels better today. Abdominal pain is improved. No nausea or vomiting. No involvement of passing flatus yet. Patient is being continued on IV hypericin antibiotics. Currently nothing by mouth. Laboratory data showed improved improving leukocytosis with WBC 19.5 hemoglobin 10.9 and platelets 204 BUN 24 and creatinine 0.74 and calcium 7.6. 01/24/2023 Patient is currently resting in the bed. Postoperative day 2 Patient is awake alert and oriented x 3. Currently on room air. Abdominal pain is much improved. Denies any nausea or vomiting. Patient is NG tube has been discontinued. Patient is on ice chips. Nothing by mouth.. Patient was able to pass flatus. No bowel movement. Continued on GoLytely every 6 hours. Laboratory showed WBC trending down to 14.7 hemoglobin 10.1 platelets 181 BUN 17 and creatinine 0.69. Patient is also on empiric antibiotics ceftriaxone and metronidazole. 01/25/2023 Patient is postoperative day 3 Currently lying in bed. Awake alert and oriented x 3. Patient states that she is not feeling well and more bloated today. Did have liquid stools yesterday. NG tube was removed yesterday. Patient is tolerating clear liquid diet. Patient is ambulating. No complaints of chest pain or shortness of breath. No cough or sputum production. No fever no chills. Laboratory data showed WBC 10.8 hemoglobin 10.7 and platelets 208 01/26/2023 Patient is postoperative day 4. Currently resting in bed. Awake alert and oriented x 3. On room air. Abdominal distention is better as per patient. Patient did have bowel movement. Nausea is also improving. Patient was complaining of cold sores, cold solution was added. Patient is being continued on IV antibiotics ceftriaxone and Flagyl. Diet advanced to full liquid diet. Laboratory showed sodium 136 potassium 2.4 today which is being replaced Chloride 99 bicarb is 25 BUN 4 and creatinine 0.52. Calcium 7.9. General surgery and ID is on board. Current medications reviewed. REVIEW OF SYSTEMS: CONSTITUTIONAL: No fever, no malaise, no fatigue. HEENT: No recent visual problems or hearing problems. Denied any sore throat. CARDIOVASCULAR: No chest pain, orthopnea, PND, no palpitations, no syncope. PULMONARY: No shortness of breath, no cough, no hemoptysis. GASTROINTESTINAL: As above NEUROLOGICAL: No headaches, no weakness, no numbness. HEMATOLOGICAL: Denies any bleeding or petechiae. GENITOURINARY: Denies any burning micturition, frequency, or urgency. MUSCULOSKELETAL/RHEUMATOLOGICAL: Denies any joint pain, swelling, or any muscle pain. ENDOCRINE: Denies any polyuria or polydipsia. The rest of the 14-point review of systems is negative. PHYSICAL EXAMINATION: GENERAL: The patient is alert and oriented x3, not in any acute distress. Well developed, well nourished. HEENT: Pupils are round and equally reacting to light. EOMI. No scleral icterus. No conjunctival pallor. Normocephalic, atraumatic. No pharyngeal erythema. No thyromegaly. CARDIOVASCULAR: S1 and S2 present. No murmurs, rubs, or gallops. PULMONARY: Chest is clear to auscultation, no wheezing or crackles. ABDOMEN: Distended, tenderness left lower quadrant ,normoactive bowel sounds. No palpable organomegaly. MUSCULOSKELETAL: No joint swelling or deformity. EXTREMITIES: No cyanosis, clubbing, or pedal edema. NEUROLOGICAL: Gross neurological examination did not reveal any focal deficits. SKIN: No rashes. Assessment and plan Abdominal pain Fecal impaction Severe constipation. Status post exploratory laparotomy, fecal disimpaction and appendectomy. On 01/22/2023 Hypokalemia Mouth sores History of coronary artery disease Hypertension Hyperlipidemia History of irritable bowel syndrome Hepatitis B core IgM antibody positive. Monitor vital signs Monitor CBC Monitor CMP Discontinue IV fluids. Patient was advanced to full liquid diet Nadeem solution was added for mouth sores. Continue pain management continue antiemetics Continue with antibiotics ceftriaxone and Flagyl. Encourage ambulation and possible discharge in the next 24 hours with improvement in clinical symptoms.. Labs and medication were reviewed.. Continue with symptomatic treatment. Resume home medication. Monitor labs and vitals. DVT and GI prophylaxis. Dictation was produced using [employer] dictation software. please excuse any grammatical, word or spelling errors. Objective - Vital Signs Vital signs: Vital Signs Temp 98.2 F 01/26/23 16:00 Pulse 102 H 01/26/23 16:00 Resp 17 01/26/23 16:00 BP 155/85 01/26/23 16:00 Pulse Ox 95 01/26/23 16:00 FiO2 Intake & Output 01/26/23 01/26/23 01/27/23 06:59 18:59 06:59 Intake Total 400 Output Total 320 Balance 80 Intake: Oral 400 Output: Urine 320 Other: Voiding Method Toilet Toilet # Voids 3 # Bowel Movements 3 - Labs CBC & Chem 7: 01/26/23 09:06 01/26/23 23:08 Labs: Abnormal Lab Results - Last 24 Hours (Table) 01/26/23 01/26/23 Range/Units 09:06 09:06 Neutrophils # 8.1 H (1.3-7.7) k/uL Sodium 136 L (137-145) mmol/L Potassium 2.4 L* (3.5-5.1) mmol/L BUN 4 L (7-17) mg/dL Calcium 7.9 L (8.4-10.2) mg/dL Microbiology - Last 24 Hours (Table) 01/22/23 17:21 Blood Culture - Preliminary Blood
[2023-01-27 05:27] LABS: Basophils % (A) 0 %; Eosinophils # (A) 0.2 k/uL (0-0.7); Eosinophils % (A) 3 %; HCT 36.2 % (34.0-46.0); HGB 11.8 gm/dL (11.4-16.0); Lymphocytes # (A) 1.4 k/uL (1.0-4.8); Lymphocytes % (A) 16 %; MCH 30.8 pg (25.0-35.0); MCHC 32.6 g/dL (31.0-37.0); MCV 94.4 fL (80.0-100.0); Mean Platelet Volume 8.2; Monocytes # (A) 0.6 k/uL (0-1.0); Monocytes % (A) 7 %; Neutrophils % (A) 71 %; Platelet Count 246 k/uL (150-450); RBC 3.83 m/uL (3.80-5.40); RDW 13.4 % (11.5-15.5); WBC 8.5 k/uL (3.8-10.6)
[2023-01-27] MEDS: ACETAMINOPHEN IV (For NPO) 1,000 MG in EMPTY BAG 1 BAG IVPB SCH ×3 (05:44→17:28)
[2023-01-27 05:46] LABS: African American GFR (CKD) >90 (>60 ml/min/1.73 sqM); Anion Gap 6 mmol/L; Blood Urea Nitrogen 3 mg/dL (7-17); Calcium 7.9 mg/dL (8.4-10.2); Carbon Dioxide 28 mmol/L (22-30); Chloride 101 mmol/L (98-107); Glucose 109 mg/dL (74-99); Non-African American GFR(CKD) >90 (>60 ml/min/1.73 sqM); Potassium 3.6 mmol/L (3.5-5.1); Sodium 135 mmol/L (137-145)
[2023-01-27] MEDS: FLUTICASONE 110 MCG INHALER INHALATION SCH ×2 (08:14→21:00)
[2023-01-27] MEDS: MAG HYDROX/AL HYDROX/SIMETH 30 ML, LIDOCAINE VISCOUS 2% 30 ML, diphenhydrAMINE ELIXIR 7... PO SCH ×12 (09:31→21:31)
[2023-01-27] MEDS: polyethylene glycoL 3350 17 GM POWD.PACK PO SCH ×3 (09:31→21:23)
[2023-01-27] MEDS: PANTOPRAZOLE 40 MG/10 ML VIAL IV SCH (09:31)
[2023-01-27] MEDS: HEPARIN SODIUM,PORCINE 5,000 UNIT/ML 1 ML VIAL SQ SCH ×2 (09:32→17:26)
[2023-01-27] MEDS: bisacodyL 5 MG TABLET.DR PO SCH (09:32)
[2023-01-27] MEDS: METOCLOPRAMIDE 5 MG/ML 2 ML VIAL IVP PRN (10:19)
[2023-01-27] MEDS: metroNIDAZOLE-NS PMX 500 MG in SALINE 1 100ML.BAG IVPB SCH ×2 (10:19→17:27)
--- NOTE | 2023-01-27 11:29 | P.PN ---
Subjective Progress Note Date: 01/27/23 Patient is tolerating full liquid diet. Recovering well. Objective - Vital Signs Vital signs: Vital Signs Temp 98.3 F 01/27/23 08:00 Pulse 91 01/27/23 09:30 Resp 16 01/27/23 09:30 BP 128/84 01/27/23 08:00 Pulse Ox 98 01/27/23 08:16 FiO2 Intake & Output 01/26/23 01/27/23 01/27/23 18:59 06:59 18:59 Other: Voiding Method Toilet Toilet Toilet # Voids 3 2 1 # Bowel Movements 3 - Exam Alert and oriented 3. Culpable. Incisions are clean dry and intact. Patient tolerated for liquid diet - Labs CBC & Chem 7: 01/27/23 04:55 01/27/23 04:55 Labs: Abnormal Lab Results - Last 24 Hours (Table) 01/26/23 01/27/23 Range/Units 23:08 04:55 Sodium 135 L (137-145) mmol/L Potassium 2.7 L* (3.5-5.1) mmol/L BUN 3 L (7-17) mg/dL Glucose 109 H (74-99) mg/dL Calcium 7.9 L (8.4-10.2) mg/dL Assessment and Plan Assessment: Postop day #5 expiratory laparotomy with appendectomy Plan: Advance diet
[2023-01-27] MEDS: HYDROmorphone 0.5 MG/0.5 ML SYRINGE IVP PRN ×2 (13:30→21:24)
[2023-01-27] MEDS: amLODIPine 5 MG TAB PO SCH (21:23)
[2023-01-27] MEDS: CHOLECALCIFEROL 25 MCG (1000 IU) TABLET PO SCH (21:23)
[2023-01-27] MEDS: AMITRIPTYLINE HCL 25 MG TAB PO SCH (21:23)
--- NOTE | 2023-01-27 21:59 | PN ---
PROGRESS NOTE DATE OF SERVICE: 01/27/2023 SUBJECTIVE: This is a 62-year-old woman who was admitted with abdominal pain and fecal impaction, constipation, had surgery. No chest pain. No palpitation. OBJECTIVE: VITAL SIGNS: Pulse is 83, blood pressure 116/70, respirations 18. CHEST: Clear to auscultation. CARDIOVASCULAR: S1, S2. ABDOMEN: Soft, status post surgery. LABORATORY DATA: Sodium 130. ASSESSMENT: 1. Severe fecal impaction, abdominal pain, status post exploratory laparotomy, fecal disimpaction, appendectomy. 2. Hypokalemia. 3. History of coronary artery disease. 4. Hypertension. 5. Hyperlipidemia. RECOMMENDATIONS AND DISCUSSION: I recommend to continue current medications. Continue symptomatic treatment. Otherwise, continue to monitor. Repeat labs. Potassium is replaced. Advance diet per Surgery. Further recommendations to follow. MMODL / IJN: [id number] /
[2023-01-28] MEDS: ACETAMINOPHEN IV (For NPO) 1,000 MG in EMPTY BAG 1 BAG IVPB SCH ×3 (00:21→12:13)
[2023-01-28] MEDS: HEPARIN SODIUM,PORCINE 5,000 UNIT/ML 1 ML VIAL SQ SCH ×4 (00:22→23:41)
[2023-01-28] MEDS: HYDROmorphone 0.5 MG/0.5 ML SYRINGE IVP PRN ×2 (01:04→12:12)
[2023-01-28] MEDS: metroNIDAZOLE-NS PMX 500 MG in SALINE 1 100ML.BAG IVPB SCH ×4 (01:04→23:42)
[2023-01-28 07:54] LABS: Basophils % (A) 0 %; Eosinophils # (A) 0.3 k/uL (0-0.7); Eosinophils % (A) 4 %; HCT 36.3 % (34.0-46.0); HGB 11.9 gm/dL (11.4-16.0); Lymphocytes # (A) 1.8 k/uL (1.0-4.8); Lymphocytes % (A) 27 %; MCH 31.4 pg (25.0-35.0); MCHC 32.9 g/dL (31.0-37.0); MCV 95.5 fL (80.0-100.0); Mean Platelet Volume 7.8; Monocytes # (A) 0.5 k/uL (0-1.0); Monocytes % (A) 7 %; Neutrophils # (A) 3.9 k/uL (1.3-7.7); Neutrophils % (A) 59 %; Platelet Count 288 k/uL (150-450); RDW 13.5 % (11.5-15.5); WBC 6.6 k/uL (3.8-10.6)
[2023-01-28] MEDS: FLUTICASONE 110 MCG INHALER INHALATION SCH ×2 (08:15→20:41)
[2023-01-28] MEDS: polyethylene glycoL 3350 17 GM POWD.PACK PO SCH ×3 (09:12→20:34)
[2023-01-28] MEDS: MAG HYDROX/AL HYDROX/SIMETH 30 ML, LIDOCAINE VISCOUS 2% 30 ML, diphenhydrAMINE ELIXIR 7... PO SCH ×12 (09:12→20:34)
[2023-01-28] MEDS: PANTOPRAZOLE 40 MG/10 ML VIAL IV SCH (09:12)
[2023-01-28 11:28] LABS: African American GFR (CKD) >90 (>60 ml/min/1.73 sqM); Anion Gap 10 mmol/L; Blood Urea Nitrogen 4 mg/dL (7-17); Calcium 7.9 mg/dL (8.4-10.2); Carbon Dioxide 25 mmol/L (22-30); Chloride 101 mmol/L (98-107); Glucose 88 mg/dL (74-99); Non-African American GFR(CKD) >90 (>60 ml/min/1.73 sqM); Sodium 136 mmol/L (137-145)
--- NOTE | 2023-01-28 11:47 | P.PN ---
Subjective Progress Note Date: 01/27/23 Principal diagnosis: Reason for follow-up is leukocytosis and hepatitis B antibodies positive Patient is a 62-year-old female with a past medical history significant for COPD asthma fibromyalgia hypertension hyperlipidemia patient presenting to the ER for evaluation of abdominal pain and constipation x 3 weeks patient did have CT abdominal pelvis which was marked amount of stool burden throughout the colon also noticed to have elevated white count patient subsequen tly was taken to the OR s/p exploratory laparotomy fecal disimpaction and appendectomy no mention of any bowel perforation and no cultures were done. On today's evaluation that is 01/27/2023, the patient continues to be afebrile the patient is breathing comfortably on room air no chest pain shortness of breath or cough abdominal pain is currently controlled denies any nausea no vomiting no bowel movement. The patient did have a white count of 8.5, creatinine 0.59 Objective - Vital Signs Vital signs: Vital Signs Temp 98.3 F 01/27/23 08:00 Pulse 91 01/27/23 09:30 Resp 16 01/27/23 09:30 BP 128/84 01/27/23 08:00 Pulse Ox 98 01/27/23 08:16 FiO2 Intake & Output 01/26/23 01/27/23 01/27/23 18:59 06:59 18:59 Other: Voiding Method Toilet Toilet Toilet # Voids 3 2 1 # Bowel Movements 3 - Exam GENERAL DESCRIPTION: Middle-aged female up in bed in no distress RESPIRATORY SYSTEM: Unlabored breathing , decreased breath sounds at bases HEART: S1 S2 regular rate and rhythm , ABDOMEN: Soft , no tenderness EXTREMITIES: No edema feet - Labs CBC & Chem 7: 01/28/23 06:44 01/28/23 06:44 Labs: Abnormal Lab Results - Last 24 Hours (Table) 01/26/23 01/27/23 Range/Units 23:08 04:55 Sodium 135 L (137-145) mmol/L Potassium 2.7 L* (3.5-5.1) mmol/L BUN 3 L (7-17) mg/dL Glucose 109 H (74-99) mg/dL Calcium 7.9 L (8.4-10.2) mg/dL Assessment and Plan (1) Hepatitis B Current Visit: Yes Status: Acute Code(s): B19.10 - UNSPECIFIED VIRAL HEPATITIS B WITHOUT HEPATIC COMA SNOMED Code(s): 70061976 (2) Leukocytosis Current Visit: Yes Status: Acute Code(s): D72.829 - ELEVATED WHITE BLOOD CELL COUNT, UNSPECIFIED SNOMED Code(s): 936372038 (3) Penicillin allergy Current Visit: Yes Status: Acute Code(s): Z88.0 - ALLERGY STATUS TO PENICILLIN SNOMED Code(s): 25107616 Plan: 1patient with presentation to hospital abdominal pain and constipation in this patient who did not have any bowel movement for 3 weeks patient noticed to have a significant elevated white count with mild distention of the colon on the CT more likely related to the fecal stasis and likely need to cover for enteric gram-negative both aerobes and anaerobes 2-penicillin allergy that will limit the number of antibiotics safe to use -3the patient white count has normalized we will carry patient Rocephin and Flagyl transitioned over antibiotics once the patient did improvement in her bowel activity. 4 -the patient have a positive hepatitis Bc IgM positive with a question of acute infection patient seem to have cleared her viremia as the patient did have a negative hepatitis B virus DNA, also have a negative hepatitis B surface antigen and negative hepatitis Be antigen and antibodies Dictation was produced using [employer] dictation software. please excuse any grammatical, word or spelling errors. Time with Patient: Less than 30
--- NOTE | 2023-01-28 11:49 | P.PN ---
Subjective Progress Note Date: 01/28/23 Principal diagnosis: Reason for follow-up is leukocytosis and hepatitis B antibodies positive Patient is a 62-year-old female with a past medical history significant for COPD asthma fibromyalgia hypertension hyperlipidemia patient presenting to the ER for evaluation of abdominal pain and constipation x 3 weeks patient did have CT abdominal pelvis which was marked amount of stool burden throughout the colon also noticed to have elevated white count patient subsequen tly was taken to the OR s/p exploratory laparotomy fecal disimpaction and appendectomy no mention of any bowel perforation and no cultures were done. On today's evaluation that is 01/28/2023, the patient denies any fever or any chills, the patient is breathing comfortably on room air no chest pain shortness of breath, patient mention she did have episode of coughing spells and subsequently she has noticed some swelling to the middle part of the abdominal denies any pain to the area no nausea no vomiting did have bowel movement Patient did have white count of 6.6, creatinine 0.53 Objective - Vital Signs Vital signs: Vital Signs Temp 97.8 F 01/28/23 09:10 Pulse 82 01/28/23 09:10 Resp 16 01/28/23 09:10 BP 130/82 01/28/23 09:10 Pulse Ox 96 01/28/23 09:10 FiO2 Intake & Output 01/27/23 01/28/23 01/28/23 18:59 06:59 18:59 Intake Total 180 540 180 Balance 180 540 180 Intake: Oral 180 540 180 Other: Voiding Method Toilet Toilet Toilet # Voids 2 2 1 # Bowel Movements 1 - Exam GENERAL DESCRIPTION: Middle-aged female up in bed in no distress RESPIRATORY SYSTEM: Unlabored breathing , decreased breath sounds at bases HEART: S1 S2 regular rate and rhythm , ABDOMEN: Soft , no tenderness EXTREMITIES: No edema feet - Labs CBC & Chem 7: 01/28/23 06:44 01/28/23 06:44 Labs: Abnormal Lab Results - Last 24 Hours (Table) 01/28/23 Range/Units 06:44 Sodium 136 L (137-145) mmol/L Potassium 3.0 L (3.5-5.1) mmol/L BUN 4 L (7-17) mg/dL Calcium 7.9 L (8.4-10.2) mg/dL Microbiology - Last 24 Hours (Table) 01/22/23 17:21 Blood Culture - Final Blood Assessment and Plan (1) Hepatitis B Current Visit: Yes Status: Acute Code(s): B19.10 - UNSPECIFIED VIRAL HEPATITIS B WITHOUT HEPATIC COMA SNOMED Code(s): 25702226 (2) Leukocytosis Current Visit: Yes Status: Acute Code(s): D72.829 - ELEVATED WHITE BLOOD CELL COUNT, UNSPECIFIED SNOMED Code(s): 407852521 (3) Penicillin allergy Current Visit: Yes Status: Acute Code(s): Z88.0 - ALLERGY STATUS TO PENICILLIN SNOMED Code(s): 09897826 Plan: 1patient with presentation to hospital abdominal pain and constipation in this patient who did not have any bowel movement for 3 weeks patient noticed to have a significant elevated white count with mild distention of the colon on the CT more likely related to the fecal stasis and likely need to cover for enteric gram-negative both aerobes and anaerobes 2-penicillin allergy that will limit the number of antibiotics safe to use 3the patient have a positive hepatitis Bc IgM positive with a question of acute infection patient seem to have cleared her viremia as the patient did have a negative hepatitis B virus DNA, also have a negative hepatitis B surface antigen and negative hepatitis Be antigen and antibodies 4-the patient white count has normalized , patient did have an episode of coughing spell and concern for possible incisional hernia surgery to reevaluate and abdomen for now continue with Rocephin and Flagyl and monitor clinical course closely Dictation was produced using [employer] dictation software. please excuse any grammatical, word or spelling errors.
--- NOTE | 2023-01-28 11:58 | PN ---
PROGRESS NOTE DATE OF SERVICE: 01/28/2023 SUBJECTIVE: This 62-year-old woman admitted after surgery, had distention and complaining of abdominal difficulties. The patient also had some problems with diarrhea also. No chest pain, no palpitation. OBJECTIVE: VITAL SIGNS: Pulse is 82, blood pressure 130/80, respirations 16. CHEST: Clear to auscultation. CARDIOVASCULAR: S1, S2. ABDOMEN: Soft, mild distention, bowel sounds present. LABORATORY DATA: Reviewed. ASSESSMENT: 1. Severe fecal impaction, abdominal pain, status post exploratory laparotomy, fecal disimpaction and appendectomy. 2. Hypokalemia. 3. History of CAD. 4. Hypertension. 5. Hyperlipidemia. RECOMMENDATIONS: Recommended to continue current management, continue symptomatic treatment, otherwise closely follow with surgery. Guarded prognosis. Further recommendations to follow. MMODL / IJN: [id number] /
--- NOTE | 2023-01-28 15:18 | P.PN ---
Subjective Progress Note Date: 01/28/23 CHIEF COMPLAINT: Abdominal pain HISTORY OF PRESENT ILLNESS: The patient is a 62-year-old female who is status post appendectomy with disimpaction. She had a cough and reported expected pain along incision. She is tolerating regular diet. She is passing flatus. ROS: No reports of nausea and vomiting. No bowel movements. No fevers or chills. No new chest pain. No productive sputum PHYSICAL EXAM: VITAL SIGNS: Reviewed CONSTITUTIONAL: Well developed and in no acute distress. EYES: Conjuctivae without sclera icterus. Extraocular movements grossly intact. HEAD, EARS, NOSE, THROAT: Moist buccal mucosa. Head is atraumatic, normocephalic. Hears conversational speech. No nasal drainage. RESPIRATORY: Non-labored respirations and equal bilateral excursions. CARDIOVASCULAR: Palpable 2+ radial pulses. ABDOMEN: No moderate hematoma. Minimal bruising. No infection. Incision is clean dry and intact. MUSCULOSKELETAL: No gross deformity of the lower extremities noted. No clubbing. No cyanosis. SKIN: Good skin turgor. Well perfused. NEUROLOGIC: Cranial nerves II through XII grossly intact. No focal or lateralizing signs. PSYCH: Appropriate affect. Alert and oriented to person, place and time. CLINICAL LABS: Reviewed. Potassium low 3.0, hyporkalemic ASSESSMENT: 1. Fecal impaction 2. Hypokalemia PLAN: 1. Okay for discharge with follow up with Dr Copeland Objective - Vital Signs Vital signs: Vital Signs Temp 97.8 F 01/28/23 09:10 Pulse 82 01/28/23 09:10 Resp 16 01/28/23 09:10 BP 130/82 01/28/23 09:10 Pulse Ox 96 01/28/23 09:10 FiO2 Intake & Output 01/27/23 01/28/23 01/28/23 18:59 06:59 18:59 Intake Total 180 540 180 Balance 180 540 180 Intake: Oral 180 540 180 Other: Voiding Method Toilet Toilet Toilet # Voids 2 2 1 # Bowel Movements 1 - Labs CBC & Chem 7: 01/28/23 06:44 01/28/23 06:44 Labs: Abnormal Lab Results - Last 24 Hours (Table) 01/28/23 Range/Units 06:44 Sodium 136 L (137-145) mmol/L Potassium 3.0 L (3.5-5.1) mmol/L BUN 4 L (7-17) mg/dL Calcium 7.9 L (8.4-10.2) mg/dL Microbiology - Last 24 Hours (Table) 01/22/23 17:21 Blood Culture - Final Blood
[2023-01-28] MEDS: HYDROcodone/APAP 5-325MG 1 EACH TAB PO PRN ×2 (18:06→23:41)
[2023-01-28] MEDS: amLODIPine 5 MG TAB PO SCH (20:34)
[2023-01-28] MEDS: CHOLECALCIFEROL 25 MCG (1000 IU) TABLET PO SCH (20:34)
[2023-01-28] MEDS: AMITRIPTYLINE HCL 25 MG TAB PO SCH (20:34)
[2023-01-28] MEDS: ACETAMINOPHEN TAB 500 MG TAB PO PRN (20:54)
[2023-01-29] MEDS: ONDANSETRON 4 MG/2 ML VIAL IVP PRN (07:06)
[2023-01-29] MEDS: FLUTICASONE 110 MCG INHALER INHALATION SCH ×2 (08:28→21:08)
[2023-01-29] MEDS: HEPARIN SODIUM,PORCINE 5,000 UNIT/ML 1 ML VIAL SQ SCH ×3 (09:19→23:53)
[2023-01-29] MEDS: PANTOPRAZOLE 40 MG/10 ML VIAL IV SCH (09:19)
[2023-01-29] MEDS: MAG HYDROX/AL HYDROX/SIMETH 30 ML, LIDOCAINE VISCOUS 2% 30 ML, diphenhydrAMINE ELIXIR 7... PO SCH ×12 (09:20→20:57)
[2023-01-29] MEDS: polyethylene glycoL 3350 17 GM POWD.PACK PO SCH ×3 (09:20→20:48)
[2023-01-29] MEDS: ACETAMINOPHEN TAB 500 MG TAB PO PRN ×2 (09:26→17:34)
[2023-01-29] MEDS: metroNIDAZOLE-NS PMX 500 MG in SALINE 1 100ML.BAG IVPB SCH ×3 (09:27→23:53)
[2023-01-29 12:38] LABS: African American GFR (CKD) >90 (>60 ml/min/1.73 sqM); Anion Gap 8 mmol/L; Blood Urea Nitrogen 4 mg/dL (7-17); Calcium 7.9 mg/dL (8.4-10.2); Carbon Dioxide 24 mmol/L (22-30); Chloride 103 mmol/L (98-107); Glucose 103 mg/dL (74-99); Non-African American GFR(CKD) >90 (>60 ml/min/1.73 sqM); Potassium 2.9 mmol/L (3.5-5.1); Sodium 135 mmol/L (137-145)
[2023-01-29] MEDS ORDERED: Magnesium Replacement Protocol 1 EACH MISC MISCELLANE PRN (13:30)
[2023-01-29] MEDS ORDERED: Potassium Replacement Protocol 1 EACH MISC MISCELLANE PRN (13:30)
[2023-01-29] MEDS: POTASSIUM CHLORIDE ER 10 MEQ TAB.ER.PRT PO SCH ×2 (13:56→20:52)
[2023-01-29] MEDS: POTASSIUM CHLORIDE ER 20 MEQ TAB.ER PO SCH ×3 (13:56→16:52)
[2023-01-29] MEDS: HYDROcodone/APAP 5-325MG 1 EACH TAB PO PRN (13:58)
--- NOTE | 2023-01-29 18:30 | P.PN ---
Subjective Progress Note Date: 01/29/23 CHIEF COMPLAINT: Abdominal pain HISTORY OF PRESENT ILLNESS: The patient is a 62-year-old female who is status post appendectomy with disimpaction. She stayed due to low potassium. She is tolerating diet. ROS: No reports of nausea and vomiting. No fevers or chills. No new chest pain. No productive sputum PHYSICAL EXAM: VITAL SIGNS: Reviewed CONSTITUTIONAL: Well developed and in no acute distress. EYES: Conjuctivae without sclera icterus. Extraocular movements grossly intact. HEAD, EARS, NOSE, THROAT: Moist buccal mucosa. Head is atraumatic, normocephalic. Hears conversational speech. No nasal drainage. RESPIRATORY: Non-labored respirations and equal bilateral excursions. CARDIOVASCULAR: Palpable 2+ radial pulses. ABDOMEN: No infection. MUSCULOSKELETAL: No gross deformity of the lower extremities noted. No clubbing. No cyanosis. SKIN: Good skin turgor. Well perfused. NEUROLOGIC: Cranial nerves II through XII grossly intact. No focal or lateralizing signs. PSYCH: Appropriate affect. Alert and oriented to person, place and time. CLINICAL LABS: Reviewed. Potassium low 2.9 ASSESSMENT: 1. Fecal impaction 2. Hypokalemia PLAN: 1. Correction of low potassium in progress 2. May need correction of magnesium for refractory hypokalemia Objective - Vital Signs Vital signs: Vital Signs Temp 98.2 F 01/29/23 16:00 Pulse 96 01/29/23 16:00 Resp 16 01/29/23 16:00 BP 122/70 01/29/23 16:00 Pulse Ox 96 01/29/23 12:00 FiO2 Intake & Output 01/28/23 01/29/23 01/29/23 18:59 06:59 18:59 Intake Total 180 240 360 Balance 180 240 360 Intake: Oral 180 240 360 Other: Voiding Method Toilet Toilet Toilet # Voids 1 2 2 # Bowel Movements 3 - Labs CBC & Chem 7: 01/28/23 06:44 01/29/23 11:56 Labs: Abnormal Lab Results - Last 24 Hours (Table) 01/29/23 Range/Units 11:56 Sodium 135 L (137-145) mmol/L Potassium 2.9 L (3.5-5.1) mmol/L BUN 4 L (7-17) mg/dL Creatinine 0.45 L (0.52-1.04) mg/dL Glucose 103 H (74-99) mg/dL Calcium 7.9 L (8.4-10.2) mg/dL
[2023-01-29 18:40] LABS: Potassium 3.7 mmol/L (3.5-5.1)
[2023-01-29] MEDS: AMITRIPTYLINE HCL 25 MG TAB PO SCH (20:47)
[2023-01-29] MEDS: amLODIPine 5 MG TAB PO SCH (20:47)
[2023-01-29] MEDS: CHOLECALCIFEROL 25 MCG (1000 IU) TABLET PO SCH (20:48)
[2023-01-29] MEDS: HYDROmorphone 0.5 MG/0.5 ML SYRINGE IVP PRN (20:48)
--- NOTE | 2023-01-29 21:22 | PN ---
PROGRESS NOTE DATE OF SERVICE: 01/29/2023 SUBJECTIVE: This 62-year-old woman admitted after surgery, is being closely monitored. The patient has some abdominal difficulties yesterday. The patient has minimal tachycardia. PAST MEDICAL HISTORY: Reviewed. REVIEW OF SYSTEMS: A 14-point review is negative. CURRENT MEDICATIONS: Reviewed. PHYSICAL EXAMINATION: VITAL SIGNS: Pulse is 112, blood pressure 119/70, and respirations 16. HEENT: Conjunctivae normal. NECK: No JVD. CARDIOVASCULAR: S1, S2. RESPIRATIONS: A few scattered rhonchi. ABDOMEN: Soft, status post surgery. LABORATORY DATA: Sodium 130. Potassium 2.9. ASSESSMENT: 1. Severe fecal impaction, abdominal pain, status post exploratory laparotomy, fecal disimpaction, and appendectomy. 2. Tachycardia. 3. Severe hypokalemia. 4. History of coronary artery disease. 5. Hypertension. 6. Hyperlipidemia. RECOMMENDATIONS: Recommend to continue current medications. Continue symptomatic treatment. Replace potassium. Repeat potassium. Recheck magnesium also per protocol. Repeat lytes at 5 o'clock today and continue to monitor. Guarded prognosis. Further recommendations to follow. See orders for details. Probably discharge within the next 24 to 48 hours. MMODL / IJN: [id number] /
[2023-01-30] MEDS: ACETAMINOPHEN TAB 500 MG TAB PO PRN ×2 (04:26→13:11)
[2023-01-30] MEDS: FLUTICASONE 110 MCG INHALER INHALATION SCH (08:01)
[2023-01-30 08:11] LABS: Basophils % (A) 0 %; Eosinophils # (A) 0.3 k/uL (0-0.7); Eosinophils % (A) 5 %; HCT 34.6 % (34.0-46.0); HGB 11.3 gm/dL (11.4-16.0); Hypochromasia Slight; Lymphocytes # (A) 1.7 k/uL (1.0-4.8); Lymphocytes % (A) 27 %; MCH 31.3 pg (25.0-35.0); MCHC 32.6 g/dL (31.0-37.0); Mean Platelet Volume 7.5; Monocytes # (A) 0.4 k/uL (0-1.0); Monocytes % (A) 6 %; Neutrophils # (A) 3.7 k/uL (1.3-7.7); Neutrophils % (A) 60 %; Platelet Count 362 k/uL (150-450); WBC 6.2 k/uL (3.8-10.6)
[2023-01-30] MEDS: PANTOPRAZOLE 40 MG/10 ML VIAL IV SCH (08:38)
[2023-01-30] MEDS: POTASSIUM CHLORIDE ER 10 MEQ TAB.ER.PRT PO SCH (08:38)
[2023-01-30] MEDS: metroNIDAZOLE-NS PMX 500 MG in SALINE 1 100ML.BAG IVPB SCH (08:38)
[2023-01-30] MEDS: HEPARIN SODIUM,PORCINE 5,000 UNIT/ML 1 ML VIAL SQ SCH (08:38)
[2023-01-30] MEDS: MAG HYDROX/AL HYDROX/SIMETH 30 ML, LIDOCAINE VISCOUS 2% 30 ML, diphenhydrAMINE ELIXIR 7... PO SCH ×4 (08:41)
[2023-01-30] MEDS: polyethylene glycoL 3350 17 GM POWD.PACK PO SCH (10:24)
[2023-01-30 10:40] VITALS: PULSE 86; RESP 18
[2023-01-30 10:51] LABS: ALT 45 U/L (4-34); AST 47 U/L (14-36); African American GFR (CKD) >90 (>60 ml/min/1.73 sqM); Albumin 2.6 g/dL (3.5-5.0); Alkaline Phosphatase 104 U/L (38-126); Anion Gap 9 mmol/L; Blood Urea Nitrogen 6 mg/dL (7-17); Calcium 8.2 mg/dL (8.4-10.2); Carbon Dioxide 23 mmol/L (22-30); Chloride 105 mmol/L (98-107); Glucose 106 mg/dL (74-99); Magnesium 1.9 mg/dL (1.6-2.3); Non-African American GFR(CKD) >90 (>60 ml/min/1.73 sqM); Potassium 3.7 mmol/L (3.5-5.1); Sodium 137 mmol/L (137-145); Total Bilirubin 0.2 mg/dL (0.2-1.3); Total Protein 4.9 g/dL (6.3-8.2)
[2023-01-30] MEDS ORDERED: MAGNESIUM SULFATE-D5W PMX 1 GM in DEXTROSE/WATER 1 100ML.BAG IVPB ONE (10:56)
[2023-01-30] MEDS ORDERED: POTASSIUM CHLORIDE ER 20 MEQ TAB.ER PO SCH (11:00)
--- NOTE | 2023-01-30 12:02 | P.PN ---
Subjective Progress Note Date: 01/30/23 Principal diagnosis: Reason for follow-up is leukocytosis and hepatitis B antibodies positive Patient is a 62-year-old female with a past medical history significant for COPD asthma fibromyalgia hypertension hyperlipidemia patient presenting to the ER for evaluation of abdominal pain and constipation x 3 weeks patient did have CT abdominal pelvis which was marked amount of stool burden throughout the colon also noticed to have elevated white count patient subsequen tly was taken to the OR s/p exploratory laparotomy fecal disimpaction and appendectomy no mention of any bowel perforation and no cultures were done. On today's evaluation that is 01/30/2023 patient continues to be afebrile, the patient is breathing comfortably room air no need for supplemental oxygen the patient denies any chest pain shortness of the cough no nausea vomiting no abdominal pain and did have multiple bowel movements, the patient is feeling better wants to go home Patient white count 6.2, creatinine 0.49 Objective - Vital Signs Vital signs: Vital Signs Temp 97.9 F 01/30/23 04:37 Pulse 95 01/30/23 08:00 Resp 16 01/30/23 08:00 BP 115/75 01/30/23 04:37 Pulse Ox 95 01/30/23 04:37 FiO2 Intake & Output 01/29/23 01/30/23 01/30/23 18:59 06:59 18:59 Intake Total 360 0 118 Balance 360 0 118 Intake: Oral 360 0 118 Other: Voiding Method Toilet Toilet Toilet # Voids 2 2 # Bowel Movements 1 - Exam GENERAL DESCRIPTION: Middle-aged female up in bed in no distress RESPIRATORY SYSTEM: Unlabored breathing , decreased breath sounds at bases HEART: S1 S2 regular rate and rhythm , ABDOMEN: Soft , no tenderness EXTREMITIES: No edema feet - Labs CBC & Chem 7: 01/30/23 07:31 01/30/23 07:31 Labs: Abnormal Lab Results - Last 24 Hours (Table) 01/29/23 01/30/23 Range/Units 11:56 07:31 RBC 3.60 L (3.80-5.40) m/uL Hgb 11.3 L (11.4-16.0) gm/dL Sodium 135 L (137-145) mmol/L Potassium 2.9 L (3.5-5.1) mmol/L BUN 4 L (7-17) mg/dL Creatinine 0.45 L (0.52-1.04) mg/dL Glucose 103 H (74-99) mg/dL Calcium 7.9 L (8.4-10.2) mg/dL Assessment and Plan (1) Hepatitis B Current Visit: Yes Status: Acute Code(s): B19.10 - UNSPECIFIED VIRAL HEPATITIS B WITHOUT HEPATIC COMA SNOMED Code(s): 91603126 (2) Leukocytosis Current Visit: Yes Status: Acute Code(s): D72.829 - ELEVATED WHITE BLOOD CELL COUNT, UNSPECIFIED SNOMED Code(s): 105162358 (3) Penicillin allergy Current Visit: Yes Status: Acute Code(s): Z88.0 - ALLERGY STATUS TO PENICILLIN SNOMED Code(s): 63588664 Plan: 1patient with presentation to hospital abdominal pain and constipation in this patient who did not have any bowel movement for 3 weeks patient noticed to have a significant elevated white count with mild distention of the colon on the CT more likely related to the fecal stasis and likely need to cover for enteric g alessio-negative both aerobes and anaerobes 2-penicillin allergy that will limit the number of antibiotics safe to use 3the patient have a positive hepatitis Bc IgM positive with a question of acute infection patient seem to have cleared her viremia as the patient did have a negative hepatitis B virus DNA, also have a negative hepatitis B surface antigen and negative hepatitis Be antigen and antibodies, Patient has been advised recheck of hepatitis B surface antibodies 6 weeks from now to make sure she has developed antibodies if not she may need to be vaccinated this was explained to the patient in layman terms 4patient remains to be afebrile and the white count is normal consider short course of oral Ceftin and Flagyl on discharge question concern answered Dictation was produced using [employer] dictation software. please excuse any grammatical, word or spelling errors. Time with Patient: Less than 30
--- NOTE | 2023-01-30 12:02 | P.PN ---
Subjective Progress Note Date: 01/29/23 Principal diagnosis: Reason for follow-up is leukocytosis and hepatitis B antibodies positive Patient is a 62-year-old female with a past medical history significant for COPD asthma fibromyalgia hypertension hyperlipidemia patient presenting to the ER for evaluation of abdominal pain and constipation x 3 weeks patient did have CT abdominal pelvis which was marked amount of stool burden throughout the colon also noticed to have elevated white count patient subsequen tly was taken to the OR s/p exploratory laparotomy fecal disimpaction and appendectomy no mention of any bowel perforation and no cultures were done. On today's evaluation that is 01/29/2023 the patient remains to be afebrile the patient is breathing comfortably on room air no chest pain shortness of breath or cough no nausea vomiting no abdominal pain did have multiple bowel movements Patient did have a creatinine 0.45 potassium is 3.7 Objective - Vital Signs Vital signs: Vital Signs Temp 97.6 F 01/29/23 08:00 Pulse 112 H 01/29/23 08:00 Resp 16 01/29/23 08:00 BP 119/75 01/29/23 08:00 Pulse Ox 93 L 01/29/23 08:00 FiO2 Intake & Output 01/28/23 01/29/23 01/29/23 18:59 06:59 18:59 Intake Total 180 240 180 Balance 180 240 180 Intake: Oral 180 240 180 Other: Voiding Method Toilet Toilet Toilet # Voids 1 2 # Bowel Movements 3 - Exam GENERAL DESCRIPTION: Middle-aged female up in bed in no distress RESPIRATORY SYSTEM: Unlabored breathing , decreased breath sounds at bases HEART: S1 S2 regular rate and rhythm , ABDOMEN: Soft , no tenderness EXTREMITIES: No edema feet - Labs CBC & Chem 7: 01/30/23 07:31 01/30/23 07:31 Labs: Abnormal Lab Results - Last 24 Hours (Table) 01/29/23 Range/Units 11:56 Sodium 135 L (137-145) mmol/L Potassium 2.9 L (3.5-5.1) mmol/L BUN 4 L (7-17) mg/dL Creatinine 0.45 L (0.52-1.04) mg/dL Glucose 103 H (74-99) mg/dL Calcium 7.9 L (8.4-10.2) mg/dL Assessment and Plan (1) Hepatitis B Current Visit: Yes Status: Acute Code(s): B19.10 - UNSPECIFIED VIRAL HEPATITIS B WITHOUT HEPATIC COMA SNOMED Code(s): 84445852 (2) Leukocytosis Current Visit: Yes Status: Acute Code(s): D72.829 - ELEVATED WHITE BLOOD CELL COUNT, UNSPECIFIED SNOMED Code(s): 226688033 (3) Penicillin allergy Current Visit: Yes Status: Acute Code(s): Z88.0 - ALLERGY STATUS TO PENICILLIN SNOMED Code(s): 56449075 Plan: 1patient with presentation to hospital abdominal pain and constipation in this patient who did not have any bowel movement for 3 weeks patient noticed to have a significant elevated white count with mild distention of the colon on the CT more likely related to the fecal stasis and likely need to cover for enteric gram-negative both aerobes and anaerobes 2-penicillin allergy that will limit the number of antibiotics safe to use 3the patient have a positive hepatitis Bc IgM positive with a question of acute infection patient seem to have cleared her viremia as the patient did have a negative hepatitis B virus DNA, also have a negative hepatitis B surface antigen and negative hepatitis Be antigen and antibodies 4patient white count has normalized remains to be afebrile she is currently on Rocephin and Flagyl recommend a short course of oral Ceftin and Flagyl on discha rge Dictation was produced using [employer] dictation software. please excuse any grammatical, word or spelling errors. Time with Patient: Less than 30
[2023-01-30 13:27] VITALS: BP 118/74; TEMP 97.1
--- NOTE | 2023-01-31 09:14 | P.DS ---
Providers Date of admission: 01/21/23 14:13 Expected date of discharge: 01/30/23 Attending physician: Thomas Roque MD Consults: 01/21/23 14:12 Consult Physician Routine Consulting Provider: Sacha Copeland Consult Reason/Comments: abp, constipation Do you want consulting provider notified?: Yes 01/22/23 09:40 Consult Physician Urgent Consulting Provider: Leigh Palmer Consult Reason/Comments: elevated white blood count, sepsis, uti?? Do you want consulting provider notified?: Yes Primary care physician: Malik Cobb Hospital Course: Final diagnosis Abdominal pain Fecal impaction Severe constipation. Status post exploratory laparotomy, fecal disimpaction and appendectomy. On 01/22/2023 Tachycardia severe Hypokalemia, improved History of coronary artery disease Hypertension Hyperlipidemia History of irritable bowel syndrome Hepatitis B core IgM antibody positive. Discharge disposition Patient is being discharged in a stable condition with guarded prognosis to home. Patient will follow-up with Dr. Cobb in the outpatient setting upon discharge. Patient is to continue with oral antibiotics in the form of Ceftin and Flagyl for the next 1 week and close outpatient follow-up with general surgery as scheduled. Total time taken is greater than 35 minutes. Hospital course This is a 62-year-old female who was recently admitted with abdominal pain found to have severe fecal impaction with constipation and is status post expiratory laparotomy with fecal disimpaction and appendectomy. Patient being followed by general surgery along with infectious disease and reports to feeling improved and asking when she can go home. Patient has been cleared by consultations and will continue short course of Ceftin and Flagyl on discharge with close outpatient follow-up. Patient has been encouraged to continue soft foods heart healthy and slowly advance as tolerated once evaluated by general surgery. Prescriptions provided for repeat labs as well to monitor electrolytes. Please refer to other consultation notes for further HPI. Currently no reports of chest pain, shortness of breath, or palpitations. Patient is afebrile. No reports of nausea or vomiting and patient is tolerating diet. Patient will be discharged home today. Guarded prognosis Physical exam: Gen: This is a 62-year-old female who is awake, alert and oriented 3, well-developed, well-nourished HEENT: Head is atraumatic, normocephalic. Pupils equal, round. Sclerae is anicteric. NECK: Supple. No JVD. No lymphadenopathy. No thyromegaly. LUNGS: Clear to auscultation. No wheezes or rhonchi. No intercostal retractions. HEART: Regular rate and rhythm. No murmur. ABDOMEN: Soft. Bowel sounds are present. No masses. Mild tenderness noted of the lower abdomen on palpation. EXTREMITIES: No pedal edema. No calf tenderness. NEUROLOGICAL: Patient is awake, alert and oriented x3. Cranial nerves 2 through 12 are grossly intact. Please refer to medication reconciliation sheet for a list of medications. The impression and plan of care has been dictated by Rowan Krause, Nurse Practitioner as directed. Dr. Chaim MD I have performed a history and examination and MDM of this patient, discussed the same with the dictator, and agree with the dictator's assessment and plan as written ,documented as a scribe. Based on total visit time, I have performed more than 50% of the visit. Patient Condition at Discharge: Fair Plan - Discharge Summary New Discharge Prescriptions: New Potassium Chloride ER [K-Dur 10] 20 meq PO BID #60 tab cefUROXime axetiL [Ceftin] 500 mg PO BID 7 Days #14 tab metroNIDAZOLE [Flagyl] 500 mg PO TID 7 Days #21 tab Acetaminophen Tab [Tylenol] 1,000 mg PO Q8HR PRN tab PRN Reason: Fever And/ Or Pain Continue Nitroglycerin Sl Tabs [Nitrostat] 0.4 mg SUBLINGUAL Q5M PRN #25 tab PRN Reason: Chest Pain Albuterol Sulfate [Proair Hfa] 1 - 2 puff INHALATION RT-Q6H PRN PRN Reason: Shortness Of Breath Fluticasone Propionate 110 Mcg [Flovent 110 Mcg Inhaler] 1 puff INHALATION RT-BID Aspirin/Acetaminophen/Caffeine [Excedrin Migraine Caplet] 1 tab PO Q6H PRN PRN Reason: Migraine Headache polyethylene glycoL 3350 [Miralax] 17 gm PO DAILY PRN PRN Reason: Constipation amLODIPine [Norvasc] 5 mg PO HS Clopidogrel [Plavix] 75 mg PO HS Cholecalciferol [Vitamin D3 (25 Mcg = 1000 Iu)] 50 mcg PO HS Rosuvastatin Calcium [Crestor] 40 mg PO HS Amitriptyline HCl [Elavil] 25 mg PO HS Changed methocarbamoL [Robaxin] 500 mg PO QID PRN #0 PRN Reason: Muscle Pain Discharge Medication List Nitroglycerin Sl Tabs [Nitrostat] 0.4 mg SUBLINGUAL Q5M PRN #25 tab 10/19/17 [Rx] Albuterol Sulfate [Proair Hfa] 1 - 2 puff INHALATION RT-Q6H PRN 08/20/18 [History] Amitriptyline HCl [Elavil] 25 mg PO HS 01/21/23 [History] Aspirin/Acetaminophen/Caffeine [Excedrin Migraine Caplet] 1 tab PO Q6H PRN 01/21/23 [History] Cholecalciferol [Vitamin D3 (25 Mcg = 1000 Iu)] 50 mcg PO HS 01/21/23 [History] Clopidogrel [Plavix] 75 mg PO HS 01/21/23 [History] Fluticasone Propionate 110 Mcg [Flovent 110 Mcg Inhaler] 1 puff INHALATION RT- BID 01/21/23 [History] Rosuvastatin Calcium [Crestor] 40 mg PO HS 01/21/23 [History] amLODIPine [Norvasc] 5 mg PO HS 01/21/23 [History] polyethylene glycoL 3350 [Miralax] 17 gm PO DAILY PRN 01/21/23 [History] Acetaminophen Tab [Tylenol] 1,000 mg PO Q8HR PRN tab 01/30/23 [Rx] Potassium Chloride ER [K-Dur 10] 20 meq PO BID #60 tab 01/30/23 [Rx] cefUROXime axetiL [Ceftin] 500 mg PO BID 7 Days #14 tab 01/30/23 [Rx] methocarbamoL [Robaxin] 500 mg PO QID PRN #0 01/30/23 [Rx] metroNIDAZOLE [Flagyl] 500 mg PO TID 7 Days #21 tab 01/30/23 [Rx] Follow up Appointment(s)/Referral(s): Sacha Copeland MD [Medical Doctor] - 02/01/23 9:10 am Malik Cobb [Primary Care Provider] - 02/02/23 9:15 am Ambulatory/Diagnostic Orders: Complete Blood Count w/diff [LAB.AMB] Time Frame: 3 Days, Location: None Selected Miscellaneous Lab Order [LAB.AMB] Location: None Selected Patient Instructions/Handouts: Constipation (DC), Open Appendectomy (DC) Activity/Diet/Wound Care/Special Instructions: Activity Limited until follow-up Follow-up with primary care provider on discharge Repeat labs in 2-3 days to monitor kidney functions and electrolytes Continue antibiotics for 1 week to complete the course Follow-up Gen. surgery and outpatient one week Continue heart healthy soft food diet until follow-up with general surgery Discharge Disposition: HOME SELF-CARE
== END 2023-01-30 14:41 | disposition home or self-care (01) | DRG 223 ==
LOC: EC 06:59 → 6NMEDSUR 14:13 → OBSVTOIN 14:13 → 6NMEDSUR 15:57 → 3SCARD 01-22 23:59
PROVIDERS: ADMIT Internal Medicine; ATTEND Internal Medicine
PROC: 3E0T3BZ Introduction of Anesthetic Agent into Peripheral Nerves and Plexi, Percutaneous Approach (ICD-10-PCS; 2023-01-22)
PROC: 0WJG0ZZ Inspection of Peritoneal Cavity, Open Approach (ICD-10-PCS; 2023-01-22)
PROC: 0D9670Z Drainage of Stomach with Drainage Device, Via Natural or Artificial Opening (ICD-10-PCS; 2023-01-22)
PROC: 0DCN0ZZ Extirpation of Matter from Sigmoid Colon, Open Approach (ICD-10-PCS; principal; 2023-01-22 09:45)
DX: K38.1 Appendicular concretions (principal); B19.10 Unspecified viral hepatitis B without hepatic coma; K56.41 Fecal impaction; E78.5 Hyperlipidemia, unspecified; J44.89 Other specified chronic obstructive pulmonary disease; I25.10 Atherosclerotic heart disease of native coronary artery without angina pectoris; E87.6 Hypokalemia; K58.1 Irritable bowel syndrome with constipation; K13.79 Other lesions of oral mucosa; R79.89 Other specified abnormal findings of blood chemistry; N39.0 Urinary tract infection, site not specified; M79.7 Fibromyalgia; Z87.891 Personal history of nicotine dependence; Z87.19 Personal history of other diseases of the digestive system; Z95.5 Presence of coronary angioplasty implant and graft; Z88.0 Allergy status to penicillin; Z79.02 Long term (current) use of antithrombotics/antiplatelets; Z79.51 Long term (current) use of inhaled steroids; Z79.899 Other long term (current) drug therapy; Z90.49 Acquired absence of other specified parts of digestive tract; Z80.1 Family history of malignant neoplasm of trachea, bronchus and lung; Z80.0 Family history of malignant neoplasm of digestive organs
CPT/HCPCS: 36415; 64488; 71045; 74177; 74270; 80048; 80051; 80053; 80074; 81001; 82150; 83605; 83690; 83735; 84132; 85025; 85610; 85730; 86707; 86850; 86900; 86901; 87040; 87350; 87517; 88304; 94640; 94760; 96361; 96374; 96375; 96376; 99285

== ENCOUNTER → 2023-02-01 | Outpatient (CLI) | payer OTHER ==
[2023-02-01 15:06] LABS: Basophils # (A) 0.05 X 10*3/uL (0.00-0.10); Basophils % (A) 0.6 %; Eosinophils # (A) 0.21 X 10*3/uL (0.04-0.35); Eosinophils % (A) 2.5 %; HCT 38.3 % (37.2-46.3); HGB 12.3 g/dL (12.0-15.0); Lymphocytes # (A) 1.67 X 10*3/uL (0.90-5.00); Lymphocytes % (A) 19.9 %; MCH 30.8 pg (27.0-32.0); MCHC 32.1 g/dL (32.0-37.0); MCV 95.8 FL (80.0-97.0); Mean Platelet Volume 9.6 FL (9.5-12.2); Monocytes # (A) 0.63 X 10*3/uL (0.20-1.00); Monocytes % (A) 7.5 %; NRBC Per 100 WBC 0 X 10*3/uL (0.00-0.01); Neutrophils # (A) 5.77 X 10*3/uL (1.80-7.70); Neutrophils % (A) 68.7 %; Platelet Count 440 X 10*3/uL (140-440); RDW 15.6 % (11.5-14.5)
[2023-02-01 15:22] LABS: BUN/Creat Ratio 12.62 Ratio (12.00-20.00); Blood Urea Nitrogen 10.1 mg/dL (9.0-27.0); Calcium 9.2 mg/dL (8.7-10.3); Carbon Dioxide 22.5 mmol/L (21.6-31.8); Chloride 105 mmol/L (96-109); Glucose 116 mg/dL (70-110); Magnesium 2.2 mg/dL (1.5-2.4); Potassium 4.9 mmol/L (3.5-5.5); Sodium 140 mmol/L (135-145)
== END | disposition home or self-care (01) ==
LOC: LABWHC1 10:04
PROVIDERS: ATTEND Registered Nurse
DX: D64.9 Anemia, unspecified (principal); E87.6 Hypokalemia
CPT/HCPCS: 36415; 80048; 83735; 85025

== ENCOUNTER → 2023-03-05 | Outpatient (CLI) | payer OTHER ==
--- NOTE | 2023-03-05 18:04 | CT ---
EXAMINATION TYPE: CT chest w con DATE OF EXAM: 03/05/2023 COMPARISON: 07/21/2022 HISTORY: DX with bilateral pulmonary nodules CT DLP: 131.5 mGycm Automated exposure control for dose reduction was used. CONTRAST: CT scan of the chest is performed with IV Contrast, patient injected with 100 cc mL of Isovue 300. FINDINGS: LUNGS: Stable right upper lobe pulmonary nodule measuring 1.40 cm versus previous reported measuremen t of 1.6 x 1.0 cm. Of groundglass density remains unchanged since 1.7 cm no additional nodules seen. No evidence of infiltrate or effusion. Hyperinflation of the lungs compatible with COPD. MEDIASTINUM: There are no greater than 1 cm hilar or mediastinal lymph nodes. No pericardial effusi on is seen. Thoracic aorta is of normal caliber. The heart is not enlarged. UPPER ABDOMEN: No significant abnormality appreciated. OTHER: No additional significant abnormality is seen. IMPRESSION: 1. Stable right upper lobe pulmonary nodule. Malignancy is not excluded. Continued short-term follow- up recommended in 3-4 months. 2. Stable groundglass nodule left upper lobe.
== END | disposition home or self-care (01) ==
LOC: RADCTMAIN 15:52
PROVIDERS: ATTEND Family Medicine
DX: R91.8 Other nonspecific abnormal finding of lung field (principal)
CPT/HCPCS: 71260; Q9967

== ENCOUNTER → 2023-03-05 | Outpatient (CLI) | payer OTHER | END | disposition home or self-care (01) | LOC: LABWHC1 16:19 | PROVIDERS: ATTEND Family Medicine | DX: E87.6 Hypokalemia (principal) | CPT/HCPCS: 36415; 84132 ==

== ENCOUNTER 2023-06-26 10:15 | Day surgery (SDC) | payer OTHER ==
[2023-06-21 10:14] VITALS: BMI 22.3
[~2023-06-26 10:15] MED LIST changes: -LACTATED RINGERS 1,000 ML IV SCH; +LIDOCAINE 1% (10MG/ML) FOR IV START INTRADERMA PRN; -MOXIFLOXACIN HCL 0.5% DROPS 3 ML BTL OP ONE; -TETRACAINE 0.5% OPHTH (PF) DROPS 4 ML BTL OP ONE; -TIMOLOL 0.5% OPHTH DROPS 5 ML BTL OP ONE
[2023-06-26] MEDS: LACTATED RINGERS 1,000 ML IV SCH (10:51)
[2023-06-26] MEDS ORDERED: PROPOFOL 10 MG/ML 20 ML VIAL IV ONE (10:58)
--- NOTE | 2023-06-26 11:06 | P.GSHP ---
History of Present Illness H&P Date: 06/26/23 Chief Complaint: Change in bowel habits 63-year-old female here for colonoscopy. Patient underwent exploratory laparotomy for colonic obstruction secondary to severe constipation in January. Still having intermittent constipation issues despite taking stool softeners. Last colonoscopy 2 to 3 years ago. Past Medical History Past Medical History: Asthma, COPD, Eye Disorder, Fibromyalgia, GERD/Reflux, Hyperlipidemia, Hypertension, Liver Disease Additional Past Medical History / Comment(s): Hiatal hernia, hx colon polyps, IBS, ulcerative colitis, Vitamin D deficiency, hx Hepatitis C, "went away without treatment", glaucoma treated with laser surgery, bilateral lung nodules. History of Any Multi-Drug Resistant Organisms: None Reported Past Surgical History: Bowel Resection, Cholecystectomy, Heart Catheterization With Stent, Tonsillectomy Additional Past Surgical History / Comment(s): D&C, laser surgery for glaucoma - stents in eyes, bilateral cataract surgery with lens implants. Past Anesthesia/Blood Transfusion Reactions: No Reported Reaction Date of Last Stent Placement:: 10/23 Smoking Status: Former smoker - Past Family History Father Family Medical History: Cancer Additional Family Medical History / Comment(s): at age 73 from esophageal cancer. Mother Family Medical History: Cancer, Deep Vein Thrombosis (DVT), Myocardial Infarction (PA) Additional Family Medical History / Comment(s): 1st PA in 40's, at age 68 from lung cancer. Brother(s) Family Medical History: Cancer Additional Family Medical History / Comment(s): She has 2 brothers and one has history of bladder cancer and is a smoker. Sister(s) Additional Family Medical History / Comment(s): Patient has 1 sister with no major medical problems. Daughter(s) Additional Family Medical History / Comment(s): Patient has 1 daughter and 3 sons with no major medical problems. Patient has one niece that has been diagnosed with lupus. Medications and Allergies Home Medications Medication Instructions Recorded Confirmed Type Nitroglycerin Sl Tabs [Nitrostat] 0.4 mg SUBLINGUAL Q5M PRN #25 tab 10/19/17 06/26/23 Rx Albuterol Sulfate [Proair Hfa] 1 - 2 puff INHALATION RT-Q6H PRN 08/20/18 06/26/23 History Amitriptyline HCl [Elavil] 25 mg PO HS 01/21/23 06/26/23 History Aspirin/Acetaminophen/Caffeine 1 tab PO Q6H PRN 01/21/23 06/26/23 History [Excedrin Migraine Caplet] Cholecalciferol [Vitamin D3 (25 50 mcg PO HS 01/21/23 06/26/23 History Mcg = 1000 Iu)] Clopidogrel [Plavix] 75 mg PO HS 01/21/23 06/21/23 History amLODIPine [Norvasc] 5 mg PO HS 01/21/23 06/26/23 History polyethylene glycoL 3350 [Miralax] 17 gm PO DAILY 01/21/23 06/26/23 History methocarbamoL [Robaxin] 500 mg PO QID PRN #0 01/30/23 06/26/23 Rx Allergies Allergy/AdvReac Type Severity Reaction Status Date / Time Penicillins Allergy Unknown Verified 06/21/23 09:36 Childhood Surgical - Exam Physical exam: General: Well-developed, well-nourished HEENT: Normocephalic, sclerae nonicteric Abdomen: Nontender, nondistended Extremities: No edema Neuro: Alert and oriented Assessment and Plan (1) Change in bowel habits Narrative/Plan: Will proceed with colonoscopy at this time. Current Visit: Yes Status: Acute Code(s): R19.4 - CHANGE IN BOWEL HABIT SNOMED Code(s): 44254790
--- NOTE | 2023-06-26 11:22 | P.PCN ---
Date of Procedure: 06/26/23 Procedure(s) Performed: PREOPERATIVE DIAGNOSIS: Change in bowel habits POSTOPERATIVE DIAGNOSIS: Normal exam PROCEDURE: Colonoscopy ANESTHESIA: MAC SURGEON: Sacha Copeland M.D. SPECIMENS: None ENDOSCOPIC PROCEDURE: The patient was placed on the endoscopy table in the left decubitus position. The Olympus colonoscope was inserted into the anus and passed under direct visualization to the base of the cecum. The appendiceal orifice was visualized. From that point the scope was slowly withdrawn inspecti ng all surfaces carefully. There were no neoplastic inflammatory or polypoid lesions throughout the cecum, ascending, transverse, descending, sigmoid and rectum. There was no visible diverticulosis noted. Digital rectal examination was normal. The patient was taken to the recovery room in stable condition per anesthesia guidelines. RECOMMENDATIONS: Resume diet. Repeat colonoscopy 7 to 10 years.
[2023-06-26 12:31] VITALS: BP 119/78; PULSE 91; RESP 14
== END 2023-06-26 11:53 | disposition home or self-care (01) ==
LOC: ORWHC2ENDO 10:15
PROVIDERS: ATTEND Surgery
DX: R19.4 Change in bowel habit (principal); I10 Essential (primary) hypertension; E78.5 Hyperlipidemia, unspecified; K21.9 Gastro-esophageal reflux disease without esophagitis; J44.9 Chronic obstructive pulmonary disease, unspecified; M79.7 Fibromyalgia; K58.9 Irritable bowel syndrome, unspecified; Z90.49 Acquired absence of other specified parts of digestive tract; Z90.89 Acquired absence of other organs; Z87.891 Personal history of nicotine dependence; Z80.1 Family history of malignant neoplasm of trachea, bronchus and lung; Z79.51 Long term (current) use of inhaled steroids; Z79.82 Long term (current) use of aspirin; Z79.02 Long term (current) use of antithrombotics/antiplatelets; Z79.899 Other long term (current) drug therapy; Z88.0 Allergy status to penicillin
CPT/HCPCS: 45378; J2704

== ENCOUNTER → 2024-04-02 | Outpatient (CLI) | payer OTHER ==
[2024-04-02 15:19] LABS: ALT 27 U/L (8-44); AST 32 U/L (13-35); Albumin 4.5 g/dL (3.8-4.9); Albumin/Globulin Ratio 1.88 Ratio (1.60-3.17); Alkaline Phosphatase 130 U/L (41-126); Blood Urea Nitrogen 14.4 mg/dL (9.0-27.0); Calcium 9.7 mg/dL (8.7-10.3); Carbon Dioxide 26.3 mmol/L (21.6-31.8); Chloride 107 mmol/L (96-109); Chol/HDL Ratio 2.14 Ratio; Globulin 2.4 g/dL (1.6-3.3); Glucose 99 mg/dL (70-110); LDL Cholesterol,Calculated 66.1 mg/dL (0.0-131.0); Potassium 5.4 mmol/L (3.5-5.5); Sodium 142 mmol/L (135-145); Total Bilirubin 0.2 mg/dL (0.3-1.2); Total Protein 6.9 g/dL (6.2-8.2); VLDL Calculation 16.38 mg/dL (5.00-40.00)
== END | disposition home or self-care (01) ==
LOC: LABWHC1 08:39
PROVIDERS: ATTEND Internal Medicine Interventional Cardiology
DX: E78.2 Mixed hyperlipidemia (principal)
CPT/HCPCS: 36415; 80053; 80061

== ENCOUNTER 2024-04-08 07:16 | Day surgery (SDC) | payer OTHER ==
[2024-04-04 09:24] VITALS: BMI 24.0
[~2024-04-08 07:16] MED LIST changes: +ALPRAZolam 0.25 MG TAB PO PRN; +ATORVASTATIN 80 MG TAB PO STA; -LIDOCAINE 1% (10MG/ML) FOR IV START INTRADERMA PRN; +NITROGLYCERIN SL TABS 0.4 MG TAB SUBLINGUAL PRN
[2024-04-08] MEDS: SODIUM CHLORIDE 0.9% 1,000 ML in EMPTY BAG 1 BAG IV SCH (07:37)
[2024-04-08] MEDS: ALPRAZolam 0.5 MG TAB PO PRN (07:37)
[2024-04-08] MEDS: ASPIRIN 325 MG TAB PO STA (07:38)
[2024-04-08 07:48] VITALS: RESP 16; TEMP 97.9
[2024-04-08] MEDS: IV FLUID CONTINUATION 1,000 ML IV ONE (07:48)
[2024-04-08 08:07] LABS: Basophils # (A) 0.1 k/uL (0-0.2); Basophils % (A) 1 %; Eosinophils # (A) 0.3 k/uL (0-0.7); Eosinophils % (A) 5 %; HCT 45.4 % (34.0-46.0); HGB 13.8 gm/dL (11.4-16.0); Hypochromasia Slight; Lymphocytes # (A) 2.1 k/uL (1.0-4.8); Lymphocytes % (A) 35 %; MCH 29.3 pg (25.0-35.0); MCHC 30.5 g/dL (31.0-37.0); MCV 96.3 fL (80.0-100.0); Monocytes # (A) 0.5 k/uL (0-1.0); Monocytes % (A) 8 %; Neutrophils # (A) 2.9 k/uL (1.3-7.7); Neutrophils % (A) 48 %; Platelet Count 207 k/uL (150-450); RBC 4.71 m/uL (3.80-5.40); RDW 13.9 % (11.5-15.5); WBC 5.9 k/uL (3.8-10.6)
[2024-04-08] MEDS: fentaNYL (PF) 50 MCG/ML 2 ML AMP IVP ONE (09:26)
[2024-04-08] MEDS: LIDOCAINE 1% INJ 10MG/ML (20 ML MDV) SQ ONE ×2 (09:33→09:45)
[2024-04-08] MEDS: MIDAZOLAM 2 MG/2 ML VIAL IVP ONE (09:45)
[2024-04-08] MEDS: HEPARIN SODIUM,PORCINE (1 ML) 2,500 UNIT in SODIUM CHLORIDE 0.9% 250 ML IRRIGATION PRN (09:56)
[2024-04-08] MEDS: IOPAMIDOL-370 100ML BTL INJ ONE (09:56)
[2024-04-08] MEDS: HEPARIN SODIUM,PORCINE 10,000 UNIT in SODIUM CHLORIDE 0.9% 1,000 ML IRRIGATION PRN (09:56)
[2024-04-08] MEDS ORDERED: RX INFO: IV CONTRAST WAS GIVEN 1 EACH MISC MISCELLANE PRN (10:08)
--- NOTE | 2024-04-08 10:14 | P.CARDCATH ---
Date of Procedure: 04/08/24 Description of Procedure: Cardiac Catheterization: The patient is a 64-year-old female with known history of hypertension, hyperlipidemia, prior PCI in 2018 who presented with recurrent discomfort, reminding her of the way she felt prior to her PCI. Recommendations were made regarding cardiac catheterization, the risks and the complications were discussed with the patient who is in full understanding and agreement. Procedure Description: Patient was brought to laborer drying department in fasting semi-sedated state after receiving Fentanyl and Benadryl achieiving moderate conscious sedated state. Using Xylocaine Anesthesia and modified Seldinger technique, a 6-Gib[place] sheath was introduced in the right femoral artery using micropuncture technique. Attempt to advance the wire in the right radial artery were unsuccessful. Subsequently, selective coronary angiography was performed using a 6-Gib[place]arian 4 bend Meet catheter. Multiple views of the coronary artery including hemiaxial views were obtained. The 6 [place] pigtail catheter was used to cross the aortic valve and LVEDP was calculated. Following that, catheter and sheath were removed. Hemostasis was obtained with deployment of an Angio-Seal. There was no immediate complication. Patient was returned to room in stable condition. Findings: Left main: This is a large size vessel, bifurcating into LAD and left circumflex, left main has no obstructive disease LAD: This is a large size vessel, calcified proximally, giving rise to a large diagonal branch. The LAD proximally has 20% plaque, the diagonal branch has a 20 to 30% plaque, the rest of the vessel has no high-grade stenosis Left circumflex: This is a large nondominant vessel giving rise to 2 obtuse marginal branch. The stented segment in the mid left circumflex is patent with no significant in-stent restenosis RCA: This is a large dominant vessel, bifurcating distally to PDA and PLV the proximal RCA has 10 to 20% intimal disease with no high-grade stenosis Left Ventriculogram: Not performed Hemodynamics: There was no gradient across the aortic valve, LVEDP was 14-16 mmHg Conclusion: 1. Patent stent in the left circumflex 2. Mild triple vessel disease 3. Right dominance 4. Normal LVEDP Recommendations: I have recommended to continue medical therapy with the aggressive coronary risk modification that has been initiated. The findings and the recommendations were discussed with the patient and the family and they were in full understanding and agreement. Duration of sedation is 25 minutes.
[2024-04-08] MEDS: SODIUM CHLORIDE 0.9% 1,000 ML IV SCH (10:30)
[2024-04-08] MEDS: ACETAMINOPHEN TAB 325 MG TAB PO STA (10:30)
[2024-04-08] MEDS: amLODIPine 5 MG TAB PO STA (12:33)
[2024-04-08 15:14] VITALS: BP 151/75; PULSE 76
[2024-04-08] MEDS ORDERED: CLOPIDOGREL 75 MG TAB PO SCH (21:00)
[2024-04-08] MEDS ORDERED: METOPROLOL TARTRATE 25 MG TAB PO SCH (21:00)
[2024-04-08] MEDS ORDERED: amLODIPine 5 MG TAB PO SCH (21:00)
[2024-04-09] MEDS ORDERED: ATORVASTATIN 80 MG TAB PO SCH (09:00)
== END 2024-04-08 15:11 | disposition home or self-care (01) ==
LOC: CATHCVL 07:16
PROVIDERS: ATTEND Internal Medicine Interventional Cardiology
DX: I25.110 Atherosclerotic heart disease of native coronary artery with unstable angina pectoris (principal); I25.84 Coronary atherosclerosis due to calcified coronary lesion; Z95.5 Presence of coronary angioplasty implant and graft; I10 Essential (primary) hypertension; E78.2 Mixed hyperlipidemia; Z79.02 Long term (current) use of antithrombotics/antiplatelets; Z79.899 Other long term (current) drug therapy; Z87.891 Personal history of nicotine dependence; Z82.49 Family history of ischemic heart disease and other diseases of the circulatory system; Z88.0 Allergy status to penicillin
CPT/HCPCS: 93458; 85025; J2250; J1644 ×2; J2003; J3010; Q9967